=== PATIENT | male | born 1945 | race Caucasian/White ===

== ENCOUNTER → 2016-09-01 | Outpatient (CLI) | payer OTHER, MEDICAID ==
[2016-05-24 14:13] VITALS: BP 148/72
[2016-09-01 11:36] LABS: EOSINOPHILS # (AUTO) 0.1 x10^3/uL (0.0-0.2); EOSINOPHILS % (AUTO) 1.4 % (0.9-2.9); HEMATOCRIT 39.9 % (42.0-54.0); HEMOGLOBIN 13.4 g/dL (13.5-18.0); LYMPHOCYTES # (AUTO) 1.4 X10^3/uL (1.3-2.9); LYMPHOCYTES % (AUTO) 29.7 % (21.0-51.0); MEAN CORPUSCULAR HEMOGLOBIN 28.2 pg (27.0-34.0); MEAN CORPUSCULAR HGB CONC 33.5 g/dL (33.0-35.0); MEAN CORPUSCULAR VOLUME 84.2 fL (80.0-100.0); MEAN PLATELET VOLUME 7.2 fL (7.4-11.0); MONOCYTES # (AUTO) 0.4 x10^3/uL (0.3-0.8); MONOCYTES % (AUTO) 9.3 % (0.0-13.0); NEUTROPHILS # (AUTO) 2.8 x10^3/uL (2.2-4.8); NEUTROPHILS % (AUTO) 58.6 % (42.0-75.0); PLATELET COUNT 187 X10^3/uL (150.0-450.0); RED BLOOD COUNT 4.74 X10^6/uL (4.7-6.0); RED CELL DISTRIBUTION WIDTH 14.8 % (11.6-16.5); WHITE BLOOD COUNT 4.7 X10^3/uL (3.6-10.0)
[2016-09-01 13:39] LABS: TOTAL PSA 0.37 ng/mL (0.13-4.0)
[2016-09-02 11:00] LABS: ALANINE AMINOTRANSFERASE 24 Units/L (12-78); ALBUMIN 4.3 g/dL (3.4-5.0); ALKALINE PHOSPHATASE 31 Units/L (46-116); ASPARTATE AMINO TRANSFERASE 19 Units/L (15-37); BLOOD UREA NITROGEN 20 mg/dL (7-18); CALCIUM 9.6 mg/dL (8.5-10.1); CARBON DIOXIDE 23.4 mmol/L (21-32); CHLORIDE 105 mmol/L (98-107); CHOL/HDL RATIO 3.3 (0.0-5.0); CHOLESTEROL 119 mg/dL (0-200); COR NA(FOR HYPERGLY) 143 mmol/L (136-145); CREATININE 1.03 mg/dL (0.70-1.30); FREE T4 (FREE THYROXINE) 0.98 ng/dL (0.76-1.46); GLUCOSE 142 mg/dL (65-99); HDL CHOLESTEROL 36 mg/dL (40-60); SODIUM 142 mmol/L (136-145); TOTAL PROTEIN 7.6 g/dL (6.4-8.2); TRIGLYCERIDES 69 mg/dL (0-150); TSH (3RD GENERATION) 2.015 uIU/mL (0.358-3.74); eGFR BLACK RACES > 60 (>60); eGFR NON BLACK RACES > 60 (>60)
== END ==
LOC: LAB 10:49
PROVIDERS: ATTEND Internal Medicine
DX: N40.0 Benign prostatic hyperplasia without lower urinary tract symptoms (principal); E11.9 Type 2 diabetes mellitus without complications; I10 Essential (primary) hypertension; E78.4 Other hyperlipidemia
CPT/HCPCS: 36415; 80053; 80061; 84153; 84439; 84443; 85025

== ENCOUNTER 2016-12-24 10:55 | Inpatient (IN) | payer OTHER, MEDICAID ==
[2016-12-24] MEDS: NS 1/2 1000 ML IV 1,000 ML IV SCH ×2 (11:00→20:51)
[2016-12-24] MEDS ORDERED: TUSSIONEX PENNKINETIC SUSP PO PRN (11:02)
[2016-12-24] MEDS ORDERED: TYLENOL 500 MG TAB EXTRA STRENGTH PO STA (11:05)
[2016-12-24] MEDS ORDERED: NS 1000 ML 1,000 ML ONE (11:09)
[2016-12-24] MEDS ORDERED: SALINE 3% 15 ML NEB TX ONE (11:31)
[2016-12-24] MEDS ORDERED: NS 1/2 1000 ML IV 1,000 ML IV ONE ×2 (11:42→20:50)
--- NOTE | 2016-12-24 11:42 | RAD ---
AP Chest Indication: Cough with shortness of breath Comparison: 12/12/2015 Findings: The trachea is midline. The cardiac silhouette is unremarkable. The previous CABG changes and left chest wall pacemaker are stable. Ther are increasing interstitial opacities within the left lung s uspicious for developing atypical pneumonia/bronchitis. No pleural effusion or pneumothorax.. The b justine thorax is unremarkable. IMPRESSION: 1. Increased interstitial opacities within the left lung suspicious for developing atypical pneumon ia and or bronchitis. Reported By:
[2016-12-24] MEDS: LEVAQUIN PREMIX IV 750 MG 750 MG/150 ML BAG IV SCH (11:45)
[2016-12-24] MEDS ORDERED: SALINE 3% 15 ML NEB TX NEB ONE (11:50)
[2016-12-24 11:54] LABS: BASOPHILS % (AUTO) 0.5 % (0.2-1.0); HEMATOCRIT 37.4 % (42.0-54.0); HEMOGLOBIN 12.8 g/dL (13.5-18.0); LYMPHOCYTES # (AUTO) 0.4 X10^3/uL (1.3-2.9); LYMPHOCYTES % (AUTO) 10.7 % (21.0-51.0); MEAN CORPUSCULAR HEMOGLOBIN 28.8 pg (27.0-34.0); MEAN CORPUSCULAR HGB CONC 34.2 g/dL (33.0-35.0); MEAN CORPUSCULAR VOLUME 84.2 fL (80.0-100.0); MEAN PLATELET VOLUME 7.6 fL (7.4-11.0); MONOCYTES # (AUTO) 0.3 x10^3/uL (0.3-0.8); MONOCYTES % (AUTO) 6.7 % (0.0-13.0); NEUTROPHILS # (AUTO) 3.2 x10^3/uL (2.2-4.8); NEUTROPHILS % (AUTO) 81.1 % (42.0-75.0); PLATELET COUNT 171 X10^3/uL (150.0-450.0); RED BLOOD COUNT 4.44 X10^6/uL (4.7-6.0)
[2016-12-24 12:05] LABS: BLOOD UREA NITROGEN 18 mg/dL (7-18); CALCIUM 8.7 mg/dL (8.5-10.1); CARBON DIOXIDE 18.8 mmol/L (21-32); CHLORIDE 104 mmol/L (98-107); COR NA(FOR HYPERGLY) 140 mmol/L (136-145); CREATININE 1.26 mg/dL (0.70-1.30); GLUCOSE 170 mg/dL (65-99); SODIUM 138 mmol/L (136-145); TROPONIN I < 0.02 ng/mL (0-1.5); eGFR BLACK RACES > 60 (>60); eGFR NON BLACK RACES 60 (>60)
[2016-12-24 12:07] LABS: B-TYPE NATRIURETIC PEPTIDE 205 pg/mL (0-79)
[2016-12-24 12:10] LABS: ALANINE AMINOTRANSFERASE 8 Units/L (12-78); ALBUMIN 3.3 g/dL (3.4-5.0); ALKALINE PHOSPHATASE 36 Units/L (46-116); ASPARTATE AMINO TRANSFERASE 17 Units/L (15-37); CKMB % 1.3 % (<4); COR CA(FOR HYPOALB) 9.3 mg/dL (8.5-10.1); CREATINE KINASE 80 Units/L (39-308); TOTAL PROTEIN 6.4 g/dL (6.4-8.2)
[2016-12-24] MEDS: ROBITUSSIN DM PO SCH ×3 (12:12→20:43)
[2016-12-24 12:26] VITALS: BMI 30.4
[2016-12-24] MEDS ORDERED: PROVENTIL NEB TX 0.083% 2.5MG/ 3ML NEB PRN (12:27)
--- NOTE | 2016-12-24 12:55 | DR.H&P ---
H&P - History & Physical for Day of: H&P Date: 12/24/16 - Chief Complaint Chief Complaint: fever, cough, syncope - Allergies Allergies/Adverse Reactions: Allergies Allergy/AdvReac Type Severity Reaction Status Date / Time No Known Drug Allergies Allergy Verified 12/24/16 12:11 - History of Present Illness History of Present Illness: 71 WM DIRECT ADMIT FROM DR GAMBOA OFFICE AFTER PRESENTING WITH CO FEVER, WEAKNESS AND COUGH FOR LAST SEVERAL DAYS. PT WAS TREATED IN OCTOBER FOR BRONCHITIS AND COMPLETED OUTPT INJECTIONS OF ROCEPHIN AND PO ANITBIOTICS. PT HAD SYNCOPAL EPISODE IN PARKING LOT AT OFFICE THIS AM PRIOR TO ADMISSION. PT WAS NOTED TO BE DIAPHORETIC AND FEVER 102.2. PT HAS PMH OF CHF , COPD, CVA, DM, HTN, CAD, CHF, PT ADMITTED TO ICU FOR FURTHER EVALUATION OF SYNCOPE AND R/O PNEUMONIA. PLAN TO FOLLOW PNEUMONIA PATHWAY AND CARDIAC ENZYMES - Past Medical History Past Medical History: Angina, Arthritis, CHF, Coronary Artery Disease, CVA, Diabetes, Dyslipidemia, GERD, Hypertension, [place] - Past Surgical History Surgical History: Angioplasty/Stents, CABG/Valve Surgery, Cholecystectomy Additional Surgical History: Patient has pacemaker. - Family History Family Medical History: Diabetes Mellitus, Cancer, Hypertension - Social History Does patient currently use any type of tobacco product: No Have you used tobacco products in the last 12 months: No Type of Tobacco Use: None Alcohol Use: None Drug Use: None - Review of Systems Constitutional: Fever, Chills, Sweats, Weakness Eyes: No Symptoms Reported ENT: No Symptoms Reported Respiratory: Cough, Shortness of Breath, SOB with Excertion, Wheezing Cardiovascular: Edema, Light Headedness Gastrointestinal: No Symptoms Reported Genitourinary: No Symptoms Reported Musculoskeletal: No Symptoms Reported Skin: Other (DIAPHORESIS) Neurological: Weakness - Physical Exam Vital Signs: Temperature 100.5 F Pulse Rate [Apical] 92 Pulse Rate 91 Respiratory Rate 27 Blood Pressure [Left Arm] 87/51 Blood Pressure [Right Arm] 148/72 Blood Pressure 148/72 O2 Sat by Pulse Oximetry 95 Oriented: Normal Eyes: Normal Ear: Normal Nose: Normal Throat: Dry Respiratory: Rhonchi Throughout, RLL Diminished, LLL Diminished Cardiovascular: Tachycardia : Dysuria Auscultation: Bowel Sounds: Normal Palpation: Normal Tenderness: Normal Skin: Diaphoresis Musculoskeletal: Back:Thoracic, Back:Lumbar, Motor Deficit (RUE TREMOR) Psychiatric: Anxiety Affect: Anxious Speech Pattern: Appropriate - Assessment/Plan (1) Syncope Qualifiers: Syncope type: S Encounter type: E Status: Acute Plan: ADMIT ICU, CARDIAC MONITORING, CARDIAC ENZYMES. CXR ON ADMISSION, EKG ON ADMISSION, PNEUMONIA PATHWAY. O2, BLOOD AND SPUTUM CULTURES, IV LEVAQUIN AND ZOSYN. BLOOD SUGAR CONTROL, BLOOD PRESSURE CONTROL (2) Fever Qualifiers: Fever type: F Encounter type: E Status: Acute (3) Pneumonia Qualifiers: Pneumonia type: P Aspiration pneumonia type: A Laterality: L Lung location: L Status: Acute (4) Diabetes type 2, uncontrolled Qualifiers: Diabetes mellitus complication status: D Diabetes mellitus complication detail: D Diabetic retinopathy severity: D Proliferative retinopathy type: P Diabetes mellitus macular edema: D Diabetes mellitus care home insulin use : D Laterality: L Chronic kidney disease stage: C Status: Chronic (5) Hypertension Qualifiers: Hypertension type: essential hypertension Qualified Code(s): I10 - Essential (primary) hypertension Status: Chronic
[2016-12-24] MEDS: ZOSYN VIAL 4.5 GM 4.5 GM in NS 100 ML IV + SPIKE MINIBAG* 100 ML IV SCH ×2 (14:21→21:00)
[2016-12-24] MEDS: DUONEB 0.5 MG/3 MG NEB SCH (17:17)
[2016-12-24] MEDS ORDERED: HYDROCODONE PO PRN (18:04)
[2016-12-24] MEDS ORDERED: IBUPROFEN PO PRN (18:04)
[2016-12-24 19:39] LABS: BILIRUBIN,URINE NEGATIVE (NEGATIVE); BLOOD/HEMOGLOBIN,URINE NEGATIVE (NEGATIVE); GLUCOSE, URINE 2+ (NEGATIVE); KETONES,URINE NEGATIVE (NEGATIVE); LEUKOCYTE ESTERASE ,URINE NEGATIVE (NEGATIVE); NITRITES,URINE NEGATIVE (NEGATIVE); PROTEIN,URINE NEGATIVE (NEGATIVE); UROBILINOGEN,URINE NORMAL (NORMAL)
[2016-12-24 19:46] LABS: APPEARANCE,URINE HAZY (CLEAR); BACTERIA,URINE TRACE /HPF (NEGATIVE); COLOR,URINE YELLOW (YELLOW); RBC,URINE 0-2 /HPF (NEGATIVE); SQUAMOUS EPITHELIAL CELL,UR NEGATIVE /HPF (NEGATIVE)
[2016-12-24] MEDS: ISOSORBIDE DINITRATE PO SCH (20:40)
[2016-12-24] MEDS: RANEXA PO SCH (20:41)
[2016-12-24] MEDS: COREG TAB 3.125 MG PO SCH (20:42)
[2016-12-24] MEDS: LIPITOR TAB 40 MG PO SCH (20:42)
[2016-12-24] MEDS: TRICOR TAB 160 MG PO SCH (20:42)
[2016-12-24] MEDS: SNACK - Diabetic Appropriate PO SCH (20:51)
[2016-12-24] MEDS: NEURONTIN CAP 100 MG PO SCH (21:00)
[2016-12-24] MEDS ORDERED: PATIENT'S HOME MEDICATION (Fenofibrate [Fenofibrate 160 Mg] 160 MG) PO SCH (21:00)
[2016-12-25] MEDS: DUONEB 0.5 MG/3 MG NEB SCH ×5 (00:11→23:54)
[2016-12-25] MEDS: NS 1/2 1000 ML IV 1,000 ML IV SCH ×2 (04:02→16:46)
[2016-12-25] MEDS: ZOSYN VIAL 4.5 GM 4.5 GM in NS 100 ML IV + SPIKE MINIBAG* 100 ML IV SCH ×3 (05:39→20:59)
[2016-12-25] MEDS: NEURONTIN CAP 100 MG PO SCH ×3 (05:39→20:59)
[2016-12-25 05:47] LABS: BASOPHILS % (AUTO) 0.3 % (0.2-1.0); EOSINOPHILS # (AUTO) 0.1 x10^3/uL (0.0-0.2); EOSINOPHILS % (AUTO) 0.5 % (0.9-2.9); HEMATOCRIT 35.1 % (42.0-54.0); HEMOGLOBIN 12.1 g/dL (13.5-18.0); LYMPHOCYTES # (AUTO) 1.3 X10^3/uL (1.3-2.9); LYMPHOCYTES % (AUTO) 13.6 % (21.0-51.0); MEAN CORPUSCULAR HEMOGLOBIN 28.6 pg (27.0-34.0); MEAN CORPUSCULAR HGB CONC 34.4 g/dL (33.0-35.0); MEAN CORPUSCULAR VOLUME 83.2 fL (80.0-100.0); MEAN PLATELET VOLUME 7.5 fL (7.4-11.0); MONOCYTES # (AUTO) 0.9 x10^3/uL (0.3-0.8); MONOCYTES % (AUTO) 9.1 % (0.0-13.0); NEUTROPHILS # (AUTO) 7.6 x10^3/uL (2.2-4.8); NEUTROPHILS % (AUTO) 76.5 % (42.0-75.0); PLATELET COUNT 159 X10^3/uL (150.0-450.0); RED BLOOD COUNT 4.22 X10^6/uL (4.7-6.0); RED CELL DISTRIBUTION WIDTH 15.1 % (11.6-16.5); WHITE BLOOD COUNT 9.9 X10^3/uL (3.6-10.0)
[2016-12-25 05:54] LABS: ALANINE AMINOTRANSFERASE 18 Units/L (12-78); ALKALINE PHOSPHATASE 20 Units/L (46-116); ASPARTATE AMINO TRANSFERASE 19 Units/L (15-37); BLOOD UREA NITROGEN 13 mg/dL (7-18); CALCIUM 8.4 mg/dL (8.5-10.1); CARBON DIOXIDE 24.6 mmol/L (21-32); CHLORIDE 107 mmol/L (98-107); COR CA(FOR HYPOALB) 9.2 mg/dL (8.5-10.1); COR NA(FOR HYPERGLY) 142 mmol/L (136-145); CREATININE 1.06 mg/dL (0.70-1.30); GLUCOSE 130 mg/dL (65-99); SODIUM 141 mmol/L (136-145); TOTAL PROTEIN 6.5 g/dL (6.4-8.2); eGFR BLACK RACES > 60 (>60); eGFR NON BLACK RACES > 60 (>60)
[2016-12-25] MEDS: MICRO K EXTEN CAP 10 MEQ PO SCH (08:10)
[2016-12-25] MEDS: ZETIA TAB 10 MG PO SCH (08:10)
[2016-12-25] MEDS: COREG TAB 3.125 MG PO SCH ×2 (08:10→20:36)
[2016-12-25] MEDS: LASIX PO SCH (08:10)
[2016-12-25] MEDS: ISOSORBIDE DINITRATE PO SCH ×2 (08:10→20:37)
[2016-12-25] MEDS: ASPIRIN EC 81 MG PO SCH (08:10)
[2016-12-25] MEDS: CELEXA PO SCH (08:10)
[2016-12-25] MEDS: PriLOSEC PO SCH (08:10)
[2016-12-25] MEDS: LEVAQUIN PREMIX IV 750 MG 750 MG/150 ML BAG IV SCH (08:11)
[2016-12-25] MEDS: PLAVIX PO SCH (08:11)
[2016-12-25] MEDS: ROBITUSSIN DM PO SCH ×4 (08:11→20:39)
[2016-12-25] MEDS: RANEXA PO SCH ×2 (08:12→20:36)
[2016-12-25] MEDS ORDERED: OMEPRAZOLE 20 MG PO SCH (09:00)
[2016-12-25] MEDS ORDERED: PATIENT'S HOME MEDICATION (Potassium Chloride [K-Tab Er] 10 MEQ) PO SCH (09:00)
[2016-12-25] MEDS: HumuLIN R SUBCUT PRN ×2 (10:58→16:51)
--- NOTE | 2016-12-25 12:56 | PCM.PROG ---
Progress Note - Progress Note for Day of Date: 12/25/16 - Subjective Subjective: 71 wm admitted one day ago with pneumonia. pt states he has continues with cough, "feels bad" not able to produce sputum culture. continue iv abtx, pulmonary toileting, repeat am labs and cxr. - Past Medical Family Social History Past Med/Fam/Surg Hx: No changes since H&P Allergies: Allergies No Known Drug Allergies Allergy (Verified 12/24/16 12:11) - Review of Systems ROS: No change since H&P - Vital Signs and I&O's Vital Signs: Temperature 98.4 F Pulse Rate [Apical] 63 Pulse Rate 70 Respiratory Rate 14 Blood Pressure [Left Arm] 102/46 Blood Pressure [Right Arm] 148/72 Blood Pressure 148/72 O2 Sat by Pulse Oximetry 96 Intake and Output: Intake & Output 12/23/16 12/24/16 12/25/16 12/26/16 11:59 11:59 11:59 11:59 Intake Total 3400 Output Total 2450 Balance 950 - Physical Exam Oriented: Normal Eyes: Normal Ear: Normal Nose: Normal Throat: Dry Respiratory: Diminished, Rhonchi Cardiovascular: Tachycardia : Dysuria Auscultation: Bowel Sounds: Normal Tenderness: Normal Skin: Diaphoresis Musculoskeletal: Back:Thoracic, Back:Lumbar, Motor Deficit (RUE TREMOR) Psychiatric: Anxiety Affect: Anxious Speech Pattern: Clear, Appropriate - Laboratory and Diagnostics Result Diagrams: 12/25/16 05:27 12/25/16 05:27 Labs: Laboratory WBC 9.9 X10^3/uL (3.6-10.0) 12/25/16 05:27 RBC 4.22 X10^6/uL (4.7-6.0) L 12/25/16 05:27 Hgb 12.1 g/dL (13.5-18.0) L 12/25/16 05:27 Hct 35.1 % (42.0-54.0) L 12/25/16 05:27 MCV 83.2 fL (80.0-100.0) 12/25/16 05:27 MCH 28.6 pg (27.0-34.0) 12/25/16 05:27 MCHC 34.4 g/dL (33.0-35.0) 12/25/16 05:27 RDW 15.1 % (11.6-16.5) 12/25/16 05:27 Plt Count 159 X10^3/uL (150.0-450.0) 12/25/16 05:27 MPV 7.5 fL (7.4-11.0) 12/25/16 05:27 Neut % 76.5 % (42.0-75.0) H 12/25/16 05:27 Lymph % 13.6 % (21.0-51.0) L 12/25/16 05:27 Nelson % 9.1 % (0.0-13.0) 12/25/16 05:27 Eos % 0.5 % (0.9-2.9) L 12/25/16 05:27 Baso % 0.3 % (0.2-1.0) 12/25/16 05:27 Neut # 7.6 x10^3/uL (2.2-4.8) H 12/25/16 05:27 Lymph # 1.3 X10^3/uL (1.3-2.9) 12/25/16 05:27 Nelson # 0.9 x10^3/uL (0.3-0.8) H 12/25/16 05:27 Eos # 0.1 x10^3/uL (0.0-0.2) 12/25/16 05:27 Baso # 0.0 X10^3/uL (0.0-0.1) 12/25/16 05:27 Absolute Nucleated RBC 0.0 /100WBC 12/25/16 05:27 Sodium 141 mmol/L (136-145) 12/25/16 05:27 Corrected Sodium 142 mmol/L (136-145) 12/25/16 05:27 Potassium 3.9 mmol/L (3.5-5.1) 12/25/16 05:27 Chloride 107 mmol/L (98-107) 12/25/16 05:27 Carbon Dioxide 24.6 mmol/L (21-32) 12/25/16 05:27 BUN 13 mg/dL (7-18) 12/25/16 05:27 Creatinine 1.06 mg/dL (0.70-1.30) 12/25/16 05:27 Est GFR (MDRD) Af Amer > 60 (>60) 12/25/16 05:27 Est GFR (MDRD) Non-Af > 60 (>60) 12/25/16 05:27 Glucose 130 mg/dL (65-99) H 12/25/16 05:27 Calcium 8.4 mg/dL (8.5-10.1) L 12/25/16 05:27 Corrected Calcium 9.2 mg/dL (8.5-10.1) 12/25/16 05:27 Total Bilirubin 1.30 mg/dL (0.2-1.0) H 12/25/16 05:27 AST 19 Units/L (15-37) 12/25/16 05:27 ALT 18 Units/L (12-78) 12/25/16 05:27 Alkaline Phosphatase 20 Units/L (46-116) L 12/25/16 05:27 Creatine Kinase 80 Units/L (39-308) 12/24/16 11:21 CK-MB (CK-2) 1.0 ng/mL (0-4.0) 12/24/16 11:21 CK/CKMB % Calc 1.3 % (<4) 12/24/16 11:21 Troponin I < 0.02 ng/mL (0-1.5) 12/24/16 11:21 B-Natriuretic Peptide 205 pg/mL (0-79) H 12/24/16 11:21 Total Protein 6.5 g/dL (6.4-8.2) 12/25/16 05:27 Albumin 3.0 g/dL (3.4-5.0) L 12/25/16 05:27 Globulin 3.5 g/dL (2.5-4.5) 12/25/16 05:27 Albumin/Globulin Ratio 0.9 Ratio (1.1-2.1) L 12/25/16 05:27 Specimen Type Clean catch urine 12/24/16 19:16 Urine Color Yellow (YELLOW) 12/24/16 19:16 Urine Appearance Hazy (CLEAR) 12/24/16 19:16 Urine pH 5.0 (5.0 - 8.0) 12/24/16 19:16 Ur Specific [place] 1.010 (1.000-1.030) 12/24/16 19:16 Urine Protein Negative (NEGATIVE) 12/24/16 19:16 Urine Glucose (UA) 2+ (NEGATIVE) 12/24/16 19:16 Urine Ketones Negative (NEGATIVE) 12/24/16 19:16 Urine Occult Blood Negative (NEGATIVE) 12/24/16 19:16 Urine Nitrite Negative (NEGATIVE) 12/24/16 19:16 Urine Bilirubin Negative (NEGATIVE) 12/24/16 19:16 Urine Urobilinogen Normal (NORMAL) 12/24/16 19:16 Ur Leukocyte Esterase Negative (NEGATIVE) 12/24/16 19:16 Urine RBC 0-2 /HPF (NEGATIVE) 12/24/16 19:16 Urine WBC 0-2 /HPF (NEGATIVE) 12/24/16 19:16 Ur Squamous Epith Cells Negative /HPF (NEGATIVE) 12/24/16 19:16 Urine Bacteria Trace /HPF (NEGATIVE) 12/24/16 19:16 Ur Culture Indicated? No/not indicated 12/24/16 19:16 - Plan (1) Pneumonia Status: Acute Qualifiers: Pneumonia type: P Aspiration pneumonia type: A Laterality: L Lung location: L Plan: CONTINUE IV ATBX, RESP THERAPY, JET NEBS, SUPPLEMENTAL O2. BLOOD SUGAR CONTROL, BLOOD PRESSURE CONTROL (2) Fever Status: Acute Qualifiers: Fever type: F Encounter type: E (3) Diabetes type 2, uncontrolled Status: Chronic Qualifiers: Diabetes mellitus complication status: D Diabetes mellitus complication detail: D Diabetic retinopathy severity: D Proliferative retinopathy type: P Diabetes mellitus macular edema: D Diabetes mellitus terminologist insulin use : D Laterality: L Chronic kidney disease stage: C (4) Hypertension Status: Chronic Qualifiers: Hypertension type: essential hypertension Qualified Code(s): I10 - Essential (primary) hypertension
[2016-12-25] MEDS ORDERED: NS 1/2 1000 ML IV 1,000 ML IV ONE (16:44)
[2016-12-25] MEDS: LIPITOR TAB 40 MG PO SCH (20:36)
[2016-12-25] MEDS: SNACK - Diabetic Appropriate PO SCH (20:38)
[2016-12-25] MEDS: TRICOR TAB 160 MG PO SCH (20:38)
[2016-12-25] MEDS ORDERED: ARICEPT TAB 10 MG PO SCH (21:00)
[2016-12-26] MEDS ORDERED: NS 1/2 1000 ML IV 1,000 ML IV ONE ×2 (05:32→21:31)
[2016-12-26] MEDS: DUONEB 0.5 MG/3 MG NEB SCH ×4 (05:32→23:10)
[2016-12-26] MEDS: ZOSYN VIAL 4.5 GM 4.5 GM in NS 100 ML IV + SPIKE MINIBAG* 100 ML IV SCH ×3 (05:38→21:38)
[2016-12-26] MEDS: NS 1/2 1000 ML IV 1,000 ML IV SCH ×3 (05:38→22:36)
[2016-12-26] MEDS: NEURONTIN CAP 100 MG PO SCH ×3 (05:39→21:40)
[2016-12-26 06:12] LABS: BASOPHILS % (AUTO) 0.6 % (0.2-1.0); EOSINOPHILS # (AUTO) 0.2 x10^3/uL (0.0-0.2); EOSINOPHILS % (AUTO) 2.3 % (0.9-2.9); HEMATOCRIT 32.6 % (42.0-54.0); HEMOGLOBIN 11.2 g/dL (13.5-18.0); LYMPHOCYTES # (AUTO) 1.2 X10^3/uL (1.3-2.9); LYMPHOCYTES % (AUTO) 15.5 % (21.0-51.0); MEAN CORPUSCULAR HEMOGLOBIN 28.6 pg (27.0-34.0); MEAN CORPUSCULAR HGB CONC 34.5 g/dL (33.0-35.0); MEAN CORPUSCULAR VOLUME 82.9 fL (80.0-100.0); MEAN PLATELET VOLUME 7.5 fL (7.4-11.0); MONOCYTES # (AUTO) 0.6 x10^3/uL (0.3-0.8); MONOCYTES % (AUTO) 8.6 % (0.0-13.0); NEUTROPHILS # (AUTO) 5.5 x10^3/uL (2.2-4.8); PLATELET COUNT 158 X10^3/uL (150.0-450.0); RED BLOOD COUNT 3.93 X10^6/uL (4.7-6.0); RED CELL DISTRIBUTION WIDTH 14.3 % (11.6-16.5); WHITE BLOOD COUNT 7.5 X10^3/uL (3.6-10.0)
[2016-12-26 06:24] LABS: ALANINE AMINOTRANSFERASE 16 Units/L (12-78); ALBUMIN 2.7 g/dL (3.4-5.0); ALKALINE PHOSPHATASE 22 Units/L (46-116); ASPARTATE AMINO TRANSFERASE 14 Units/L (15-37); BLOOD UREA NITROGEN 12 mg/dL (7-18); CALCIUM 8.7 mg/dL (8.5-10.1); CARBON DIOXIDE 24.3 mmol/L (21-32); CHLORIDE 107 mmol/L (98-107); COR CA(FOR HYPOALB) 9.7 mg/dL (8.5-10.1); COR NA(FOR HYPERGLY) 142 mmol/L (136-145); CREATININE 1.04 mg/dL (0.70-1.30); GLUCOSE 160 mg/dL (65-99); SODIUM 141 mmol/L (136-145); TOTAL PROTEIN 6.6 g/dL (6.4-8.2); eGFR BLACK RACES > 60 (>60); eGFR NON BLACK RACES > 60 (>60)
--- NOTE | 2016-12-26 07:08 | RAD ---
HISTORY: 71-year-old male with shortness of breath. Study: Frontal view of the chest. Comparison: Chest radiograph December 24, 2016 Findings: Surgical and support devices are stable. The trachea is midline. The cardiac silhouette is stable. Worsening airspace opacities in the left lung base without pneumothorax or large effusion. Soft tissues and osseous structures are stable. IMPRESSION: 1. Worsening airspace opacities left lung base concerning for pneumonia, correlate clinically. Reported By:
[2016-12-26] MEDS: LEVAQUIN PREMIX IV 750 MG 750 MG/150 ML BAG IV SCH ×2 (08:27→09:09)
[2016-12-26] MEDS: ISOSORBIDE DINITRATE PO SCH ×3 (08:27→21:39)
[2016-12-26] MEDS: ROBITUSSIN DM PO SCH ×5 (08:27→21:41)
[2016-12-26] MEDS: RANEXA PO SCH ×3 (08:28→21:41)
[2016-12-26] MEDS: LASIX PO SCH ×2 (08:28→09:09)
[2016-12-26] MEDS: COREG TAB 3.125 MG PO SCH ×3 (08:28→21:40)
[2016-12-26] MEDS: ZETIA TAB 10 MG PO SCH ×2 (08:28→09:10)
[2016-12-26] MEDS: ASPIRIN EC 81 MG PO SCH ×2 (08:28→09:08)
[2016-12-26] MEDS: PriLOSEC PO SCH ×2 (08:29→09:10)
[2016-12-26] MEDS: CELEXA PO SCH ×2 (08:29→09:08)
[2016-12-26] MEDS: PLAVIX PO SCH ×2 (08:29→09:10)
[2016-12-26] MEDS: MICRO K EXTEN CAP 10 MEQ PO SCH ×2 (08:30→09:09)
[2016-12-26] MEDS ORDERED: HYDROCODONE PO PRN (08:54)
[2016-12-26] MEDS ORDERED: IBUPROFEN PO PRN (08:54)
[2016-12-26] MEDS ORDERED: PROVENTIL NEB TX 0.083% 2.5MG/ 3ML NEB PRN (08:54)
[2016-12-26] MEDS ORDERED: TUSSIONEX PENNKINETIC SUSP PO PRN (08:54)
[2016-12-26] MEDS ORDERED: FOLIC ACID TAB 1 MG PO SCH (09:00)
[2016-12-26] MEDS ORDERED: VITAMIN B-12 PO SCH (09:00)
[2016-12-26] MEDS ORDERED: CYANOCOBALAMIN PO SCH (09:00)
[2016-12-26] MEDS ORDERED: NORCO 7.5/325 MG TAB PO PRN (09:01)
[2016-12-26] MEDS: FOLIC ACID TAB 1 MG PO SCH (09:08)
[2016-12-26] MEDS: VITAMIN B-12 PO SCH (09:10)
[2016-12-26] MEDS: HumuLIN R SUBCUT PRN (11:29)
[2016-12-26] MEDS ORDERED: SNACK - Diabetic Appropriate PO SCH ×2 (20:00)
[2016-12-26] MEDS ORDERED: LIPITOR TAB 40 MG PO SCH (21:00)
[2016-12-26] MEDS ORDERED: TRICOR TAB 160 MG PO SCH (21:00)
[2016-12-26] MEDS ORDERED: ARICEPT TAB 10 MG PO SCH (21:00)
[2016-12-27] MEDS: DUONEB 0.5 MG/3 MG NEB SCH (05:10)
[2016-12-27 05:24] LABS: BASOPHILS % (AUTO) 0.5 % (0.2-1.0); EOSINOPHILS # (AUTO) 0.2 x10^3/uL (0.0-0.2); EOSINOPHILS % (AUTO) 3.3 % (0.9-2.9); HEMATOCRIT 32.9 % (42.0-54.0); HEMOGLOBIN 11.5 g/dL (13.5-18.0); LYMPHOCYTES # (AUTO) 1.2 X10^3/uL (1.3-2.9); LYMPHOCYTES % (AUTO) 18.4 % (21.0-51.0); MEAN CORPUSCULAR HEMOGLOBIN 28.9 pg (27.0-34.0); MEAN CORPUSCULAR HGB CONC 34.9 g/dL (33.0-35.0); MEAN CORPUSCULAR VOLUME 82.8 fL (80.0-100.0); MEAN PLATELET VOLUME 7.3 fL (7.4-11.0); MONOCYTES # (AUTO) 0.5 x10^3/uL (0.3-0.8); MONOCYTES % (AUTO) 8.2 % (0.0-13.0); NEUTROPHILS # (AUTO) 4.4 x10^3/uL (2.2-4.8); NEUTROPHILS % (AUTO) 69.6 % (42.0-75.0); PLATELET COUNT 184 X10^3/uL (150.0-450.0); RED BLOOD COUNT 3.97 X10^6/uL (4.7-6.0); RED CELL DISTRIBUTION WIDTH 14.8 % (11.6-16.5); WHITE BLOOD COUNT 6.4 X10^3/uL (3.6-10.0)
[2016-12-27 05:34] LABS: ALANINE AMINOTRANSFERASE 16 Units/L (12-78); ALBUMIN 2.7 g/dL (3.4-5.0); ALKALINE PHOSPHATASE 22 Units/L (46-116); ASPARTATE AMINO TRANSFERASE 13 Units/L (15-37); BLOOD UREA NITROGEN 12 mg/dL (7-18); CALCIUM 8.9 mg/dL (8.5-10.1); CARBON DIOXIDE 25.5 mmol/L (21-32); CHLORIDE 107 mmol/L (98-107); COR CA(FOR HYPOALB) 9.9 mg/dL (8.5-10.1); COR NA(FOR HYPERGLY) 142 mmol/L (136-145); CREATININE 1.02 mg/dL (0.70-1.30); GLUCOSE 179 mg/dL (65-99); SODIUM 140 mmol/L (136-145); TOTAL PROTEIN 6.5 g/dL (6.4-8.2); eGFR BLACK RACES > 60 (>60); eGFR NON BLACK RACES > 60 (>60)
[2016-12-27] MEDS: ZOSYN VIAL 4.5 GM 4.5 GM in NS 100 ML IV + SPIKE MINIBAG* 100 ML IV SCH (06:15)
[2016-12-27] MEDS: NEURONTIN CAP 100 MG PO SCH (06:15)
[2016-12-27] MEDS: HumuLIN R SUBCUT PRN (06:19)
--- NOTE | 2016-12-27 06:56 | RAD ---
HISTORY: cough and pneumonia Study: Portable chest Comparison: 12/26/2016 Findings: The heart is normal. The pulmonary vessels are less prominent centrally . There is hazy left basilar opacity which is decreased. No large effusion is seen . There is a left pacemaker in place which is unchanged . There postop changes are seen in the mediastinum and sternum which are unchanged. IMPRESSION: Resolving pulmonary edema. Slowly resolving left basilar infiltrate. Reported By:
[2016-12-27] MEDS: LEVAQUIN PREMIX IV 750 MG 750 MG/150 ML BAG IV SCH (08:32)
[2016-12-27] MEDS: RANEXA PO SCH (08:32)
[2016-12-27] MEDS: VITAMIN B-12 PO SCH (08:33)
[2016-12-27] MEDS: MICRO K EXTEN CAP 10 MEQ PO SCH (08:33)
[2016-12-27] MEDS: ASPIRIN EC 81 MG PO SCH (08:33)
[2016-12-27] MEDS: LASIX PO SCH (08:33)
[2016-12-27] MEDS: ZETIA TAB 10 MG PO SCH (08:34)
[2016-12-27] MEDS: FOLIC ACID TAB 1 MG PO SCH (08:34)
[2016-12-27] MEDS: COREG TAB 3.125 MG PO SCH (08:34)
[2016-12-27] MEDS: PLAVIX PO SCH (08:34)
[2016-12-27] MEDS: CELEXA PO SCH (08:35)
[2016-12-27] MEDS: ISOSORBIDE DINITRATE PO SCH (08:35)
[2016-12-27] MEDS: ROBITUSSIN DM PO SCH (08:35)
[2016-12-27] MEDS: PriLOSEC PO SCH (08:35)
[2016-12-27] MEDS ORDERED: NS 1/2 1000 ML IV 0 ML IV ONE (09:02)
[2016-12-27 09:07] VITALS: BP 131/63
[2016-12-27] MEDS: NS 1/2 1000 ML IV 1,000 ML IV SCH (09:18)
== END 2016-12-27 11:10 | disposition home or self-care (01) | DRG 195 ==
LOC: UNDOADMIN 10:55 → ICU 10:55
PROVIDERS: ADMIT Internal Medicine; ATTEND Internal Medicine
DX: J18.8 Other pneumonia, unspecified organism (principal); R55 Syncope and collapse; R50.9 Fever, unspecified; J44.9 Chronic obstructive pulmonary disease, unspecified; E11.65 Type 2 diabetes mellitus with hyperglycemia; I10 Essential (primary) hypertension; I25.10 Atherosclerotic heart disease of native coronary artery without angina pectoris; M13.89 Other specified arthritis, multiple sites; E78.2 Mixed hyperlipidemia; K21.9 Gastro-esophageal reflux disease without esophagitis; R06.02 Shortness of breath
CPT/HCPCS: 36415; 71010; 80053; 81001; 82550; 82553; 83880; 84484; 85025; 87040; 93005; 93010; 94640; A4222; J1815; J1956; J2543; J7620

== ENCOUNTER → 2017-06-29 | Outpatient (CLI) | payer MEDICAID, OTHER ==
[2017-06-29 09:52] LABS: BASOPHILS % (AUTO) 0.5 % (0.2-1.0); EOSINOPHILS # (AUTO) 0.1 x10^3/uL (0.0-0.2); EOSINOPHILS % (AUTO) 1.4 % (0.9-2.9); HEMATOCRIT 41.7 % (42.0-54.0); HEMOGLOBIN 14.2 g/dL (13.5-18.0); LYMPHOCYTES # (AUTO) 0.8 X10^3/uL (1.3-2.9); LYMPHOCYTES % (AUTO) 12.6 % (21.0-51.0); MEAN CORPUSCULAR HEMOGLOBIN 29.1 pg (27.0-34.0); MEAN CORPUSCULAR HGB CONC 34.1 g/dL (33.0-35.0); MEAN CORPUSCULAR VOLUME 85.2 fL (80.0-100.0); MEAN PLATELET VOLUME 8.2 fL (7.4-11.0); MONOCYTES # (AUTO) 0.7 x10^3/uL (0.3-0.8); MONOCYTES % (AUTO) 10.6 % (0.0-13.0); NEUTROPHILS # (AUTO) 4.8 x10^3/uL (2.2-4.8); NEUTROPHILS % (AUTO) 74.9 % (42.0-75.0); PLATELET COUNT 167 X10^3/uL (150.0-450.0); RED BLOOD COUNT 4.89 X10^6/uL (4.7-6.0); RED CELL DISTRIBUTION WIDTH 14.5 % (11.6-16.5); WHITE BLOOD COUNT 6.4 X10^3/uL (3.6-10.0)
[2017-06-29 09:55] LABS: ALANINE AMINOTRANSFERASE 445 Units/L (12-78); ALBUMIN 3.5 g/dL (3.4-5.0); ALKALINE PHOSPHATASE 181 Units/L (46-116); ASPARTATE AMINO TRANSFERASE 509 Units/L (15-37); BLOOD UREA NITROGEN 14 mg/dL (7-18); CALCIUM 10.1 mg/dL (8.5-10.1); CARBON DIOXIDE 23.7 mmol/L (21-32); CHLORIDE 99 mmol/L (98-107); CHOLESTEROL 282 mg/dL (0-200); COR NA(FOR HYPERGLY) 135 mmol/L (136-145); CREATININE 0.89 mg/dL (0.70-1.30); HDL CHOLESTEROL 6 mg/dL (40-60); SODIUM 133 mmol/L (136-145); TOTAL PROTEIN 7.8 g/dL (6.4-8.2); TRIGLYCERIDES 324 mg/dL (0-150); eGFR BLACK RACES > 60 (>60); eGFR NON BLACK RACES > 60 (>60)
[2017-06-29 09:59] LABS: CREATININE,URINE 98.14 mg/dL (40-278); MICROALBUMIN,URINE 11.3 mg/L
[2017-06-29 10:01] LABS: HEMOGLOBIN A1C 8.1 %
[2017-06-29 10:26] LABS: TOTAL PSA 0.33 ng/mL (0.13-4.0)
[2017-07-02 00:37] LABS: HEPATITIS A ANTIBODY IGM Negative (Negative)
[2017-07-02 07:17] LABS: HEPATITIS B CORE IGM Positive (Negative); HEPATITIS B SURFACE ANTIGEN Negative (Negative)
[2017-07-05 07:02] LABS: METHYLMALONIC ACID <0.10 umol/L (0.00-0.40)
== END ==
LOC: LAB 09:19
PROVIDERS: ATTEND Nurse Practitioner Family
DX: I10 Essential (primary) hypertension (principal); E78.4 Other hyperlipidemia; E11.9 Type 2 diabetes mellitus without complications; E56.8 Deficiency of other vitamins; R35.8 Other polyuria; R17 Unspecified jaundice
CPT/HCPCS: 36415; 80053; 80061; 80074; 82043; 82607; 82746; 83036; 83918; 84153; 85025

== ENCOUNTER → 2017-06-30 | Outpatient (CLI) | payer OTHER ==
--- NOTE | 2017-06-30 12:10 | US ---
HISTORY: Jaundice. Study: Right upper quadrant abdominal ultrasound Comparison: None. Technique: Multiple james scale and color flow Doppler images of the right upper quadrant were obtaine d. Findings: The liver is enlarged to 18.0 cm and demonstrates increased echogenicity consistent with diffuse fatt y infiltration. No focal intraparenchymal mass or intrahepatic biliary ductal dilatation can be obse rved. The gallbladder is surgically absent. The common bile duct is unremarkable measuring 5 mm. The right kidney appears normal in size without focal parenchymal mass or nephrolithiasis. The right kidney measurers 11.6 cm. No hydronephrosis or perirenal fluid can be observed. The pancreas is la rgely obscured by overlying bowel gas. IMPRESSION: 1. Hepatomegaly and hepatic steatosis. 2. The gallbladder is surgically absent. Reported By:
== END | disposition home or self-care (01) | DRG 443 ==
LOC: RAD 08:31
PROVIDERS: ATTEND Nurse Practitioner Family
DX: R17 Unspecified jaundice (principal); R16.0 Hepatomegaly, not elsewhere classified
CPT/HCPCS: 76705

== ENCOUNTER 2017-07-01 10:34 | Emergency (ER) | payer OTHER ==
[2017-07-01 10:40] VITALS: BP 184/81; BMI 35.5
--- NOTE | 2017-07-01 11:50 | DR.GENAD ---
HPI - PCP Primary Care Physician: terese beckett - Complaint/Symptoms Chief Complaint Doctors Comments: Patient presents to the ED secondary to being evaluated by his primary care physician. He has an appointment with Dr Lagos at 1400 today. Patient is in no pain and vital signs are stable. He is jaundiced with complete outpatient work up. Chief Complaint:: yellowing of skin, schlera of eyes, and chest wall. no current history of liver disease. abd pain since wednesday - Source History Provided: Patient - Mode of Arrival Mode of Arrival: Ambulatory - Timing Onset of Chief Complaint: 06/27/17 PMH - PMH Past Medical History: Yes Past Medical History: Angina, Arthritis, CHF, Coronary Artery Disease, CVA, Diabetes, Dyslipidemia, GERD, Hypertension, [place] Past Surgical History: No Surgical History: Angioplasty/Stents, CABG/Valve Surgery, Cholecystectomy - Family History History of Family Medical Conditions: Yes Family Medical History: Diabetes Mellitus, Cancer, Hypertension - Social History Does patient currently use any type of tobacco product: No Have you used tobacco products in the last 12 months: No Type of Tobacco Use: None Does any household member use tobacco: No Alcohol Use: None Do you use any recreational Drugs:: No Lives With: Family Lives Where: Home - infectious screening In the last 2 months have you had wt loss of >10#?: NO Have you had fever, night sweats or hemotysis?: No Have you traveled outside the country in the last 6 months?: No Isolation: Standard ROS - Review of Systems Constitutional: No Symptoms Reported Eyes: No Symptoms Reported ENTM: No Symptoms Reported Respiratoy: No Symptoms Reported Cardiovascular: No Symptoms Reported Gastrointestinal/Abdominal: No Symptoms Reported Genitourinary: No Symptoms Reported Neurological: No Symptoms Reported Musculoskeletal: No Symptoms Reported Integumentary: No Symptoms Reported Hematologic/Lymphatic: No Symptoms Reported Psychiatric: No Symptoms Reported PE - Vital Signs Vitals: Temperature 97.9 F Pulse Rate 81 Respiratory Rate 20 Blood Pressure [Left Arm] 131/63 Blood Pressure [Right Arm] 148/72 Blood Pressure 184/81 O2 Sat by Pulse Oximetry 100 - General Limitations: No Limitations General Appearance: Alert, In No Apparent Distress - Head Head Exam: Normal Inspection, Atraumatic - Eyes Eye exam: Scleral Icterus - ENT ENT Exam: Normal Exam External Ear Exam: Normal External Inspection TM/Canal Exam: Bilateral Normal Nose Exam: Normal Nose Exam Mouth Exam: Normal Inspection Throat Exam: Normal Inspection - Neck Neck Exam: Normal Inspection - Chest Chest Inspection: Normal Inspection - Respiratory Respiratory Exam: Normal Lung Sounds Bilat Respiratory Exam: Bilateral Clear to Auscultation - Cardiovascular Cardiovascular Exam: Regular Rate, Normal Rhythm - Abdominal Exam Abdominal Exam: Normal Inspection Abdominal Tenderness: negative: RUQ, RLQ, LUQ, LLQ, Epigastrium, Suprapubic, Diffuse, Mild, Moderate, Severe, Other - Extremities Extremities Exam: Normal Inspection, Full ROM - Back Back Exam: Normal Inspection, Full ROM - Neurologic Neurological Exam: Alert, Oriented X3, CN II-XII Intact - Psychiatric Psychiatric Exam: Normal Affect, Normal Mood - Skin Skin Exam: Warm, Dry, Intact, Other (jaundiced) ROR - XRAY XRAY Interpreted by: Radiologist (CT abd/pel: Mildly enlarged liver and spleen without focal mass. Prominent portal vein diameter suggestedd ty possibility of portal hypertension. The liever measures over 19 cm sagittal length without focal mass. There is normal attenuation of the liver. The portal vein is distended. The spleen is prominent. No definite portal venous collaterals are demonstrated. The pancreas kidneys and adrenal glands are unremarkable. The gallbladder surgicall surgically absent. No biliary dilatation is suggested. There is no ascites or adenopathy or bowel distention. The appendix is normal. The prostate is normal. The urinary bladder is unremarkable. There is no aneursysm or adenopathy. There is no significant bony abnormality.) - Diagnosis Discharge Problem: Portal hypertension - Discharge Plan Condition: Stable - Follow ups/Referrals Follow ups/Referrals: TERESE BECKETT [Primary Care Provider] - 3 days - Instructions
[2017-07-01] MEDS ORDERED: NS 100 ML IV 100 ML IV ONE (12:30)
--- NOTE | 2017-07-01 13:26 | CT ---
History: Jaundice Study: CT abdomen and pelvis with IV contrast. Sagittal and coronal reformations were provided. Comparison: None Findings: The liver measures over 19 cm sagittal length without focal mass. There is normal attenuati on of the liver. The portal vein is distended. The spleen is prominent. No definite portal venous col laterals are demonstrated. The pancreas kidneys and adrenal glands are unremarkable. The gallbladder surgically absent. No biliary dilatation is suggested. There is no ascites or adenopathy or bowel dis tention. The appendix is normal. The prostate is normal. The urinary bladder is unremarkable. There i s no aneurysm or adenopathy. There is no significant bony abnormality. Impression: 1. Mildly enlarged liver and spleen without focal mass. Prominent portal vein diameter suggested the possibility of portal hypertension Reported By:
== END 2017-07-01 15:02 | disposition home or self-care (01) ==
LOC: ER 10:43
DX: K76.6 Portal hypertension (principal); R16.0 Hepatomegaly, not elsewhere classified
CPT/HCPCS: 74177; 96365; 99282; 99283; A4222

== ENCOUNTER → 2017-07-01 | Outpatient (CLI) | payer OTHER ==
[2017-07-01 10:40] LABS: CREATININE,URINE 92.27 mg/dL (40-278); MICROALBUMIN,URINE 12.7 mg/L
[2017-07-01 10:43] LABS: ALANINE AMINOTRANSFERASE 554 Units/L (12-78); ALBUMIN 3.1 g/dL (3.4-5.0); ALKALINE PHOSPHATASE 266 Units/L (46-116); ASPARTATE AMINO TRANSFERASE 535 Units/L (15-37); BLOOD UREA NITROGEN 13 mg/dL (7-18); CALCIUM 9.8 mg/dL (8.5-10.1); CARBON DIOXIDE 26.2 mmol/L (21-32); CHLORIDE 98 mmol/L (98-107); CHOLESTEROL 372 mg/dL (0-200); COR NA(FOR HYPERGLY) 136 mmol/L (136-145); CREATININE 0.87 mg/dL (0.70-1.30); HDL CHOLESTEROL 4 mg/dL (40-60); SODIUM 133 mmol/L (136-145); TOTAL PROTEIN 7.4 g/dL (6.4-8.2); TRIGLYCERIDES 424 mg/dL (0-150); eGFR BLACK RACES > 60 (>60); eGFR NON BLACK RACES > 60 (>60)
[2017-07-01 10:51] LABS: BASOPHILS # (AUTO) 0.1 X10^3/uL (0.0-0.1); BASOPHILS % (AUTO) 1.4 % (0.2-1.0); EOSINOPHILS # (AUTO) 0.1 x10^3/uL (0.0-0.2); EOSINOPHILS % (AUTO) 1.1 % (0.9-2.9); HEMATOCRIT 39.9 % (42.0-54.0); HEMOGLOBIN 13.6 g/dL (13.5-18.0); LYMPHOCYTES # (AUTO) 0.7 X10^3/uL (1.3-2.9); LYMPHOCYTES % (AUTO) 10.1 % (21.0-51.0); MEAN CORPUSCULAR HEMOGLOBIN 29.5 pg (27.0-34.0); MEAN CORPUSCULAR HGB CONC 34.2 g/dL (33.0-35.0); MEAN CORPUSCULAR VOLUME 86.2 fL (80.0-100.0); MEAN PLATELET VOLUME 8.6 fL (7.4-11.0); MONOCYTES # (AUTO) 0.4 x10^3/uL (0.3-0.8); MONOCYTES % (AUTO) 6.7 % (0.0-13.0); NEUTROPHILS # (AUTO) 5.2 x10^3/uL (2.2-4.8); NEUTROPHILS % (AUTO) 80.7 % (42.0-75.0); PLATELET COUNT 179 X10^3/uL (150.0-450.0); RED BLOOD COUNT 4.63 X10^6/uL (4.7-6.0); RED CELL DISTRIBUTION WIDTH 14.3 % (11.6-16.5); WHITE BLOOD COUNT 6.5 X10^3/uL (3.6-10.0)
[2017-07-01 11:37] LABS: IRON 75 ug/dL (50-175); TOTAL IRON BINDING CAPACITY 390 ug/dL (250-450); TRANSFERRIN 304 mg/dL (202-364)
[2017-07-04 00:54] LABS: HEPATITIS A ANTIBODY IGM Negative (Negative)
[2017-07-04 08:29] LABS: ANTI-NUCLEAR ANTIBODY TEST None Detected (None Detected)
[2017-07-04 08:33] LABS: HEPATITIS B CORE IGM Positive (Negative); HEPATITIS B SURFACE ANTIGEN Negative (Negative)
[2017-07-06 06:53] LABS: COPPER LEVEL 120 ug/dL (70-140)
[2017-07-07 06:48] LABS: METHYLMALONIC ACID 0.11 umol/L (0.00-0.40)
== END ==
LOC: LAB 09:29
PROVIDERS: ATTEND Nurse Practitioner Family
DX: I10 Essential (primary) hypertension (principal); E78.4 Other hyperlipidemia; E11.9 Type 2 diabetes mellitus without complications; E56.8 Deficiency of other vitamins; R35.8 Other polyuria; R17 Unspecified jaundice; R94.5 Abnormal results of liver function studies
CPT/HCPCS: 36415; 80048; 80061; 80074; 80076; 82043; 82103; 82390; 82525; 82607; 82728; 82746; 83036; 83540; 83550; 83918; 84153; 84466; 85025; 85610; 86256; 86308

== ENCOUNTER → 2017-07-02 | Outpatient (CLI) | payer OTHER ==
[2017-07-01 10:40] VITALS: BP 184/81
[2017-07-05 06:06] LABS: HBV DNA VIRAL LOG <1.3 log IU
== END ==
LOC: LAB 10:14
PROVIDERS: ATTEND Internal Medicine Gastroenterology
DX: R94.5 Abnormal results of liver function studies (principal)
CPT/HCPCS: 36415; 87517

== ENCOUNTER → 2017-07-08 | Outpatient (CLI) | payer OTHER ==
[2017-07-01 10:40] VITALS: BP 184/81
[2017-07-08 10:25] LABS: BASOPHILS % (AUTO) 0 % (0.2-1.0); EOSINOPHILS % (AUTO) 0.7 % (0.9-2.9); HEMATOCRIT 34.2 % (42.0-54.0); HEMOGLOBIN 11.9 g/dL (13.5-18.0); LYMPHOCYTES # (AUTO) 3.1 X10^3/uL (1.3-2.9); LYMPHOCYTES % (AUTO) 57.4 % (21.0-51.0); MEAN CORPUSCULAR HEMOGLOBIN 29.8 pg (27.0-34.0); MEAN CORPUSCULAR HGB CONC 34.7 g/dL (33.0-35.0); MEAN PLATELET VOLUME 8.3 fL (7.4-11.0); MONOCYTES # (AUTO) 1.1 x10^3/uL (0.3-0.8); MONOCYTES % (AUTO) 21.6 % (0.0-13.0); NEUTROPHILS # (AUTO) 1.1 x10^3/uL (2.2-4.8); NEUTROPHILS % (AUTO) 20.3 % (42.0-75.0); PLATELET COUNT 286 X10^3/uL (150.0-450.0); RED BLOOD COUNT 3.98 X10^6/uL (4.7-6.0); RED CELL DISTRIBUTION WIDTH 14.2 % (11.6-16.5); WHITE BLOOD COUNT 5.3 X10^3/uL (3.6-10.0)
[2017-07-08 10:34] LABS: ALBUMIN 2.4 g/dL (3.4-5.0); TOTAL PROTEIN 6.8 g/dL (6.4-8.2)
[2017-07-08 10:38] LABS: BILIRUBIN,DIRECT 14.26 mg/dL (0-0.2)
[2017-07-08 11:55] LABS: PLATELET MORPHOLOGY COMMENT NORMAL (NORMAL)
== END ==
LOC: LAB 09:48
PROVIDERS: ATTEND Internal Medicine Gastroenterology
DX: R94.5 Abnormal results of liver function studies (principal)
CPT/HCPCS: 36415; 80076; 85025

== ENCOUNTER → 2017-07-13 | Outpatient (CLI) | payer OTHER ==
[2017-07-01 10:40] VITALS: BP 184/81
[2017-07-13 10:16] LABS: HEMATOCRIT 34.7 % (42.0-54.0); HEMOGLOBIN 12.3 g/dL (13.5-18.0); MEAN CORPUSCULAR HEMOGLOBIN 30.5 pg (27.0-34.0); MEAN CORPUSCULAR HGB CONC 35.5 g/dL (33.0-35.0); MEAN CORPUSCULAR VOLUME 86.1 fL (80.0-100.0); MEAN PLATELET VOLUME 8.3 fL (7.4-11.0); PLATELET COUNT 285 X10^3/uL (150.0-450.0); RED BLOOD COUNT 4.03 X10^6/uL (4.7-6.0); RED CELL DISTRIBUTION WIDTH 14.9 % (11.6-16.5); WHITE BLOOD COUNT 5.5 X10^3/uL (3.6-10.0)
[2017-07-13 10:18] LABS: ALBUMIN 2.2 g/dL (3.4-5.0); TOTAL PROTEIN 6.7 g/dL (6.4-8.2)
[2017-07-13 10:45] LABS: PLATELET MORPHOLOGY COMMENT NORMAL (NORMAL)
[2017-07-13 11:57] LABS: BILIRUBIN,DIRECT 15.63 mg/dL (0-0.2)
== END ==
LOC: LAB 09:24
PROVIDERS: ATTEND Internal Medicine Gastroenterology
DX: R94.5 Abnormal results of liver function studies (principal)
CPT/HCPCS: 36415; 80076; 82140; 85025; 85610

== ENCOUNTER → 2017-07-20 | Outpatient (CLI) | payer OTHER ==
[2017-07-01 10:40] VITALS: BP 184/81
[2017-07-20 10:45] LABS: HEMATOCRIT 36.8 % (42.0-54.0); HEMOGLOBIN 12.8 g/dL (13.5-18.0); MEAN CORPUSCULAR HEMOGLOBIN 29.6 pg (27.0-34.0); MEAN CORPUSCULAR HGB CONC 34.8 g/dL (33.0-35.0); MEAN PLATELET VOLUME 8.2 fL (7.4-11.0); PLATELET COUNT 249 X10^3/uL (150.0-450.0); RED BLOOD COUNT 4.32 X10^6/uL (4.7-6.0); RED CELL DISTRIBUTION WIDTH 16.9 % (11.6-16.5); WHITE BLOOD COUNT 6.2 X10^3/uL (3.6-10.0)
[2017-07-20 10:57] LABS: ALBUMIN 2.2 g/dL (3.4-5.0); TOTAL PROTEIN 6.6 g/dL (6.4-8.2)
[2017-07-20 11:10] LABS: BILIRUBIN,DIRECT 15.94 mg/dL (0-0.2)
[2017-07-20 11:12] LABS: PLATELET MORPHOLOGY COMMENT NORMAL (NORMAL)
== END ==
LOC: LAB 10:09
PROVIDERS: ATTEND Internal Medicine Gastroenterology
DX: R17 Unspecified jaundice (principal); K71.0 Toxic liver disease with cholestasis
CPT/HCPCS: 36415; 80076; 85025; 85610

== ENCOUNTER 2017-07-22 12:26 | Inpatient (IN) | payer OTHER ==
[2017-07-22 13:29] LABS: HEMATOCRIT 35.9 % (42.0-54.0); HEMOGLOBIN 12.4 g/dL (13.5-18.0); MEAN CORPUSCULAR HEMOGLOBIN 29.4 pg (27.0-34.0); MEAN CORPUSCULAR HGB CONC 34.4 g/dL (33.0-35.0); MEAN CORPUSCULAR VOLUME 85.5 fL (80.0-100.0); MEAN PLATELET VOLUME 8.9 fL (7.4-11.0); PLATELET COUNT 224 X10^3/uL (150.0-450.0); RED CELL DISTRIBUTION WIDTH 17.7 % (11.6-16.5)
[2017-07-22 13:32] LABS: BLOOD UREA NITROGEN 13 mg/dL (7-18); CALCIUM 9.4 mg/dL (8.5-10.1); CARBON DIOXIDE 26.8 mmol/L (21-32); CHLORIDE 92 mmol/L (98-107); COR NA(FOR HYPERGLY) 136 mmol/L (136-145); CREATININE 0.94 mg/dL (0.70-1.30); SODIUM 130 mmol/L (136-145); eGFR BLACK RACES > 60 (>60); eGFR NON BLACK RACES > 60 (>60)
[2017-07-22 13:36] LABS: ALANINE AMINOTRANSFERASE 257 Units/L (12-78); ALBUMIN 2.1 g/dL (3.4-5.0); ALKALINE PHOSPHATASE 318 Units/L (46-116); AMYLASE 58 Units/L (25-115); COR CA(FOR HYPOALB) 10.9 mg/dL (8.5-10.1); LIPASE 1018 Units/L (73-393); TOTAL PROTEIN 6.3 g/dL (6.4-8.2)
--- NOTE | 2017-07-22 13:43 | DR.H&P ---
H&P - History & Physical for Day of: H&P Date: 07/22/17 - Chief Complaint Chief Complaint: SEVERE JAUNDICE, NAUSEA AND WEAKNESS - Allergies Allergies/Adverse Reactions: Allergies Allergy/AdvReac Type Severity Reaction Status Date / Time No Known Drug Allergies Allergy Verified 12/24/16 12:11 - History of Present Illness History of Present Illness: PT IS 72 WM DIRECT ADMIT FROM DR GAMBOA OFFICE AFTER PRESENTING WITH CO WEAKNESS, NAUSEA, SEVERE JAUNDICE. PT HAS BEEN UNDER THE CARE OF DR GUERRERO, PT LAST TOTAL BILI 20.20, PT STATES HE WAS TOLD "NEEDED A LIVER TRANSPLANT" PT STATES JAUNDICE WAS SUDDEN ONSET. PT'S SPOUSE STATES HE HAD LABS ONE DAY AGO AND CT ABD/PELVIS ON 07/01. PT ADMITTED TO ICU, CARIDAC MONITORING, ADMISSION LABS. MRCP, REPEAT CT ABD/PELVIS. BP AND BLOOD SUGAR MONITORING, NPO - Past Medical History Past Medical History: Angina, Arthritis, CHF, Coronary Artery Disease, CVA, Diabetes, Dyslipidemia, GERD, Hypertension, [place] - Past Surgical History Surgical History: Angioplasty/Stents, CABG/Valve Surgery, Cholecystectomy Additional Surgical History: Patient has pacemaker. - Family History Family Medical History: Diabetes Mellitus, Cancer, Hypertension - Social History Does patient currently use any type of tobacco product: No Have you used tobacco products in the last 12 months: No Type of Tobacco Use: None Does any household member use tobacco: No Alcohol Use: None Drug Use: None - Review of Systems Constitutional: Weakness Eyes: No Symptoms Reported ENT: No Symptoms Reported Respiratory: Shortness of Breath Cardiovascular: No Symptoms Reported Gastrointestinal: Nausea Genitourinary: No Symptoms Reported Musculoskeletal: No Symptoms Reported Skin: Jaundice Neurological: Weakness - Physical Exam Vital Signs: Blood Pressure [Left Arm] 131/63 Blood Pressure [Right Arm] 148/72 Blood Pressure 184/81 Oriented: Normal Eyes: Other (YELLOW SCLERA) Ear: Normal Nose: Normal Throat: Normal Respiratory: RLL Diminished, LLL Diminished Cardiovascular: Normal : Normal Auscultation: Bowel Sounds: Normal Palpation: Liver Enlarged Tenderness: RUQ, Epigastric Skin: Normal Musculoskeletal: Back:Lumbar Psychiatric: Anxiety Speech Pattern: Clear, Appropriate - Assessment/Plan (1) Liver failure, acute Status: Acute Plan: ADMIT, ADMISSION LABS CBC CMP UA AMYLASE LIPASE. MRCP, CXR ON ADMISSION. EKG, CARDIAC MONITORING. BP MONITORING. CT ABD PELVIS WITH CONTRAST (2) Jaundice of recent onset Status: Acute (3) Diabetes mellitus Status: Chronic (4) GERD (gastroesophageal reflux disease) Status: Chronic (5) Hypertension Qualifiers: Hypertension type: essential hypertension Qualified Code(s): I10 - Essential (primary) hypertension Status: Chronic
[2017-07-22 13:53] LABS: WHITE BLOOD COUNT 6.3 X10^3/uL (3.6-10.0)
[2017-07-22 13:55] VITALS: BMI 28.7
[2017-07-22 13:56] LABS: ASPARTATE AMINO TRANSFERASE 197 Units/L (15-37)
[2017-07-22] MEDS ORDERED: K-LYTE EFFERVESCENT PO NR (14:00)
--- NOTE | 2017-07-22 14:12 | RAD ---
HISTORY: CHF, COPD Study: Single-view of the chest Comparison: December 27, 2016 Findings: The trachea is midline. The cardiac silhouette is at the upper limits of normal. The lungs are ana luisa r without focal infiltrate or effusion. A left-sided cardiac pacemaker is demonstrated. Postoperat zunilda changes of midline sternotomy is noted. IMPRESSION: 1. No acute cardiopulmonary disease. Reported By:
[2017-07-22 14:17] LABS: PLATELET MORPHOLOGY COMMENT NORMAL (NORMAL)
[2017-07-22 14:18] LABS: ANISOCYTOSIS SLIGHT; HYPOCHROMASIA SLIGHT; MAGNESIUM 1.8 mg/dL (1.7-2.9)
[2017-07-22] MEDS ORDERED: NS 100 ML IV + SPIKE MINIBAG* 100 ML IV ONE ×2 (14:42→21:14)
[2017-07-22] MEDS: ZOSYN VIAL 4.5 GM IV SCH ×2 (15:04→21:54)
[2017-07-22] MEDS: NS + KCL 40 MEQ/L 1,000 ML IV SCH (15:04)
[2017-07-22] MEDS ORDERED: HumuLIN R SUBCUT PRN (17:36)
--- NOTE | 2017-07-22 18:01 | CT ---
HISTORY: Hepatomegaly, elevated LFTs, jaundice Study: CT abdomen and pelvis with contrast Comparison: July 01, 1999 Technique: Multiple axial images of the abdomen and pelvis were obtained from the lung bases to the pubic symphy sis after/ without/ both prior to and after the administration of IV contrast. Findings: Atelectasis is seen within the visualized lungs. Images again demonstrate intra and extra hepatic jorden junaid dilatation which is more prominent than on previous exam. Surgical clips are noted within the gal lbladder fossa. The region of the pancreatic head is somewhat heterogeneous in appearance with adjace nt mesenteric fat stranding. These findings may relate to pancreatitis or duodenitis however they les ion within the pancreas cannot entirely be excluded. Recommend clinical correlation and continued fol low-up is indicated for further evaluation. Follow-up MRI of the abdomen/MRCP may be helpful in furth er characterizing these findings The spleen, adrenals, kidneys are unremarkable in appearance. No CT evidence of hydronephrosis is identified. Stool and gas are seen throughout the colon to the level of the rectum. The urinary bladder is somewhat distended. Degenerative changes of the spine are noted. IMPRESSION: Edematous appearance of the pancreatic head with associated peripancreatic inflammatory stranding and associated intra and extra hepatic ductal dilatation as discussed above. Recommend clinical correlat ion and continued follow-up is indicated for further evaluation. Cholecystectomy. Other findings as noted above. Reported By:
[2017-07-22 18:45] LABS: BILIRUBIN,URINE 3+ (NEGATIVE); BLOOD/HEMOGLOBIN,URINE NEGATIVE (NEGATIVE); GLUCOSE, URINE 4+ (NEGATIVE); KETONES,URINE NEGATIVE (NEGATIVE); LEUKOCYTE ESTERASE ,URINE 1+ (NEGATIVE); NITRITES,URINE NEGATIVE (NEGATIVE); PH,URINE 6.5 (5.0 - 8.0); PROTEIN,URINE 2+ (NEGATIVE); UROBILINOGEN,URINE 2+ (NORMAL)
[2017-07-22 18:49] LABS: APPEARANCE,URINE HAZY (CLEAR); BACTERIA,URINE TRACE /HPF (NEGATIVE); COLOR,URINE YELLOW (YELLOW); RBC,URINE 0-2 /HPF (NONE SEEN); SQUAMOUS EPITHELIAL CELL,UR RARE /HPF (NEGATIVE)
[2017-07-22] MEDS ORDERED: ZOFRAN INJ 4 MG VIAL IVP PRN (19:46)
[2017-07-22] MEDS ORDERED: SNACK - Diabetic Appropriate PO SCH (20:00)
[2017-07-23] MEDS ORDERED: NS 100 ML IV + SPIKE MINIBAG* 100 ML IV ONE ×2 (05:11→14:19)
[2017-07-23] MEDS: NS + KCL 40 MEQ/L 1,000 ML IV SCH (05:50)
[2017-07-23] MEDS: ZOSYN VIAL 4.5 GM IV SCH ×2 (05:50→14:30)
[2017-07-23 06:53] LABS: HEMATOCRIT 33.4 % (42.0-54.0); HEMOGLOBIN 11.6 g/dL (13.5-18.0); MEAN CORPUSCULAR HEMOGLOBIN 29.7 pg (27.0-34.0); MEAN CORPUSCULAR HGB CONC 34.7 g/dL (33.0-35.0); MEAN CORPUSCULAR VOLUME 85.7 fL (80.0-100.0); MEAN PLATELET VOLUME 8.5 fL (7.4-11.0); PLATELET COUNT 191 X10^3/uL (150.0-450.0); RED CELL DISTRIBUTION WIDTH 17.9 % (11.6-16.5); WHITE BLOOD COUNT 5.6 X10^3/uL (3.6-10.0)
[2017-07-23 07:19] LABS: PLATELET MORPHOLOGY COMMENT NORMAL (NORMAL)
[2017-07-23 07:39] LABS: ALANINE AMINOTRANSFERASE 218 Units/L (12-78); ALBUMIN 1.8 g/dL (3.4-5.0); ALKALINE PHOSPHATASE 264 Units/L (46-116); BLOOD UREA NITROGEN 9 mg/dL (7-18); CARBON DIOXIDE 22.4 mmol/L (21-32); CHLORIDE 99 mmol/L (98-107); COR CA(FOR HYPOALB) 10.8 mg/dL (8.5-10.1); COR NA(FOR HYPERGLY) 135 mmol/L (136-145); CREATININE 0.54 mg/dL (0.70-1.30); SODIUM 134 mmol/L (136-145); TOTAL PROTEIN 5.5 g/dL (6.4-8.2); eGFR BLACK RACES > 60 (>60); eGFR NON BLACK RACES > 60 (>60)
[2017-07-23 07:53] LABS: ASPARTATE AMINO TRANSFERASE 181 Units/L (15-37)
[2017-07-23] MEDS ORDERED: K-RIDER 10 MEQ/NS 100 ML 10 MEQ/100 ML BAG IV PRN (08:17)
[2017-07-23] MEDS ORDERED: POTASSIUM CHL 60 MEQ/NS 0.45% 500 ML IV PRN (08:17)
[2017-07-23] MEDS ORDERED: K-LYTE EFFERVESCENT PO PRN (08:17)
[2017-07-23] MEDS ORDERED: MAG-OX TAB PO PRN (08:17)
[2017-07-23] MEDS ORDERED: POTASSIUM CHLORIDE LIQ 20 MEQ UDC PO PRN (08:17)
[2017-07-23] MEDS ORDERED: MAGNESIUM SULFATE 1 GM/100 mL PREMIX 1 GM/100 ML BAG IV PRN (08:17)
[2017-07-23] MEDS ORDERED: POTASSIUM CHL 40 MEQ/NS 0.45% 500 ML IV PRN (08:17)
[2017-07-23 09:45] LABS: AMYLASE 58 Units/L (25-115); LIPASE 776 Units/L (73-393)
[2017-07-23 18:16] VITALS: BP 170/75
--- NOTE | 2017-07-31 15:46 | PCM.DCPLAN ---
Discharge Summary - Admission Date Date of Admission: 07/22/17 - Discharge Date Discharge Date: 07/23/17 - Admission Diagnoses (1) Jaundice of recent onset Status: Acute (2) Liver failure, acute Status: Acute (3) Diabetes mellitus Status: Chronic (4) Hypertension Status: Chronic - Discharge Diagnoses Discharge Diagnosis: SAME ADMISSION DIAGNOSIS - Discharge Medications Discharge Medications: Insulin Lispro (Humalog) [HumaLOG INSULIN 10 ML VIAL *] 07/22/17 [History] - Hospital Course Vital Signs: Temperature 98.1 F Pulse Rate [Left Brachial] 60 Respiratory Rate 14 Blood Pressure [Left Arm] 170/75 Blood Pressure [Right Arm] 148/72 Blood Pressure 184/81 O2 Sat by Pulse Oximetry 99 Latest Lab Results: Laboratory Last Values WBC 5.6 X10^3/uL (3.6-10.0) 07/23/17 06:08 RBC 3.90 X10^6/uL (4.7-6.0) L 07/23/17 06:08 Hgb 11.6 g/dL (13.5-18.0) L 07/23/17 06:08 Hct 33.4 % (42.0-54.0) L 07/23/17 06:08 MCV 85.7 fL (80.0-100.0) 07/23/17 06:08 MCH 29.7 pg (27.0-34.0) 07/23/17 06:08 MCHC 34.7 g/dL (33.0-35.0) 07/23/17 06:08 RDW 17.9 % (11.6-16.5) H 07/23/17 06:08 Plt Count 191 X10^3/uL (150.0-450.0) 07/23/17 06:08 Plt Count Comment Adequate (ADEQUATE) 07/23/17 06:08 MPV 8.5 fL (7.4-11.0) 07/23/17 06:08 Absolute Nucleated RBC 0.0 /100WBC 07/23/17 06:08 Total Counted 100 07/23/17 06:08 Neutrophils % (Manual) 76 % (39-76) 07/23/17 06:08 Lymphocytes % (Manual) 12 % (13-43) L 07/23/17 06:08 Monocytes % (Manual) 10 % (4-9) H 07/23/17 06:08 Eosinophils % (Manual) 2 % (0-6) 07/23/17 06:08 Plt Morphology Comment Normal (NORMAL) 07/23/17 06:08 RBC Morphology Normal (NORMAL) 07/23/17 06:08 Hypochromasia Slight A 07/22/17 13:11 Anisocytosis Slight A 07/22/17 13:11 Macrocytosis Slight A 07/22/17 13:11 Sodium 134 mmol/L (136-145) L 07/23/17 06:08 Corrected Sodium 135 mmol/L (136-145) L 07/23/17 06:08 Potassium 3.8 mmol/L (3.5-5.1) 07/23/17 17:06 Chloride 99 mmol/L (98-107) 07/23/17 06:08 Carbon Dioxide 22.4 mmol/L (21-32) 07/23/17 06:08 BUN 9 mg/dL (7-18) 07/23/17 06:08 Creatinine 0.54 mg/dL (0.70-1.30) L 07/23/17 06:08 Est GFR (MDRD) Af Amer > 60 (>60) 07/23/17 06:08 Est GFR (MDRD) Non-Af > 60 (>60) 07/23/17 06:08 Glucose 147 mg/dL (65-99) H 07/23/17 06:08 POC Glucose (mg/dL) 180 mg/dL (65-99) H 07/23/17 16:24 Calcium 9.0 mg/dL (8.5-10.1) 07/23/17 06:08 Corrected Calcium 10.8 mg/dL (8.5-10.1) H 07/23/17 06:08 Magnesium 1.8 mg/dL (1.7-2.9) 07/23/17 06:08 Total Bilirubin 18.60 mg/dL (0.2-1.0) H 07/23/17 06:08 AST 181 Units/L (15-37) H 07/23/17 06:08 ALT 218 Units/L (12-78) H 07/23/17 06:08 Alkaline Phosphatase 264 Units/L (46-116) H 07/23/17 06:08 Total Protein 5.5 g/dL (6.4-8.2) L 07/23/17 06:08 Albumin 1.8 g/dL (3.4-5.0) L 07/23/17 06:08 Globulin 3.7 g/dL (2.5-4.5) 07/23/17 06:08 Albumin/Globulin Ratio 0.5 Ratio (1.1-2.1) L 07/23/17 06:08 Amylase 58 Units/L (25-115) 07/23/17 06:08 Lipase 776 Units/L (73-393) H 07/23/17 06:08 Specimen Type Clean catch urine 07/22/17 18:34 Urine Color Yellow (YELLOW) 07/22/17 18:34 Urine Appearance Hazy (CLEAR) 07/22/17 18:34 Urine pH 6.5 (5.0 - 8.0) 07/22/17 18:34 Ur Specific [place] 1.010 (1.000-1.030) 07/22/17 18:34 Urine Protein 2+ (NEGATIVE) 07/22/17 18:34 Urine Glucose (UA) 4+ (NEGATIVE) 07/22/17 18:34 Urine Ketones Negative (NEGATIVE) 07/22/17 18:34 Urine Occult Blood Negative (NEGATIVE) 07/22/17 18:34 Urine Nitrite Negative (NEGATIVE) 07/22/17 18:34 Urine Bilirubin 3+ (NEGATIVE) 07/22/17 18:34 Urine Urobilinogen 2+ (NORMAL) 07/22/17 18:34 Ur Leukocyte Esterase 1+ (NEGATIVE) 07/22/17 18:34 Urine RBC 0-2 /HPF (NONE SEEN) 07/22/17 18:34 Urine WBC 0-2 /HPF (NONE SEEN) 07/22/17 18:34 Ur Squamous Epith Cells Rare /HPF (NEGATIVE) 07/22/17 18:34 Urine Bacteria Trace /HPF (NEGATIVE) 07/22/17 18:34 Ur Culture Indicated? No/not indicated 07/22/17 18:34 Hospital Course: PT IS 72 WM DIRECT ADMIT FROM DR GAMBOA OFFICE AFTER PRESENTING WITH CO WEAKNESS, NAUSEA, SEVERE JAUNDICE. PT HAS BEEN UNDER THE CARE OF DR GUERRERO, PT LAST TOTAL BILI 20.20, PT STATES HE WAS TOLD "NEEDED A LIVER TRANSPLANT" PT STATES JAUNDICE WAS SUDDEN ONSET. PT'S SPOUSE STATES HE HAD LABS ONE DAY AGO AND CT ABD/PELVIS ON 07/01. PT ADMITTED TO ICU, CARIDAC MONITORING. CT ABD/ PELVIS REVEALED PANCREATITIS WITH INTRA AND EXTRA DUCTAL CHANGES. THE PATIENT WAS TRANSFERRED TO [facility] FOR FURTHER CARE. . - Discharge Plan Disposition: [facility] Condition: Stable - Follow ups/Referrals Follow ups/Referrals: NEIL REGAN [Primary Care Provider] - - Instructions
== END 2017-07-23 17:37 | disposition short-term general hospital (02) | DRG 443 ==
LOC: ICU 12:26 → OBSVTOIN 12:26
PROVIDERS: ADMIT Internal Medicine; ATTEND Internal Medicine
DX: K72.00 Acute and subacute hepatic failure without coma (principal); R11.2 Nausea with vomiting, unspecified; R53.1 Weakness; I25.10 Atherosclerotic heart disease of native coronary artery without angina pectoris; E11.65 Type 2 diabetes mellitus with hyperglycemia; E78.2 Mixed hyperlipidemia; K21.9 Gastro-esophageal reflux disease without esophagitis; I10 Essential (primary) hypertension
CPT/HCPCS: 36415; 71045; 74177; 80053; 81001; 82150; 83690; 83735; 84132; 85025; 93005; 93010; A4222; J1815; J2543

== ENCOUNTER 2017-08-15 11:28 | Inpatient (IN) | payer OTHER ==
[2017-08-15 11:33] VITALS: BMI 29.2
--- NOTE | 2017-08-15 11:42 | DR.URIAD ---
HPI - Time Seen Time seen: 11:40 - PCP Primary Care Physician: NEIL - Complaint Chief Complaint Doctors Comments: Patient presented with spouse with complaint of cough and fever on last night. He admits to mid-sternal chest pain, non radiating. Denies vomiting or diarrhea. Two weeks ago had stent placed for occluted for common bile duct occlustionl. Chief Complaint:: PT FAMILY C/O CCC FOR A FEW DAYS AND THAT THIS AM HE STARTED HAVING , FEVER, CHILLS, AND RATLING". Self Treatment fo Chief Complaint: PTS FAMILY WANT'S TO MAKE SURE IT'S NOT PNUEMONIA. ,, COUGH NOTED AT THIS TIME ,, ,LUNGS CLEAR UPON AUSCULTATION. - Source History Provided: Patient, Family Member - Mode of Arrival Mode of Arrival: Wheelchair - Timing Onset of Chief Complaint: 08/06/17 - Quality Shortness of Breath: none PMH - PMH Past Medical History: Yes Past Medical History: Angina, Arthritis, CHF, Coronary Artery Disease, CVA, Diabetes, Dyslipidemia, GERD, Hypertension, [place] Past Surgical History: Yes Surgical History: Angioplasty/Stents, CABG/Valve Surgery, Cholecystectomy Past Surgical History Comment: BYPASS, PACEMAKER - Family History History of Family Medical Conditions: Yes Family Medical History: Diabetes Mellitus, Cancer, Hypertension - Social History Does patient currently use any type of tobacco product: No Have you used tobacco products in the last 12 months: No Type of Tobacco Use: None Does any household member use tobacco: No Alcohol Use: Rarely Do you use any recreational Drugs:: No Lives With: Family Lives Where: Home - infectious screening In the last 2 months have you had wt loss of >10#?: NO Have you had fever, night sweats or hemotysis?: No Have you traveled outside the country in the last 6 months?: No Isolation: Standard ROS - Review of Systems Eyes: No Symptoms Reported ENTM: No Symptoms Reported Respiratoy: No Symptoms Reported Cardiovascular: No Symptoms Reported Gastrointestinal/Abdominal: No Symptoms Reported Genitourinary: No Symptoms Reported Neurological: No Symptoms Reported Musculoskeletal: No Symptoms Reported Integumentary: No Symptoms Reported Hematologic/Lymphatic: No Symptoms Reported Endocrine: No Symptoms Reported PE - Vital Signs Vitals: Temperature 99.6 F Pulse Rate 101 Respiratory Rate 20 Blood Pressure [Left Arm] 112/59 Blood Pressure [Right Arm] 148/72 Blood Pressure 94/53 O2 Sat by Pulse Oximetry 95 - General Limitations: No Limitations General Appearance: Alert, In No Apparent Distress - Head Head Exam: Normal Inspection, Atraumatic - Eyes Eye exam: Normal Appearance, PERRL, EOMI - ENT ENT Exam: Normal Exam External Ear Exam: Normal External Inspection TM/Canal Exam: Bilateral Normal Nose Exam: Normal Nose Exam Nasal Speculum Exam: Bilateral Normal Throat Exam: Normal Inspection - Neck Neck Exam: Normal Inspection, Full ROM - Chest Chest Inspection: Normal Inspection - Respiratory Respiratory Exam: Normal Lung Sounds Bilat Respiratory Exam: Bilateral Clear to Auscultation - Cardiovascular Cardiovascular Exam: Regular Rate, Normal Rhythm - Abdominal Exam Abdominal Exam: Normal Inspection, Normal Bowel Sounds Abdominal Tenderness: Epigastrium. negative: RUQ, RLQ, LUQ, LLQ, Suprapubic, Diffuse, Mild, Moderate, Severe, Other - Extremeties Extremities Exam: Normal Inspection, Full ROM - Back Back Exam: Normal Inspection, Full ROM - Neurologic Neurological Exam: Alert, Oriented X3, CN II-XII Intact Course - Consultation Called: 14:15 (Dr Nugent agreed to admit for further treatment) - Education/Counseling Educated On: Treatment, Diagnosis, Prognosis, Needs for Follow Up ROR - Labs Reviewed Laboratory Results Reviewed?: Yes (Lactic Acid 4.9) Result Diagrams: 08/15/17 12:00 08/15/17 12:00 Laboratory: WBC 9.4 X10^3/uL (3.6-10.0) 08/15/17 12:00 RBC 4.09 X10^6/uL (4.7-6.0) L 08/15/17 12:00 Hgb 12.6 g/dL (13.5-18.0) L 08/15/17 12:00 Hct 35.7 % (42.0-54.0) L 08/15/17 12:00 MCV 87.2 fL (80.0-100.0) 08/15/17 12:00 MCH 30.8 pg (27.0-34.0) 08/15/17 12:00 MCHC 35.3 g/dL (33.0-35.0) H 08/15/17 12:00 RDW 15.7 % (11.6-16.5) 08/15/17 12:00 Plt Count 240 X10^3/uL (150.0-450.0) 08/15/17 12:00 MPV 8.0 fL (7.4-11.0) 08/15/17 12:00 Neut % (Auto) 71.6 % (42.0-75.0) 08/15/17 12:00 Lymph % (Auto) 19.9 % (21.0-51.0) L 08/15/17 12:00 [place] % (Auto) 7.6 % (0.0-13.0) 08/15/17 12:00 Eos % (Auto) 0.1 % (0.9-2.9) L 08/15/17 12:00 Baso % (Auto) 0.8 % (0.2-1.0) 08/15/17 12:00 Neut # (Auto) 6.7 x10^3/uL (2.2-4.8) H 08/15/17 12:00 Lymph # (Auto) 1.9 X10^3/uL (1.3-2.9) 08/15/17 12:00 [place] # (Auto) 0.7 x10^3/uL (0.3-0.8) 08/15/17 12:00 Eos # (Auto) 0.0 x10^3/uL (0.0-0.2) 08/15/17 12:00 Baso # (Auto) 0.1 X10^3/uL (0.0-0.1) 08/15/17 12:00 Absolute Nucleated RBC 0.0 /100WBC 08/15/17 12:00 INR Target Range - 08/15/17 12:00 INR 1.11 (0.8-1.3) 08/15/17 12:00 APTT 31.7 SECONDS (22.9-36.5) 08/15/17 12:00 PTT Comment - 08/15/17 12:00 Sodium 142 mmol/L (136-145) 08/15/17 12:00 Corrected Sodium TNP 08/15/17 12:00 Potassium 2.4 mmol/L (3.5-5.1) L* 08/15/17 12:00 Chloride 102 mmol/L (98-107) 08/15/17 12:00 Carbon Dioxide 25.7 mmol/L (21-32) 08/15/17 12:00 BUN 9 mg/dL (7-18) 08/15/17 12:00 Creatinine 1.01 mg/dL (0.70-1.30) 08/15/17 12:00 Est GFR (MDRD) Af Amer > 60 (>60) 08/15/17 12:00 Est GFR (MDRD) Non-Af > 60 (>60) 08/15/17 12:00 Glucose 70 mg/dL (65-99) 08/15/17 12:00 Lactic Acid 4.9 mmol/L (0.4-2.0) H 08/15/17 13:20 Calcium 8.4 mg/dL (8.5-10.1) L 08/15/17 12:00 Corrected Calcium 9.8 mg/dL (8.5-10.1) 08/15/17 12:00 Magnesium 1.2 mg/dL (1.7-2.9) L 08/15/17 12:00 Total Bilirubin 3.80 mg/dL (0.2-1.0) H 08/15/17 12:00 AST 43 Units/L (15-37) H 08/15/17 12:00 ALT 62 Units/L (12-78) 08/15/17 12:00 Alkaline Phosphatase 129 Units/L (46-116) H 08/15/17 12:00 Creatine Kinase 27 Units/L (39-308) L 08/15/17 12:00 CK-MB (CK-2) < 1.0 ng/mL (0-4.0) 08/15/17 12:00 CK/CKMB % Calc 3.7 % (<4) 08/15/17 12:00 Troponin I < 0.02 ng/mL (0-1.5) 08/15/17 12:00 Total Protein 6.5 g/dL (6.4-8.2) 08/15/17 12:00 Albumin 2.3 g/dL (3.4-5.0) L 08/15/17 12:00 Globulin 4.2 g/dL (2.5-4.5) 08/15/17 12:00 Albumin/Globulin Ratio 0.5 Ratio (1.1-2.1) L 08/15/17 12:00 H. pylori IgG Antibody Positive (NEGATIVE) A 08/15/17 12:00 - XRAY XRAY Interpreted by: Radiologist (Chest: The cardiac silhouette is unremarkable. Increased perihilar markings and bronchial thickening are noted. Patchy left perihilar and left basilar infiltrate are noted The aortic know is partially calcified. A left sided cardiac pacemaker is demonstrated. Postoperative changes of midline sternotomy are noted. Surgical clips project over the right upper quadrant abdomen. Impression: Bronchitis/viral with superimposed left perihilar and left basilar infiltrate.) - Diagnosis Discharge Problem: Pneumonia left lower lobe, Helicobacter pylori gastritis, Hypokalemia, Hypomagnesemia - Discharge Plan Condition: Stable - Follow ups/Referrals Follow ups/Referrals: NEIL REGAN [Primary Care Provider] - 3 days - Instructions
[2017-08-15] MEDS ORDERED: LR 1000 ML IV 1,000 ML IV ONE ×2 (11:44→11:47)
[2017-08-15 12:14] LABS: BASOPHILS # (AUTO) 0.1 X10^3/uL (0.0-0.1); BASOPHILS % (AUTO) 0.8 % (0.2-1.0); EOSINOPHILS % (AUTO) 0.1 % (0.9-2.9); HEMATOCRIT 35.7 % (42.0-54.0); HEMOGLOBIN 12.6 g/dL (13.5-18.0); LYMPHOCYTES # (AUTO) 1.9 X10^3/uL (1.3-2.9); LYMPHOCYTES % (AUTO) 19.9 % (21.0-51.0); MEAN CORPUSCULAR HEMOGLOBIN 30.8 pg (27.0-34.0); MEAN CORPUSCULAR HGB CONC 35.3 g/dL (33.0-35.0); MEAN CORPUSCULAR VOLUME 87.2 fL (80.0-100.0); MONOCYTES # (AUTO) 0.7 x10^3/uL (0.3-0.8); MONOCYTES % (AUTO) 7.6 % (0.0-13.0); NEUTROPHILS # (AUTO) 6.7 x10^3/uL (2.2-4.8); NEUTROPHILS % (AUTO) 71.6 % (42.0-75.0); PLATELET COUNT 240 X10^3/uL (150.0-450.0); RED BLOOD COUNT 4.09 X10^6/uL (4.7-6.0); RED CELL DISTRIBUTION WIDTH 15.7 % (11.6-16.5); WHITE BLOOD COUNT 9.4 X10^3/uL (3.6-10.0)
[2017-08-15] MEDS ORDERED: K-LYTE EFFERVESCENT PO ONE (12:25)
[2017-08-15 12:27] LABS: ALANINE AMINOTRANSFERASE 62 Units/L (12-78); ALBUMIN 2.3 g/dL (3.4-5.0); ALKALINE PHOSPHATASE 129 Units/L (46-116); ASPARTATE AMINO TRANSFERASE 43 Units/L (15-37); BLOOD UREA NITROGEN 9 mg/dL (7-18); CALCIUM 8.4 mg/dL (8.5-10.1); CARBON DIOXIDE 25.7 mmol/L (21-32); CHLORIDE 102 mmol/L (98-107); CKMB % 3.7 % (<4); COR CA(FOR HYPOALB) 9.8 mg/dL (8.5-10.1); CREATINE KINASE 27 Units/L (39-308); CREATINE KINASE MB < 1.0 ng/mL (0-4.0); CREATININE 1.01 mg/dL (0.70-1.30); MAGNESIUM 1.2 mg/dL (1.7-2.9); SODIUM 142 mmol/L (136-145); TOTAL PROTEIN 6.5 g/dL (6.4-8.2); TROPONIN I < 0.02 ng/mL (0-1.5); eGFR BLACK RACES > 60 (>60); eGFR NON BLACK RACES > 60 (>60)
[2017-08-15] MEDS ORDERED: K-LYTE EFFERVESCENT ONE (12:27)
--- NOTE | 2017-08-15 12:57 | RAD ---
HISTORY: Cough, cold, congestion, fever, chills Study: Two views of the chest Comparison: July 22, 2017 Findings: The trachea is midline. The cardiac silhouette is unremarkable. Increased perihilar markings and br onchial thickening are noted. Patchy left perihilar and left basilar infiltrate are noted. The aor tic knob is partially calcified. A left-sided cardiac pacemaker is demonstrated. Postoperative change s of midline sternotomy are noted. Surgical clips project over the right upper quadrant the abdomen IMPRESSION: 1. Radiographic findings of bronchitis/viral illness with superimposed left perihilar and left basila r infiltrate. Reported By:
[2017-08-15] MEDS ORDERED: DUONEB 0.5 MG/3 MG NEB ONE ×2 (13:23→16:15)
[2017-08-15] MEDS ORDERED: SALINE 3% 15 ML NEB TX ONE (13:36)
[2017-08-15] MEDS ORDERED: SALINE 3% 15 ML NEB TX NEB ONE ×2 (13:40→16:30)
[2017-08-15] MEDS ORDERED: NS 1000 ML 1,000 ML ONE (13:53)
[2017-08-15] MEDS: LEVAQUIN PREMIX IV 750 MG 750 MG/150 ML BAG IV SCH (14:16)
[2017-08-15] MEDS ORDERED: HumaLOG SC PRN ×2 (14:30→16:41)
[2017-08-15] MEDS ORDERED: ANTIVERT TAB 25 MG PO PRN (14:30)
[2017-08-15] MEDS ORDERED: NS 1000 ML 1,000 ML IV SCH (15:00)
[2017-08-15] MEDS ORDERED: NS 1/2 1000 ML IV 1,000 ML IV ONE ×2 (15:37→20:53)
[2017-08-15] MEDS: NS 1/2 1000 ML IV 1,000 ML IV SCH (16:31)
[2017-08-15] MEDS ORDERED: K-RIDER 10 MEQ/NS 100 ML 10 MEQ/100 ML BAG IV PRN (16:32)
[2017-08-15] MEDS ORDERED: POTASSIUM CHL 40 MEQ/NS 0.45% 500 ML IV PRN (16:32)
[2017-08-15] MEDS ORDERED: K-LYTE EFFERVESCENT PO PRN (16:32)
[2017-08-15] MEDS ORDERED: POTASSIUM CHLORIDE LIQ 20 MEQ UDC PO PRN (16:32)
[2017-08-15] MEDS: ROBITUSSIN DM PO SCH ×2 (16:39→21:10)
[2017-08-15] MEDS ORDERED: GLUCOPHAGE ONE (16:46)
[2017-08-15] MEDS: MAGNESIUM SULFATE 1 GM/100 mL PREMIX 1 GM/100 ML BAG IV PRN ×4 (16:53→21:09)
[2017-08-15] MEDS: GLUCOPHAGE PO SCH (16:54)
[2017-08-15] MEDS: POTASSIUM CHL 60 MEQ/NS 0.45% 500 ML IV PRN (18:15)
[2017-08-15] MEDS ORDERED: DUONEB 0.5 MG/3 MG NEB SCH (21:00)
[2017-08-15] MEDS ORDERED: LEVEMIR SC SCH (21:00)
[2017-08-15] MEDS ORDERED: METFORMIN HCL 1000 MG PO SCH (21:00)
[2017-08-15] MEDS: RANEXA PO SCH (21:10)
[2017-08-15] MEDS: ISOSORBIDE DINITRATE PO SCH (21:10)
[2017-08-15] MEDS: PROTONIX TAB 40 MG PO SCH (21:10)
[2017-08-15] MEDS: COREG TAB 3.125 MG PO SCH (21:11)
[2017-08-15] MEDS: LUBIPROSTONE PO SCH (21:21)
[2017-08-15] MEDS: DUONEB 0.5 MG/3 MG NEB SCH (21:31)
[2017-08-15] MEDS ORDERED: BUTT CREAM (COMPOUND) TOP PRN (22:18)
[2017-08-16] MEDS: DUONEB 0.5 MG/3 MG NEB SCH ×6 (00:50→22:03)
[2017-08-16] MEDS ORDERED: D50W ABBOJECT SYR ONE (05:23)
[2017-08-16] MEDS ORDERED: D50W ABBOJECT SYR IV ONE (05:29)
[2017-08-16] MEDS: NS 1/2 1000 ML IV 1,000 ML IV SCH ×2 (05:56→22:04)
[2017-08-16 05:57] LABS: BASOPHILS # (AUTO) 0.1 X10^3/uL (0.0-0.1); BASOPHILS % (AUTO) 0.8 % (0.2-1.0); EOSINOPHILS # (AUTO) 0.1 x10^3/uL (0.0-0.2); EOSINOPHILS % (AUTO) 1.1 % (0.9-2.9); LYMPHOCYTES # (AUTO) 2.4 X10^3/uL (1.3-2.9); LYMPHOCYTES % (AUTO) 32.8 % (21.0-51.0); MEAN CORPUSCULAR HEMOGLOBIN 31.5 pg (27.0-34.0); MEAN CORPUSCULAR VOLUME 87.3 fL (80.0-100.0); MEAN PLATELET VOLUME 8.1 fL (7.4-11.0); MONOCYTES # (AUTO) 0.7 x10^3/uL (0.3-0.8); MONOCYTES % (AUTO) 9.1 % (0.0-13.0); NEUTROPHILS % (AUTO) 56.2 % (42.0-75.0); PLATELET COUNT 163 X10^3/uL (150.0-450.0); RED BLOOD COUNT 2.98 X10^6/uL (4.7-6.0); RED CELL DISTRIBUTION WIDTH 15.6 % (11.6-16.5); WHITE BLOOD COUNT 7.2 X10^3/uL (3.6-10.0)
[2017-08-16] MEDS: GLUCOPHAGE PO SCH ×2 (06:08→16:42)
[2017-08-16 06:10] LABS: ALANINE AMINOTRANSFERASE 46 Units/L (12-78); ALBUMIN 1.7 g/dL (3.4-5.0); ALKALINE PHOSPHATASE 84 Units/L (46-116); ASPARTATE AMINO TRANSFERASE 33 Units/L (15-37); BLOOD UREA NITROGEN 7 mg/dL (7-18); CARBON DIOXIDE 26.3 mmol/L (21-32); CHLORIDE 106 mmol/L (98-107); COR CA(FOR HYPOALB) 9.8 mg/dL (8.5-10.1); CREATININE 0.71 mg/dL (0.70-1.30); MAGNESIUM 1.9 mg/dL (1.7-2.9); SODIUM 142 mmol/L (136-145); TOTAL PROTEIN 5.3 g/dL (6.4-8.2); eGFR BLACK RACES > 60 (>60); eGFR NON BLACK RACES > 60 (>60)
[2017-08-16 06:18] LABS: HEMOGLOBIN 9.4 g/dL (13.5-18.0)
[2017-08-16] MEDS: POTASSIUM CHL 60 MEQ/NS 0.45% 500 ML IV PRN (06:30)
--- NOTE | 2017-08-16 06:52 | RAD ---
History: Dyspnea and fever. Exam: Single-view chest. Comparison: 08/15/2017. Findings: The trachea is midline. The cardiomediastinal silhouette is mildly enlarged status post median sterno marlene. There is a stable left-sided cardiac pacing device. There unchanged perihilar infiltrates/airsp kim disease which can be seen with pneumonia. Follow-up to resolution recommended. No other changes a re appreciated. The bones stable. Impression: Cardiomegaly with unchanged perihilar infiltrates/pneumonia, as above. Reported By:
[2017-08-16] MEDS ORDERED: PATIENT'S HOME MEDICATION (Potassium Chloride [K-Tab Er] 10 MEQ) PO SCH (09:00)
[2017-08-16] MEDS: ARICEPT TAB 10 MG PO SCH (09:50)
[2017-08-16] MEDS: CELEXA PO SCH (09:50)
[2017-08-16] MEDS: ASPIRIN EC 81 MG PO SCH (09:50)
[2017-08-16] MEDS: COREG TAB 3.125 MG PO SCH ×2 (09:51→22:06)
[2017-08-16] MEDS: LASIX PO SCH (09:51)
[2017-08-16] MEDS: LEVAQUIN PREMIX IV 750 MG 750 MG/150 ML BAG IV SCH (09:51)
[2017-08-16] MEDS: FOLIC ACID TAB 1 MG PO SCH (09:51)
[2017-08-16] MEDS: ISOSORBIDE DINITRATE PO SCH ×2 (09:51→22:06)
[2017-08-16] MEDS: ROBITUSSIN DM PO SCH ×4 (09:52→22:07)
[2017-08-16] MEDS: RANEXA PO SCH ×2 (09:52→22:07)
[2017-08-16] MEDS: PROTONIX TAB 40 MG PO SCH ×2 (09:52→22:07)
[2017-08-16] MEDS: MICRO K EXTEN CAP 10 MEQ PO SCH (09:52)
[2017-08-16] MEDS: LUBIPROSTONE PO SCH ×2 (10:07→22:09)
[2017-08-16] MEDS: HumuLIN R SUBCUT PRN ×2 (13:36→16:47)
[2017-08-16] MEDS ORDERED: GLUCOPHAGE ONE (16:16)
--- NOTE | 2017-08-16 17:55 | DR.H&P ---
H&P - History & Physical for Day of: H&P Date: 08/15/17 - Chief Complaint Chief Complaint: FEVER, CCC - Allergies Allergies/Adverse Reactions: Allergies Allergy/AdvReac Type Severity Reaction Status Date / Time No Known Drug Allergies Allergy Verified 08/15/17 11:34 - History of Present Illness History of Present Illness: 72 WM ER ADMIT AFTER PRESENTING WITH CO CCC AND LOW GRADE FEVER, PT HAD PMH OF DM, HTN, PANCREATIC MASS, RECENT ACUTE LIVER FAILURE , CHF, CAD. PT HAS HX OF PNEUMONIA. PT ADMITTED FOR TREATMENT AND EVALUATION OF RESP ILLNESS. PLAN TO RESUME HOME MEDS. BP AND BLOOD SUGAR CONTROL - Past Medical History Past Medical History: Angina, Arthritis, CHF, Coronary Artery Disease, CVA, Diabetes, Dyslipidemia, GERD, Hypertension, [place] - Past Surgical History Surgical History: Angioplasty/Stents, CABG/Valve Surgery, Cholecystectomy, Other Additional Surgical History: Patient has pacemaker. - Family History Family Medical History: Diabetes Mellitus, Cancer, Hypertension - Social History Does patient currently use any type of tobacco product: No Have you used tobacco products in the last 12 months: No Type of Tobacco Use: None Does any household member use tobacco: No Alcohol Use: None Drug Use: None - Medications Home Medications: Citalopram 20 mg Tab [CELEXA 20 MG *] 20 mg PO DAILY 08/15/17 [History Confirmed 08/15/17] Donepezil HCl [Aricept] 10 mg PO DAILY 08/15/17 [History Confirmed 08/15/17] Folic Acid [FOLIC ACID TAB 1 MG *] 1 mg PO DAILY 08/15/17 [History Confirmed ] Insulin Detemir (Levemir) [LEVEMIR INSULIN *] 30 units SQ HS 08/15/17 [History Confirmed 08/15/17] Insulin Lispro (Humalog) [HumaLOG INSULIN 10 ML VIAL *] 1 unit SQ PRN PRN [History Confirmed 08/15/17] Lubiprostone [Amitiza] 24 mcg PO BID 08/15/17 [History Confirmed 08/15/17] Meclizine HCl [ANTIVERT 25 MG *] 25 mg PO PRN PRN 08/15/17 [History Confirmed ] Metformin HCl [Metformin HCl ER] 1,000 mg PO BID 08/15/17 [History Confirmed ] Pantoprazole Sodium 40 mg [PROTONIX 40 MG *] 40 mg PO BID 08/15/17 [History Confirmed 08/15/17] - Review of Systems Eyes: No Symptoms Reported ENT: Nose Congestion, Throat Pain Respiratory: Cough, Shortness of Breath, Sputum Cardiovascular: No Symptoms Reported Gastrointestinal: No Symptoms Reported Genitourinary: No Symptoms Reported Musculoskeletal: No Symptoms Reported Skin: Jaundice Neurological: Weakness (MILD) - Physical Exam Vital Signs: Temperature 98.6 F Pulse Rate [Left Radial] 71 Pulse Rate 70 Respiratory Rate 20 Blood Pressure [Left Arm] 143/68 Blood Pressure [Right Arm] 148/72 Blood Pressure 94/53 O2 Sat by Pulse Oximetry 98 Oriented: Normal Eyes: Normal Ear: Normal Nose: Normal Throat: Dry Respiratory: Rhonchi Throughout, RLL Diminished, LLL Diminished Cardiovascular: Normal : Normal Auscultation: Bowel Sounds: Normal Palpation: Normal Tenderness: Epigastric Skin: Decreased Turgur, Other (MILD DIFFUSE JAUNDICE) Musculoskeletal: Back:Lumbar Psychiatric: Normal Mood Description: Calm Speech Pattern: Clear, Appropriate - Assessment/Plan (1) Pneumonia Status: Acute Plan: ADMIT, RESP THERAPY. JET NEBS, IV ATBX, BLOOD AND SPUTUM CULTURES. SUPPLEMENTAL O2. BP AND BLOOD SUGAR MONITORING, ADMISSION LABS. CXR, REPEAT AM LABS, RESUME MEDS (2) Pancreatic mass Status: Acute Plan: FOLLOWED BY GASTROENTEROLOGY AT [facility] (3) Diabetes type 2, uncontrolled Status: Chronic (4) GERD (gastroesophageal reflux disease) Status: Chronic (5) Hypertension Qualifiers: Hypertension type: essential hypertension Qualified Code(s): I10 - Essential (primary) hypertension Status: Chronic (6) Pacemaker Status: Chronic
[2017-08-16] MEDS: LEVEMIR SC SCH (22:09)
[2017-08-16] MEDS: SNACK - Diabetic Appropriate PO SCH (22:10)
[2017-08-17] MEDS: DUONEB 0.5 MG/3 MG NEB SCH ×6 (00:51→21:05)
[2017-08-17] MEDS ORDERED: NS 1/2 1000 ML IV 1,000 ML IV ONE (06:13)
[2017-08-17] MEDS ORDERED: GLUCOPHAGE ONE ×2 (06:14→16:27)
[2017-08-17] MEDS: GLUCOPHAGE PO SCH ×2 (06:16→16:46)
[2017-08-17] MEDS: NS 1/2 1000 ML IV 1,000 ML IV SCH ×3 (06:16→22:01)
[2017-08-17 06:24] LABS: BASOPHILS % (AUTO) 0.7 % (0.2-1.0); EOSINOPHILS # (AUTO) 0.1 x10^3/uL (0.0-0.2); EOSINOPHILS % (AUTO) 2.4 % (0.9-2.9); HEMATOCRIT 26.5 % (42.0-54.0); HEMOGLOBIN 9.5 g/dL (13.5-18.0); LYMPHOCYTES # (AUTO) 2.1 X10^3/uL (1.3-2.9); LYMPHOCYTES % (AUTO) 33.7 % (21.0-51.0); MEAN CORPUSCULAR HEMOGLOBIN 31.5 pg (27.0-34.0); MEAN CORPUSCULAR HGB CONC 35.8 g/dL (33.0-35.0); MEAN CORPUSCULAR VOLUME 87.9 fL (80.0-100.0); MONOCYTES # (AUTO) 0.6 x10^3/uL (0.3-0.8); MONOCYTES % (AUTO) 10.6 % (0.0-13.0); NEUTROPHILS # (AUTO) 3.2 x10^3/uL (2.2-4.8); NEUTROPHILS % (AUTO) 52.6 % (42.0-75.0); PLATELET COUNT 159 X10^3/uL (150.0-450.0); RED BLOOD COUNT 3.02 X10^6/uL (4.7-6.0); RED CELL DISTRIBUTION WIDTH 15.6 % (11.6-16.5); WHITE BLOOD COUNT 6.1 X10^3/uL (3.6-10.0)
[2017-08-17 07:07] LABS: ALANINE AMINOTRANSFERASE 43 Units/L (12-78); ALBUMIN 1.7 g/dL (3.4-5.0); ALKALINE PHOSPHATASE 107 Units/L (46-116); ASPARTATE AMINO TRANSFERASE 29 Units/L (15-37); BLOOD UREA NITROGEN 6 mg/dL (7-18); CALCIUM 8.1 mg/dL (8.5-10.1); CARBON DIOXIDE 25.5 mmol/L (21-32); CHLORIDE 103 mmol/L (98-107); COR CA(FOR HYPOALB) 9.9 mg/dL (8.5-10.1); COR NA(FOR HYPERGLY) 142 mmol/L (136-145); CREATININE 0.83 mg/dL (0.70-1.30); MAGNESIUM 1.5 mg/dL (1.7-2.9); SODIUM 138 mmol/L (136-145); TOTAL PROTEIN 5.5 g/dL (6.4-8.2); eGFR BLACK RACES > 60 (>60); eGFR NON BLACK RACES > 60 (>60)
[2017-08-17] MEDS: ISOSORBIDE DINITRATE PO SCH ×2 (09:31→21:57)
[2017-08-17] MEDS: MICRO K EXTEN CAP 10 MEQ PO SCH (09:31)
[2017-08-17] MEDS: LEVAQUIN PREMIX IV 750 MG 750 MG/150 ML BAG IV SCH (09:31)
[2017-08-17] MEDS: PROTONIX TAB 40 MG PO SCH ×2 (09:32→21:57)
[2017-08-17] MEDS: FOLIC ACID TAB 1 MG PO SCH (09:32)
[2017-08-17] MEDS: LASIX PO SCH (09:32)
[2017-08-17] MEDS: RANEXA PO SCH ×2 (09:32→21:58)
[2017-08-17] MEDS: ASPIRIN EC 81 MG PO SCH (09:32)
[2017-08-17] MEDS: ARICEPT TAB 10 MG PO SCH (09:32)
[2017-08-17] MEDS: CELEXA PO SCH (09:32)
[2017-08-17] MEDS: COREG TAB 3.125 MG PO SCH ×2 (09:33→21:57)
[2017-08-17] MEDS: ROBITUSSIN DM PO SCH ×4 (09:33→22:00)
[2017-08-17] MEDS: LUBIPROSTONE PO SCH ×2 (09:40→21:59)
[2017-08-17] MEDS: HumuLIN R SUBCUT PRN ×2 (13:31→17:11)
[2017-08-17] MEDS: SNACK - Diabetic Appropriate PO SCH (21:58)
[2017-08-17] MEDS: LEVEMIR SC SCH (22:00)
[2017-08-18] MEDS ORDERED: NS 1/2 1000 ML IV 1,000 ML IV ONE ×2 (00:19→16:25)
[2017-08-18] MEDS: DUONEB 0.5 MG/3 MG NEB SCH ×6 (01:20→20:47)
[2017-08-18] MEDS ORDERED: GLUCOPHAGE ONE ×2 (05:27→16:09)
[2017-08-18] MEDS: HumuLIN R SUBCUT PRN (05:33)
[2017-08-18 06:33] LABS: BASOPHILS # (AUTO) 0.1 X10^3/uL (0.0-0.1); BASOPHILS % (AUTO) 1.2 % (0.2-1.0); EOSINOPHILS # (AUTO) 0.2 x10^3/uL (0.0-0.2); EOSINOPHILS % (AUTO) 3.3 % (0.9-2.9); HEMATOCRIT 26.9 % (42.0-54.0); HEMOGLOBIN 9.7 g/dL (13.5-18.0); LYMPHOCYTES # (AUTO) 1.6 X10^3/uL (1.3-2.9); LYMPHOCYTES % (AUTO) 31.3 % (21.0-51.0); MEAN CORPUSCULAR HEMOGLOBIN 31.3 pg (27.0-34.0); MEAN CORPUSCULAR HGB CONC 36.2 g/dL (33.0-35.0); MEAN CORPUSCULAR VOLUME 86.5 fL (80.0-100.0); MEAN PLATELET VOLUME 7.8 fL (7.4-11.0); MONOCYTES # (AUTO) 0.5 x10^3/uL (0.3-0.8); MONOCYTES % (AUTO) 9.7 % (0.0-13.0); NEUTROPHILS # (AUTO) 2.8 x10^3/uL (2.2-4.8); NEUTROPHILS % (AUTO) 54.5 % (42.0-75.0); PLATELET COUNT 165 X10^3/uL (150.0-450.0); RED BLOOD COUNT 3.11 X10^6/uL (4.7-6.0); RED CELL DISTRIBUTION WIDTH 15.5 % (11.6-16.5); WHITE BLOOD COUNT 5.2 X10^3/uL (3.6-10.0)
[2017-08-18 06:49] LABS: ALANINE AMINOTRANSFERASE 36 Units/L (12-78); ALBUMIN 1.7 g/dL (3.4-5.0); ALKALINE PHOSPHATASE 108 Units/L (46-116); ASPARTATE AMINO TRANSFERASE 24 Units/L (15-37); BLOOD UREA NITROGEN 9 mg/dL (7-18); CALCIUM 8.3 mg/dL (8.5-10.1); CARBON DIOXIDE 24.8 mmol/L (21-32); CHLORIDE 102 mmol/L (98-107); COR CA(FOR HYPOALB) 10.1 mg/dL (8.5-10.1); COR NA(FOR HYPERGLY) 141 mmol/L (136-145); CREATININE 0.87 mg/dL (0.70-1.30); SODIUM 138 mmol/L (136-145); TOTAL PROTEIN 5.6 g/dL (6.4-8.2); eGFR BLACK RACES > 60 (>60); eGFR NON BLACK RACES > 60 (>60)
[2017-08-18] MEDS: GLUCOPHAGE PO SCH ×2 (09:19→16:20)
[2017-08-18] MEDS: ASPIRIN EC 81 MG PO SCH (09:19)
[2017-08-18] MEDS: RANEXA PO SCH ×2 (09:19→21:11)
[2017-08-18] MEDS: CELEXA PO SCH (09:20)
[2017-08-18] MEDS: PROTONIX TAB 40 MG PO SCH ×2 (09:20→21:11)
[2017-08-18] MEDS: LASIX PO SCH (09:20)
[2017-08-18] MEDS: ISOSORBIDE DINITRATE PO SCH ×2 (09:20→21:11)
[2017-08-18] MEDS: MICRO K EXTEN CAP 10 MEQ PO SCH (09:20)
[2017-08-18] MEDS: FOLIC ACID TAB 1 MG PO SCH (09:21)
[2017-08-18] MEDS: LUBIPROSTONE PO SCH ×2 (09:21→21:13)
[2017-08-18] MEDS: ARICEPT TAB 10 MG PO SCH (09:21)
[2017-08-18] MEDS: ROBITUSSIN DM PO SCH ×4 (09:21→21:12)
[2017-08-18] MEDS: LEVAQUIN PREMIX IV 750 MG 750 MG/150 ML BAG IV SCH (09:21)
[2017-08-18] MEDS: COREG TAB 3.125 MG PO SCH ×2 (09:21→21:12)
[2017-08-18] MEDS: NS 1/2 1000 ML IV 1,000 ML IV SCH (16:24)
[2017-08-18] MEDS ORDERED: MORPHINE SULFATE INJ 2 MG INJ IVP PRN (18:27)
[2017-08-18] MEDS: SNACK - Diabetic Appropriate PO SCH (21:11)
[2017-08-18] MEDS: LEVEMIR SC SCH (21:12)
[2017-08-19] MEDS: DUONEB 0.5 MG/3 MG NEB SCH ×6 (01:13→20:53)
[2017-08-19] MEDS ORDERED: NS 1/2 1000 ML IV 1,000 ML IV ONE ×2 (03:20→18:11)
[2017-08-19] MEDS: NS 1/2 1000 ML IV 1,000 ML IV SCH ×2 (04:18→21:10)
[2017-08-19] MEDS ORDERED: GLUCOPHAGE ONE ×2 (04:23→16:21)
[2017-08-19] MEDS: HumuLIN R SUBCUT PRN ×3 (05:56→17:01)
[2017-08-19] MEDS: GLUCOPHAGE PO SCH ×2 (06:03→17:02)
[2017-08-19 06:20] LABS: BASOPHILS % (AUTO) 0.5 % (0.2-1.0); EOSINOPHILS # (AUTO) 0.2 x10^3/uL (0.0-0.2); EOSINOPHILS % (AUTO) 3.2 % (0.9-2.9); HEMATOCRIT 28.9 % (42.0-54.0); HEMOGLOBIN 10.4 g/dL (13.5-18.0); LYMPHOCYTES # (AUTO) 1.9 X10^3/uL (1.3-2.9); LYMPHOCYTES % (AUTO) 27.4 % (21.0-51.0); MEAN CORPUSCULAR HEMOGLOBIN 31.6 pg (27.0-34.0); MEAN CORPUSCULAR VOLUME 87.9 fL (80.0-100.0); MEAN PLATELET VOLUME 7.8 fL (7.4-11.0); MONOCYTES # (AUTO) 0.7 x10^3/uL (0.3-0.8); MONOCYTES % (AUTO) 9.7 % (0.0-13.0); NEUTROPHILS # (AUTO) 4.2 x10^3/uL (2.2-4.8); NEUTROPHILS % (AUTO) 59.2 % (42.0-75.0); PLATELET COUNT 197 X10^3/uL (150.0-450.0); RED BLOOD COUNT 3.29 X10^6/uL (4.7-6.0); RED CELL DISTRIBUTION WIDTH 15.3 % (11.6-16.5)
[2017-08-19 06:46] LABS: ALANINE AMINOTRANSFERASE 35 Units/L (12-78); ALBUMIN 1.9 g/dL (3.4-5.0); ALKALINE PHOSPHATASE 97 Units/L (46-116); ASPARTATE AMINO TRANSFERASE 23 Units/L (15-37); BLOOD UREA NITROGEN 7 mg/dL (7-18); CALCIUM 8.1 mg/dL (8.5-10.1); CARBON DIOXIDE 23.6 mmol/L (21-32); CHLORIDE 103 mmol/L (98-107); COR CA(FOR HYPOALB) 9.8 mg/dL (8.5-10.1); COR NA(FOR HYPERGLY) 142 mmol/L (136-145); CREATININE 0.86 mg/dL (0.70-1.30); SODIUM 139 mmol/L (136-145); TOTAL PROTEIN 5.8 g/dL (6.4-8.2); eGFR BLACK RACES > 60 (>60); eGFR NON BLACK RACES > 60 (>60)
--- NOTE | 2017-08-19 07:09 | RAD ---
Examination: AP chest History: Dyspnea Comparison 08/16/2017 Findings: Continued normal heart size with stable position of pacing device. Interval improvement in pulmonary aeration with decreasing infiltrates. No new consolidation, pneumothorax or pleural fluid. Mild residual bilateral perihilar infiltrate/atelectasis. Impression: Significant interval improvement with no new abnormality. Reported By:
[2017-08-19] MEDS: LEVAQUIN PREMIX IV 750 MG 750 MG/150 ML BAG IV SCH (10:21)
[2017-08-19] MEDS: COREG TAB 3.125 MG PO SCH ×2 (10:22→21:08)
[2017-08-19] MEDS: RANEXA PO SCH ×2 (10:22→21:08)
[2017-08-19] MEDS: ISOSORBIDE DINITRATE PO SCH ×2 (10:24→21:08)
[2017-08-19] MEDS: ARICEPT TAB 10 MG PO SCH (10:24)
[2017-08-19] MEDS: PROTONIX TAB 40 MG PO SCH ×2 (10:25→21:08)
[2017-08-19] MEDS: CELEXA PO SCH (10:25)
[2017-08-19] MEDS: MICRO K EXTEN CAP 10 MEQ PO SCH (10:25)
[2017-08-19] MEDS: FOLIC ACID TAB 1 MG PO SCH (10:25)
[2017-08-19] MEDS: ASPIRIN EC 81 MG PO SCH (10:25)
[2017-08-19] MEDS: ROBITUSSIN DM PO SCH ×4 (10:26→21:08)
[2017-08-19] MEDS: LASIX PO SCH (10:26)
[2017-08-19] MEDS: LUBIPROSTONE PO SCH ×2 (10:29→21:10)
--- NOTE | 2017-08-19 13:16 | PCM.PROG ---
Progress Note - Progress Note for Day of Date: 08/18/17 - Subjective Subjective: improving cough and co loose stool continued - Past Medical Family Social History Past Med/Fam/Surg Hx: No changes since H&P Allergies: Allergies No Known Drug Allergies Allergy (Verified 08/15/17 11:34) - Review of Systems ROS: No change since H&P - Vital Signs and I&O's Vital Signs: Temperature 97.5 F Pulse Rate [Left Radial] 75 Pulse Rate 68 Respiratory Rate 20 Blood Pressure [Left Arm] 136/79 Blood Pressure [Right Arm] 148/72 Blood Pressure 94/53 O2 Sat by Pulse Oximetry 95 Intake and Output: Intake & Output 08/17/17 08/18/17 08/19/17 08/20/17 11:59 11:59 11:59 11:59 Intake Total 2770 2438 3485 Output Total 3775 600 1500 Balance -1005 1838 1984 - Physical Exam Oriented: Normal Eyes: Normal Ear: Normal Nose: Normal Throat: Dry Respiratory: Diminished Cardiovascular: Normal : Normal Auscultation: Bowel Sounds: Normal Tenderness: Epigastric Skin: Decreased Turgur, Other (MILD DIFFUSE JAUNDICE) Musculoskeletal: Back:Lumbar Psychiatric: Normal Mood Description: Calm Speech Pattern: Appropriate, Unclear - Laboratory and Diagnostics Result Diagrams: 08/19/17 05:30 08/19/17 05:30 Labs: 08/17/17 09:34 Sputum - Expectorated Sputum Sputum Culture - Final 08/17/17 09:34 Sputum - Expectorated Sputum - Final 08/15/17 13:20 Blood Blood Culture - Preliminary Laboratory WBC 7.0 X10^3/uL (3.6-10.0) 08/19/17 05:30 RBC 3.29 X10^6/uL (4.7-6.0) L 08/19/17 05:30 Hgb 10.4 g/dL (13.5-18.0) L 08/19/17 05:30 Hct 28.9 % (42.0-54.0) L 08/19/17 05:30 MCV 87.9 fL (80.0-100.0) 08/19/17 05:30 MCH 31.6 pg (27.0-34.0) 08/19/17 05:30 MCHC 36.0 g/dL (33.0-35.0) H 08/19/17 05:30 RDW 15.3 % (11.6-16.5) 08/19/17 05:30 Plt Count 197 X10^3/uL (150.0-450.0) 08/19/17 05:30 MPV 7.8 fL (7.4-11.0) 08/19/17 05:30 Neut % (Auto) 59.2 % (42.0-75.0) 08/19/17 05:30 Lymph % (Auto) 27.4 % (21.0-51.0) 08/19/17 05:30 [place] % (Auto) 9.7 % (0.0-13.0) 08/19/17 05:30 Eos % (Auto) 3.2 % (0.9-2.9) H 08/19/17 05:30 Baso % (Auto) 0.5 % (0.2-1.0) 08/19/17 05:30 Neut # (Auto) 4.2 x10^3/uL (2.2-4.8) 08/19/17 05:30 Lymph # (Auto) 1.9 X10^3/uL (1.3-2.9) 08/19/17 05:30 [place] # (Auto) 0.7 x10^3/uL (0.3-0.8) 08/19/17 05:30 Eos # (Auto) 0.2 x10^3/uL (0.0-0.2) 08/19/17 05:30 Baso # (Auto) 0.0 X10^3/uL (0.0-0.1) 08/19/17 05:30 Absolute Nucleated RBC 0.0 /100WBC 08/19/17 05:30 INR Target Range - 08/15/17 12:00 INR 1.11 (0.8-1.3) 08/15/17 12:00 APTT 31.7 SECONDS (22.9-36.5) 08/15/17 12:00 PTT Comment - 08/15/17 12:00 Sodium 139 mmol/L (136-145) 08/19/17 05:30 Corrected Sodium 142 mmol/L (136-145) 08/19/17 05:30 Potassium 3.4 mmol/L (3.5-5.1) L 08/19/17 05:30 Chloride 103 mmol/L (98-107) 08/19/17 05:30 Carbon Dioxide 23.6 mmol/L (21-32) 08/19/17 05:30 BUN 7 mg/dL (7-18) 08/19/17 05:30 Creatinine 0.86 mg/dL (0.70-1.30) 08/19/17 05:30 Est GFR (MDRD) Af Amer > 60 (>60) 08/19/17 05:30 Est GFR (MDRD) Non-Af > 60 (>60) 08/19/17 05:30 Glucose 219 mg/dL (65-99) H 08/19/17 05:30 POC Glucose (mg/dL) 215 mg/dL (65-99) H 08/19/17 11:41 Lactic Acid 4.9 mmol/L (0.4-2.0) H 08/15/17 13:20 Calcium 8.1 mg/dL (8.5-10.1) L 08/19/17 05:30 Corrected Calcium 9.8 mg/dL (8.5-10.1) 08/19/17 05:30 Magnesium 1.5 mg/dL (1.7-2.9) L 08/17/17 05:40 Total Bilirubin 2.10 mg/dL (0.2-1.0) H 08/19/17 05:30 AST 23 Units/L (15-37) 08/19/17 05:30 ALT 35 Units/L (12-78) 08/19/17 05:30 Alkaline Phosphatase 97 Units/L (46-116) 08/19/17 05:30 Creatine Kinase 27 Units/L (39-308) L 08/15/17 12:00 CK-MB (CK-2) < 1.0 ng/mL (0-4.0) 08/15/17 12:00 CK/CKMB % Calc 3.7 % (<4) 08/15/17 12:00 Troponin I < 0.02 ng/mL (0-1.5) 08/15/17 12:00 Total Protein 5.8 g/dL (6.4-8.2) L 08/19/17 05:30 Albumin 1.9 g/dL (3.4-5.0) L 08/19/17 05:30 Globulin 3.9 g/dL (2.5-4.5) 08/19/17 05:30 Albumin/Globulin Ratio 0.5 Ratio (1.1-2.1) L 08/19/17 05:30 H. pylori IgG Antibody Positive (NEGATIVE) A 08/15/17 12:00 - Plan (1) Pneumonia Status: Acute Plan: CONTINUE RESP THERAPY. JET NEBS, IV ATBX, BLOOD AND SPUTUM CULTURES. SUPPLEMENTAL O2. BP AND BLOOD SUGAR MONITORING, ADMISSION LABS. CXR, REPEAT AM LABS (2) Pancreatic mass Status: Acute Plan: FOLLOWED BY GASTROENTEROLOGY AT [facility] (3) Diabetes type 2, uncontrolled Status: Chronic (4) GERD (gastroesophageal reflux disease) Status: Chronic (5) Hypertension Status: Chronic Qualifiers: Hypertension type: essential hypertension Qualified Code(s): I10 - Essential (primary) hypertension (6) Pacemaker Status: Chronic
--- NOTE | 2017-08-19 13:35 | PCM.PROG ---
Progress Note - Progress Note for Day of Date: 08/19/17 - Subjective Subjective: COUGH AND CHEST CONGESTION IMPROVING, PT CONTINUES WITH CO LOWER ADBOMINAL CRAMPS AND DIARRHEA. PT TAKING MORPHINE WITH SOME IMPROVEMENT IN PAIN. - Past Medical Family Social History Past Med/Fam/Surg Hx: No changes since H&P Allergies: Allergies No Known Drug Allergies Allergy (Verified 08/15/17 11:34) - Review of Systems ROS: No change since H&P - Vital Signs and I&O's Vital Signs: Temperature 97.5 F Pulse Rate [Left Radial] 75 Pulse Rate 68 Respiratory Rate 20 Blood Pressure [Left Arm] 136/79 Blood Pressure [Right Arm] 148/72 Blood Pressure 94/53 O2 Sat by Pulse Oximetry 95 Intake and Output: Intake & Output 08/17/17 08/18/17 08/19/17 08/20/17 11:59 11:59 11:59 11:59 Intake Total 2770 2438 3485 Output Total 3775 600 1500 Balance -1005 1838 1984 - Physical Exam Oriented: Normal Eyes: Normal Ear: Normal Nose: Normal Throat: Dry Respiratory: Diminished Cardiovascular: Normal : Normal Auscultation: Bowel Sounds: Normal Tenderness: Epigastric Skin: Decreased Turgur, Other (MILD DIFFUSE JAUNDICE) Musculoskeletal: Back:Lumbar Psychiatric: Normal Mood Description: Calm Speech Pattern: Appropriate, Unclear - Laboratory and Diagnostics Result Diagrams: 08/19/17 05:30 08/19/17 05:30 Labs: 08/17/17 09:34 Sputum - Expectorated Sputum Sputum Culture - Final 08/17/17 09:34 Sputum - Expectorated Sputum - Final 08/15/17 13:20 Blood Blood Culture - Preliminary Laboratory WBC 7.0 X10^3/uL (3.6-10.0) 08/19/17 05:30 RBC 3.29 X10^6/uL (4.7-6.0) L 08/19/17 05:30 Hgb 10.4 g/dL (13.5-18.0) L 08/19/17 05:30 Hct 28.9 % (42.0-54.0) L 08/19/17 05:30 MCV 87.9 fL (80.0-100.0) 08/19/17 05:30 MCH 31.6 pg (27.0-34.0) 08/19/17 05:30 MCHC 36.0 g/dL (33.0-35.0) H 08/19/17 05:30 RDW 15.3 % (11.6-16.5) 08/19/17 05:30 Plt Count 197 X10^3/uL (150.0-450.0) 08/19/17 05:30 MPV 7.8 fL (7.4-11.0) 08/19/17 05:30 Neut % (Auto) 59.2 % (42.0-75.0) 08/19/17 05:30 Lymph % (Auto) 27.4 % (21.0-51.0) 08/19/17 05:30 [place] % (Auto) 9.7 % (0.0-13.0) 08/19/17 05:30 Eos % (Auto) 3.2 % (0.9-2.9) H 08/19/17 05:30 Baso % (Auto) 0.5 % (0.2-1.0) 08/19/17 05:30 Neut # (Auto) 4.2 x10^3/uL (2.2-4.8) 08/19/17 05:30 Lymph # (Auto) 1.9 X10^3/uL (1.3-2.9) 08/19/17 05:30 [place] # (Auto) 0.7 x10^3/uL (0.3-0.8) 08/19/17 05:30 Eos # (Auto) 0.2 x10^3/uL (0.0-0.2) 08/19/17 05:30 Baso # (Auto) 0.0 X10^3/uL (0.0-0.1) 08/19/17 05:30 Absolute Nucleated RBC 0.0 /100WBC 08/19/17 05:30 INR Target Range - 08/15/17 12:00 INR 1.11 (0.8-1.3) 08/15/17 12:00 APTT 31.7 SECONDS (22.9-36.5) 08/15/17 12:00 PTT Comment - 08/15/17 12:00 Sodium 139 mmol/L (136-145) 08/19/17 05:30 Corrected Sodium 142 mmol/L (136-145) 08/19/17 05:30 Potassium 3.4 mmol/L (3.5-5.1) L 08/19/17 05:30 Chloride 103 mmol/L (98-107) 08/19/17 05:30 Carbon Dioxide 23.6 mmol/L (21-32) 08/19/17 05:30 BUN 7 mg/dL (7-18) 08/19/17 05:30 Creatinine 0.86 mg/dL (0.70-1.30) 08/19/17 05:30 Est GFR (MDRD) Af Amer > 60 (>60) 08/19/17 05:30 Est GFR (MDRD) Non-Af > 60 (>60) 08/19/17 05:30 Glucose 219 mg/dL (65-99) H 08/19/17 05:30 POC Glucose (mg/dL) 215 mg/dL (65-99) H 08/19/17 11:41 Lactic Acid 4.9 mmol/L (0.4-2.0) H 08/15/17 13:20 Calcium 8.1 mg/dL (8.5-10.1) L 08/19/17 05:30 Corrected Calcium 9.8 mg/dL (8.5-10.1) 08/19/17 05:30 Magnesium 1.5 mg/dL (1.7-2.9) L 08/17/17 05:40 Total Bilirubin 2.10 mg/dL (0.2-1.0) H 08/19/17 05:30 AST 23 Units/L (15-37) 08/19/17 05:30 ALT 35 Units/L (12-78) 08/19/17 05:30 Alkaline Phosphatase 97 Units/L (46-116) 08/19/17 05:30 Creatine Kinase 27 Units/L (39-308) L 08/15/17 12:00 CK-MB (CK-2) < 1.0 ng/mL (0-4.0) 08/15/17 12:00 CK/CKMB % Calc 3.7 % (<4) 08/15/17 12:00 Troponin I < 0.02 ng/mL (0-1.5) 08/15/17 12:00 Total Protein 5.8 g/dL (6.4-8.2) L 08/19/17 05:30 Albumin 1.9 g/dL (3.4-5.0) L 08/19/17 05:30 Globulin 3.9 g/dL (2.5-4.5) 08/19/17 05:30 Albumin/Globulin Ratio 0.5 Ratio (1.1-2.1) L 08/19/17 05:30 H. pylori IgG Antibody Positive (NEGATIVE) A 08/15/17 12:00 - Plan (1) Pneumonia Status: Acute Plan: CONTINUE RESP THERAPY. JET NEBS, IV ATBX, BLOOD AND SPUTUM CULTURES. SUPPLEMENTAL O2. BP AND BLOOD SUGAR MONITORING, ADMISSION LABS. IMPROVING PNEUMONIA ON CHEST XRAY TODAY. REPEAT AM LABS (2) Pancreatic mass Status: Acute Plan: FOLLOWED BY GASTROENTEROLOGY AT [facility] (3) Diabetes type 2, uncontrolled Status: Chronic (4) GERD (gastroesophageal reflux disease) Status: Chronic (5) Hypertension Status: Chronic Qualifiers: Hypertension type: essential hypertension Qualified Code(s): I10 - Essential (primary) hypertension (6) Pacemaker Status: Chronic (7) Diarrhea Status: Acute Plan: STOOL STUDIES. PPI, HYDRATE
[2017-08-19] MEDS ORDERED: LOMOTIL PO PRN (13:36)
[2017-08-19] MEDS: PEPCID 20 MG IV PREMIX* 20 MG/50 ML BAG IV SCH ×2 (13:52→21:10)
[2017-08-19 14:16] LABS: STOOL FOR WBC POSITIVE (NEGATIVE)
[2017-08-19 14:23] LABS: GIARDIA LAMBLIA ANTIGEN NEGATIVE (NEGATIVE)
[2017-08-19 14:24] LABS: CRYPTOSPORIDIUM PARVUM ANTIGEN NEGATIVE (NEGATIVE)
[2017-08-19] MEDS: SNACK - Diabetic Appropriate PO SCH (21:09)
[2017-08-19] MEDS: LEVEMIR SC SCH (21:11)
[2017-08-20] MEDS: DUONEB 0.5 MG/3 MG NEB SCH ×4 (01:14→13:17)
[2017-08-20] MEDS ORDERED: GLUCOPHAGE ONE (04:07)
[2017-08-20] MEDS: GLUCOPHAGE PO SCH (06:01)
[2017-08-20 06:13] LABS: BASOPHILS % (AUTO) 0.5 % (0.2-1.0); EOSINOPHILS # (AUTO) 0.2 x10^3/uL (0.0-0.2); HEMATOCRIT 30.8 % (42.0-54.0); HEMOGLOBIN 10.9 g/dL (13.5-18.0); LYMPHOCYTES # (AUTO) 1.8 X10^3/uL (1.3-2.9); LYMPHOCYTES % (AUTO) 29.2 % (21.0-51.0); MEAN CORPUSCULAR HGB CONC 35.3 g/dL (33.0-35.0); MEAN CORPUSCULAR VOLUME 87.8 fL (80.0-100.0); MEAN PLATELET VOLUME 7.6 fL (7.4-11.0); MONOCYTES # (AUTO) 0.6 x10^3/uL (0.3-0.8); MONOCYTES % (AUTO) 10.2 % (0.0-13.0); NEUTROPHILS # (AUTO) 3.5 x10^3/uL (2.2-4.8); NEUTROPHILS % (AUTO) 57.1 % (42.0-75.0); PLATELET COUNT 197 X10^3/uL (150.0-450.0); RED BLOOD COUNT 3.51 X10^6/uL (4.7-6.0); RED CELL DISTRIBUTION WIDTH 15.7 % (11.6-16.5); WHITE BLOOD COUNT 6.2 X10^3/uL (3.6-10.0)
[2017-08-20 06:18] LABS: ALANINE AMINOTRANSFERASE 33 Units/L (12-78); ALKALINE PHOSPHATASE 113 Units/L (46-116); ASPARTATE AMINO TRANSFERASE 23 Units/L (15-37); BLOOD UREA NITROGEN 5 mg/dL (7-18); CALCIUM 8.6 mg/dL (8.5-10.1); CARBON DIOXIDE 24.5 mmol/L (21-32); CHLORIDE 105 mmol/L (98-107); COR CA(FOR HYPOALB) 10.2 mg/dL (8.5-10.1); COR NA(FOR HYPERGLY) 144 mmol/L (136-145); CREATININE 0.88 mg/dL (0.70-1.30); SODIUM 142 mmol/L (136-145); TOTAL PROTEIN 6.2 g/dL (6.4-8.2); eGFR BLACK RACES > 60 (>60); eGFR NON BLACK RACES > 60 (>60)
[2017-08-20] MEDS: ROBITUSSIN DM PO SCH ×2 (09:29→13:42)
[2017-08-20] MEDS: ISOSORBIDE DINITRATE PO SCH (09:29)
[2017-08-20] MEDS: LASIX PO SCH (09:30)
[2017-08-20] MEDS: MICRO K EXTEN CAP 10 MEQ PO SCH (09:30)
[2017-08-20] MEDS: COREG TAB 3.125 MG PO SCH (09:30)
[2017-08-20] MEDS: CELEXA PO SCH (09:30)
[2017-08-20] MEDS: FOLIC ACID TAB 1 MG PO SCH (09:30)
[2017-08-20] MEDS: ARICEPT TAB 10 MG PO SCH (09:31)
[2017-08-20] MEDS: PROTONIX TAB 40 MG PO SCH (09:31)
[2017-08-20] MEDS: ASPIRIN EC 81 MG PO SCH (09:31)
[2017-08-20] MEDS: RANEXA PO SCH (09:31)
[2017-08-20] MEDS: PEPCID 20 MG IV PREMIX* 20 MG/50 ML BAG IV SCH (09:31)
[2017-08-20] MEDS: LUBIPROSTONE PO SCH (09:32)
[2017-08-20] MEDS: LEVAQUIN PREMIX IV 750 MG 750 MG/150 ML BAG IV SCH (09:32)
[2017-08-20] MEDS: HumuLIN R SUBCUT PRN (11:49)
[2017-08-20 15:08] VITALS: BP 119/57
== END 2017-08-20 15:34 | disposition home or self-care (01) | DRG 195 ==
LOC: ER 11:36 → MED/SURG 14:26
PROVIDERS: ADMIT Obstetrics & Gynecology Obstetrics; ATTEND Internal Medicine
DX: J18.1 Lobar pneumonia, unspecified organism (principal); K86.89 Other specified diseases of pancreas; B96.81 Helicobacter pylori [H. pylori] as the cause of diseases classified elsewhere; E87.6 Hypokalemia; R07.89 Other chest pain; I25.10 Atherosclerotic heart disease of native coronary artery without angina pectoris; E11.65 Type 2 diabetes mellitus with hyperglycemia; E03.8 Other specified hypothyroidism; K21.9 Gastro-esophageal reflux disease without esophagitis; I10 Essential (primary) hypertension; K29.60 Other gastritis without bleeding; R94.31 Abnormal electrocardiogram [ECG] [EKG]; R06.02 Shortness of breath; Z95.0 Presence of cardiac pacemaker; R26.89 Other abnormalities of gait and mobility; E83.42 Hypomagnesemia; R19.7 Diarrhea, unspecified
CPT/HCPCS: 36415; 71045; 71046; 80053; 82274; 82550; 82553; 82947; 83605; 83630; 83735; 84132; 84484; 85025; 85610; 85730; 86677; 87040; 87045; 87070; 87205; 87328; 87329; 87336; 87338; 87427; 87449; 87493; 93005; 93010; 94640; 94760; 96365; 96367; 96374; 97535; 99284; A4222; S0028; 1956; J1815; J1817; J1956; J3490; J7120; J7620

== ENCOUNTER → 2017-09-06 | Outpatient (CLI) | payer OTHER ==
[2017-08-20 15:08] VITALS: BP 119/57
--- NOTE | 2017-09-06 13:29 | RAD ---
Exam: Chest two views History: 72-year-old male with shortness of breath. Comparison: Previous chest radiograph from 08/19/2017 Findings: Dual lead pacemaker is again seen. Heart size and pulmonary vasculature are normal. Previou sly identified pulmonary vascular congestion and bilateral pulmonary infiltrates have resolved. At th is point the lungs are clear. No pleural effusion on either side. Impression: Since 08/19/2017, there has been interval resolution of the pulmonary vascular congestion and bilater al perihilar infiltrates. Reported By:
== END ==
LOC: RAD 12:21
PROVIDERS: ATTEND Internal Medicine
DX: R06.02 Shortness of breath (principal)
CPT/HCPCS: 71046

== ENCOUNTER 2017-09-09 20:55 | Observation (INO) | payer OTHER ==
--- NOTE | 2017-09-09 21:49 | DR.GENAD ---
HPI - HPI Comment HPI Comment: FAMILY MEMBER SAID PATIENT IS TRYING TO FALL WHEN GETS UP. HE IS EATING POORLY. HE IS CONFUSE ALSO. - Complaint/Symptoms Chief Complaint Doctors Comments: ABDOMINAL PAIN. DIARRHEA, WEAKNESS AND AMS THAT IS GETTING WORSE. Chief Complaint:: diarrhea, abdominal pain - Nurses notes reviewed Nurses Notes Review: Yes - Source History Provided: Patient - Mode of Arrival Mode of Arrival: Ambulatory - Timing Onset of Chief Complaint: 09/09/17 Came on: Suddenly - Duration Duration: Constant Duration: Days - Severity Severity: Moderate PMH - PMH Past Medical History: Yes Past Medical History: Angina, Arthritis, CHF, Coronary Artery Disease, CVA, Diabetes, Dyslipidemia, GERD, Hypertension, Liver Disease, [place] Past Medical History Comment: pancreatitis Past Surgical History: Yes Surgical History: Angioplasty/Stents, CABG/Valve Surgery, Cholecystectomy, Other Past Surgical History Comment: pacemaker, stent placed in pancrease due to blockage 08/08 - Family History History of Family Medical Conditions: Yes Family Medical History: Diabetes Mellitus, Cancer, Hypertension - Social History Does patient currently use any type of tobacco product: No Have you used tobacco products in the last 12 months: No Type of Tobacco Use: None Does any household member use tobacco: No Alcohol Use: None Do you use any recreational Drugs:: No Lives With: Family Lives Where: Home - infectious screening In the last 2 months have you had wt loss of >10#?: NO Have you had fever, night sweats or hemotysis?: No Have you traveled outside the country in the last 6 months?: No Isolation: Standard ROS - Review of Systems Constitutional: Fever, Weakness, Fatigue. negative: Chills Eyes: No Symptoms Reported. negative: Eye Pain, Discharge ENTM: negative: Ear Pain, Nose Discharge, Nose Congestion, Throat Pain Respiratoy: Non-Productive Cough, Short of Breath, Wheezing. negative: Hemoptysis Cardiovascular: negative: Chest Pain Gastrointestinal/Abdominal: Abdominal Pain, Diarrhea Genitourinary: negative: Dysuria, Hematuria Neurological: Headache, Weakness, Dizziness Musculoskeletal: Muscle Pain Integumentary: No Symptoms Reported Hematologic/Lymphatic: No Symptoms Reported Endocrine: No Symptoms Reported All Other Systems: Reviewed and Negative Unable to Obtain Due To: Altered mental status PE - Vital Signs Vitals: Temperature 98.7 F Pulse Rate 68 Respiratory Rate 16 Blood Pressure [Left Arm] 119/57 Blood Pressure [Right Arm] 148/72 Blood Pressure 135/72 O2 Sat by Pulse Oximetry 98 - General Limitations: Altered Mental Status General Appearance: Alert - Head Head Exam: Normal Inspection - Eyes Eye exam: Normal Appearance, PERRL, EOMI. negative: Scleral Icterus, Conjunctival Injection - ENT ENT Exam: Normal External Ear Exam External Ear Exam: Normal External Inspection TM/Canal Exam: Bilateral Normal Nose Exam: Normal Nose Exam Mouth Exam: Normal Inspection Throat Exam: Normal Inspection - Neck Neck Exam: Trachea Midline - Chest Chest Inspection: Symmetric Chest Wall Rise - Respiratory Respiratory Exam: Normal Lung Sounds Bilat Respiratory Exam: Bilateral Rhonchi - Cardiovascular Cardiovascular Exam: Regular Rate, Normal Rhythm, Normal Heart Sounds - Abdominal Exam Abdominal Exam: Normal Bowel Sounds, Soft, Tenderness Abdominal Tenderness: Diffuse, Mild - Extremities Extremities Exam: Normal Inspection - Back Back Exam: (L) CVA Tenderness - Neurologic Neurological Exam: Alert, Other (CONFUSE). negative: Motor Sensory Deficit - Psychiatric Psychiatric Exam: Flat Affect - Skin Skin Exam: Normal Color MDM - Additional Information Additional Information Obtained From: Family - Differential Diagnosis Differential Diagnosis: ABDOMINAL PAIN, DIARRHEA, DEHYDRATION, GENERALIZE WEAKNESS Course - Treatment Treatment: SEE ORDERS. - Consultation Consultation Comments: DISCUSS PATIENT WITH DR. BROWER. HE WILL ADMIT PATIENT. - Education/Counseling Education/Counseling: Patient, Family, Education Educated On: Diagnosis ROR - Labs Reviewed Laboratory Results Reviewed?: Yes Result Diagrams: 09/09/17 22:00 09/09/17 22:00 Laboratory: WBC 6.2 X10^3/uL (3.6-10.0) 09/09/17 22:00 RBC 4.02 X10^6/uL (4.7-6.0) L 09/09/17 22:00 Hgb 12.1 g/dL (13.5-18.0) L 09/09/17 22:00 Hct 34.7 % (42.0-54.0) L 09/09/17 22:00 MCV 86.5 fL (80.0-100.0) 09/09/17 22:00 MCH 30.0 pg (27.0-34.0) 09/09/17 22:00 MCHC 34.7 g/dL (33.0-35.0) 09/09/17 22:00 RDW 14.5 % (11.6-16.5) 09/09/17 22:00 Plt Count 142 X10^3/uL (150.0-450.0) L 09/09/17 22:00 MPV 7.2 fL (7.4-11.0) L 09/09/17 22:00 Neut % (Auto) 58.9 % (42.0-75.0) 09/09/17 22:00 Lymph % (Auto) 27.3 % (21.0-51.0) 09/09/17 22:00 [place] % (Auto) 10.4 % (0.0-13.0) 09/09/17 22:00 Eos % (Auto) 2.5 % (0.9-2.9) 09/09/17 22:00 Baso % (Auto) 0.9 % (0.2-1.0) 09/09/17 22:00 Neut # (Auto) 3.6 x10^3/uL (2.2-4.8) 09/09/17 22:00 Lymph # (Auto) 1.7 X10^3/uL (1.3-2.9) 09/09/17 22:00 [place] # (Auto) 0.6 x10^3/uL (0.3-0.8) 09/09/17 22:00 Eos # (Auto) 0.2 x10^3/uL (0.0-0.2) 09/09/17 22:00 Baso # (Auto) 0.1 X10^3/uL (0.0-0.1) 09/09/17 22:00 Absolute Nucleated RBC 0.0 /100WBC 09/09/17 22:00 Sodium 136 mmol/L (136-145) 09/09/17 22:00 Corrected Sodium 143 mmol/L (136-145) 09/09/17 22:00 Potassium 3.1 mmol/L (3.5-5.1) L 09/09/17 22:00 Chloride 99 mmol/L (98-107) 09/09/17 22:00 Carbon Dioxide 28.6 mmol/L (21-32) 09/09/17 22:00 BUN 7 mg/dL (7-18) 09/09/17 22:00 Creatinine 0.85 mg/dL (0.70-1.30) 09/09/17 22:00 Est GFR (MDRD) Af Amer > 60 (>60) 09/09/17 22:00 Est GFR (MDRD) Non-Af > 60 (>60) 09/09/17 22:00 Glucose 381 mg/dL (65-99) H 09/09/17 22:00 Calcium 8.5 mg/dL (8.5-10.1) 09/09/17 22:00 Corrected Calcium 9.5 mg/dL (8.5-10.1) 09/09/17 22:00 Total Bilirubin 1.40 mg/dL (0.2-1.0) H 09/09/17 22:00 AST 21 Units/L (15-37) 09/09/17 22:00 ALT 32 Units/L (12-78) 09/09/17 22:00 Alkaline Phosphatase 79 Units/L (46-116) 09/09/17 22:00 Total Protein 7.0 g/dL (6.4-8.2) 09/09/17 22:00 Albumin 2.8 g/dL (3.4-5.0) L 09/09/17 22:00 Globulin 4.2 g/dL (2.5-4.5) 09/09/17 22:00 Albumin/Globulin Ratio 0.7 Ratio (1.1-2.1) L 09/09/17 22:00 Amylase 23 Units/L (25-115) L 09/09/17 22:00 Lipase 188 Units/L (73-393) 09/09/17 22:00 Specimen Type Clean catch urine 09/09/17 22:37 Urine Color Yellow (YELLOW) 09/09/17 22:37 Urine Appearance Clear (CLEAR) 09/09/17 22:37 Urine pH 7.0 (5.0 - 8.0) 09/09/17 22:37 Ur Specific [place] 1.005 (1.000-1.030) 09/09/17 22:37 Urine Protein Negative (NEGATIVE) 09/09/17 22:37 Urine Glucose (UA) 4+ (NEGATIVE) 09/09/17 22:37 Urine Ketones Negative (NEGATIVE) 09/09/17 22:37 Urine Occult Blood Negative (NEGATIVE) 09/09/17 22:37 Urine Nitrite Negative (NEGATIVE) 09/09/17 22:37 Urine Bilirubin Negative (NEGATIVE) 09/09/17 22:37 Urine Urobilinogen Normal (NORMAL) 09/09/17 22:37 Ur Leukocyte Esterase Negative (NEGATIVE) 09/09/17 22:37 - XRAY XRAY Interpreted by: Radiologist XRAY Findings: REPORTDISCUSS WITH PATIENT AND FAMILY. - Diagnosis Discharge Problem: Dehydration, Hypokalemia, Generalized weakness Mental status alteration Qualifiers: Altered mental status type: transient alteration of awareness Qualified Code(s) : R40.4 - Transient alteration of awareness Abdominal pain Qualifiers: Abdominal location: generalized Qualified Code(s): R10.84 - Generalized abdominal pain - Discharge Plan Disposition: 09 ADMITTED INPATIENT Condition: Stable - Follow ups/Referrals - Instructions
[2017-09-09 22:12] LABS: BASOPHILS # (AUTO) 0.1 X10^3/uL (0.0-0.1); BASOPHILS % (AUTO) 0.9 % (0.2-1.0); EOSINOPHILS # (AUTO) 0.2 x10^3/uL (0.0-0.2); EOSINOPHILS % (AUTO) 2.5 % (0.9-2.9); HEMATOCRIT 34.7 % (42.0-54.0); HEMOGLOBIN 12.1 g/dL (13.5-18.0); LYMPHOCYTES # (AUTO) 1.7 X10^3/uL (1.3-2.9); LYMPHOCYTES % (AUTO) 27.3 % (21.0-51.0); MEAN CORPUSCULAR HGB CONC 34.7 g/dL (33.0-35.0); MEAN CORPUSCULAR VOLUME 86.5 fL (80.0-100.0); MEAN PLATELET VOLUME 7.2 fL (7.4-11.0); MONOCYTES # (AUTO) 0.6 x10^3/uL (0.3-0.8); MONOCYTES % (AUTO) 10.4 % (0.0-13.0); NEUTROPHILS # (AUTO) 3.6 x10^3/uL (2.2-4.8); NEUTROPHILS % (AUTO) 58.9 % (42.0-75.0); PLATELET COUNT 142 X10^3/uL (150.0-450.0); RED BLOOD COUNT 4.02 X10^6/uL (4.7-6.0); RED CELL DISTRIBUTION WIDTH 14.5 % (11.6-16.5); WHITE BLOOD COUNT 6.2 X10^3/uL (3.6-10.0)
[2017-09-09 22:24] LABS: ALANINE AMINOTRANSFERASE 32 Units/L (12-78); ALBUMIN 2.8 g/dL (3.4-5.0); ALKALINE PHOSPHATASE 79 Units/L (46-116); AMYLASE 23 Units/L (25-115); ASPARTATE AMINO TRANSFERASE 21 Units/L (15-37); BLOOD UREA NITROGEN 7 mg/dL (7-18); CALCIUM 8.5 mg/dL (8.5-10.1); CARBON DIOXIDE 28.6 mmol/L (21-32); CHLORIDE 99 mmol/L (98-107); COR CA(FOR HYPOALB) 9.5 mg/dL (8.5-10.1); COR NA(FOR HYPERGLY) 143 mmol/L (136-145); CREATININE 0.85 mg/dL (0.70-1.30); LIPASE 188 Units/L (73-393); SODIUM 136 mmol/L (136-145); eGFR BLACK RACES > 60 (>60); eGFR NON BLACK RACES > 60 (>60)
--- NOTE | 2017-09-09 22:37 | CT ---
CT HEAD WITHOUT CONTRAST CLINICAL HISTORY: 72-year-old male with altered mental status. COMPARISON: CT head 06/30/2016. TECHNIQUE: Multiple, non-contrasted axial CT images were obtained from the skull base to the cranial vertex. Coronal and sagittal reformats were performed. FINDINGS: There are no abnormal intra- or extra-axial fluid collections, midline shift, or mass effec t. Hyman-white differentiation is normal. Empty sella. Global cortical involutional changes are presen t that are advanced for the patient's stated age. The ventricular system is enlarged but commensurate with the degree of sulcal prominence. Severe periventricular and supraventricular white matter hypod ensity is present that is nonspecific in appearance, but most likely to represent microvascular ische javon changes. Atherosclerotic vascular calcification is present within the carotid siphons and distal vertebral arteries. The imaged paranasal sinuses, mastoid air cells, and tympanic spaces are clear. Bilateral lens implan ts with senescent scleral calcifications. IMPRESSION: 1. No definite evidence of an acute intracranial process. If clinical concern persists for acute stro ke, consider MRI/MRA brain. 2. Severe microvascular white matter ischemic changes, with associated volume loss. Reported By:
--- NOTE | 2017-09-09 22:40 | CT ---
CT abdomen and pelvis without contrast Indication: History of pancreas stent. Now with altered mental status, abdominal pain and diarrhea Technique: Helical images through the abdomen and pelvis without contrast. Coronal and sagittal refor mats provided. Comparison: 07/22/2017 and 07/01/2017 CT abdomen and pelvis Findings: Limited images through the lower chest show cardiomegaly with pacemaker leads and CABG ramirez ge. There is minimal dependent atelectasis. The small right lower lobe lung nodule on axial image 7 i s unchanged from the recent prior. There is gastroesophageal reflux. Review of bone windows shows no new osseous lesion with spine and pelvis degenerative change. Abdomen: There is gas in the biliary tree with stent across the pancreas head into the duodenum. Gas inside the liver suggest patent stent. There is enlarged appearance of the pancreas head, difficult t o define without contrast, compatible with underlying mass. The adrenal glands, kidneys, spleen, stom ach and small bowel show no acute abnormality. The colon and appendix are normal. Vascular plaque is noted. No large liver lesion seen, though lack of contrast limits sensitivity for metastatic disease. Duodenum diverticulum noted Pelvis: The urinary bladder and rectum are normal. Prostate gland is normal. Impression: 1. Gastroesophageal reflux, fairly severe. Correlate with this is a source of the patient's symptoms. 2. Apparently patent biliary stent with pancreas head mass again noted. No other acute abdomen or pel vis abnormality seen Reported By:
[2017-09-09 22:56] LABS: BILIRUBIN,URINE NEGATIVE (NEGATIVE); BLOOD/HEMOGLOBIN,URINE NEGATIVE (NEGATIVE); GLUCOSE, URINE 4+ (NEGATIVE); KETONES,URINE NEGATIVE (NEGATIVE); LEUKOCYTE ESTERASE ,URINE NEGATIVE (NEGATIVE); NITRITES,URINE NEGATIVE (NEGATIVE); PROTEIN,URINE NEGATIVE (NEGATIVE); UROBILINOGEN,URINE NORMAL (NORMAL)
[2017-09-09 22:57] LABS: APPEARANCE,URINE CLEAR (CLEAR); COLOR,URINE YELLOW (YELLOW)
[2017-09-10] MEDS: NS + KCL 20 MEQ/L 1,000 ML IV SCH ×3 (01:51→16:16)
[2017-09-10 06:05] VITALS: BMI 27.5
[2017-09-10 06:22] LABS: BASOPHILS % (AUTO) 0.9 % (0.2-1.0); EOSINOPHILS # (AUTO) 0.2 x10^3/uL (0.0-0.2); EOSINOPHILS % (AUTO) 3.9 % (0.9-2.9); HEMATOCRIT 32.9 % (42.0-54.0); HEMOGLOBIN 11.5 g/dL (13.5-18.0); LYMPHOCYTES # (AUTO) 1.7 X10^3/uL (1.3-2.9); LYMPHOCYTES % (AUTO) 32.9 % (21.0-51.0); MEAN CORPUSCULAR HEMOGLOBIN 30.1 pg (27.0-34.0); MEAN CORPUSCULAR HGB CONC 35.1 g/dL (33.0-35.0); MEAN PLATELET VOLUME 7.3 fL (7.4-11.0); MONOCYTES # (AUTO) 0.6 x10^3/uL (0.3-0.8); MONOCYTES % (AUTO) 11.8 % (0.0-13.0); NEUTROPHILS # (AUTO) 2.6 x10^3/uL (2.2-4.8); NEUTROPHILS % (AUTO) 50.5 % (42.0-75.0); PLATELET COUNT 133 X10^3/uL (150.0-450.0); RED BLOOD COUNT 3.83 X10^6/uL (4.7-6.0); RED CELL DISTRIBUTION WIDTH 14.4 % (11.6-16.5); WHITE BLOOD COUNT 5.1 X10^3/uL (3.6-10.0)
[2017-09-10] MEDS: HumuLIN R SUBCUT PRN ×4 (06:29→21:33)
[2017-09-10 06:33] LABS: ALANINE AMINOTRANSFERASE 31 Units/L (12-78); ALBUMIN 2.7 g/dL (3.4-5.0); ALKALINE PHOSPHATASE 67 Units/L (46-116); AMYLASE 18 Units/L (25-115); ASPARTATE AMINO TRANSFERASE 20 Units/L (15-37); BLOOD UREA NITROGEN 6 mg/dL (7-18); CALCIUM 8.5 mg/dL (8.5-10.1); CARBON DIOXIDE 26.5 mmol/L (21-32); CHLORIDE 102 mmol/L (98-107); COR CA(FOR HYPOALB) 9.5 mg/dL (8.5-10.1); COR NA(FOR HYPERGLY) 144 mmol/L (136-145); CREATININE 0.69 mg/dL (0.70-1.30); LIPASE 134 Units/L (73-393); SODIUM 139 mmol/L (136-145); TOTAL PROTEIN 6.8 g/dL (6.4-8.2); eGFR BLACK RACES > 60 (>60); eGFR NON BLACK RACES > 60 (>60)
[2017-09-10] MEDS ORDERED: K-RIDER 10 MEQ/NS 100 ML 10 MEQ/100 ML BAG IV PRN (06:39)
[2017-09-10] MEDS ORDERED: POTASSIUM CHL 40 MEQ/NS 0.45% 500 ML IV PRN (06:39)
[2017-09-10] MEDS ORDERED: POTASSIUM CHL 60 MEQ/NS 0.45% 500 ML IV PRN (06:39)
[2017-09-10] MEDS ORDERED: K-LYTE EFFERVESCENT PO PRN (06:39)
[2017-09-10] MEDS ORDERED: POTASSIUM CHLORIDE LIQ 20 MEQ UDC PO PRN (06:39)
[2017-09-10] MEDS: MAGNESIUM SULFATE 1 GM/100 mL PREMIX 1 GM/100 ML BAG IV PRN ×2 (09:04→10:09)
[2017-09-10] MEDS ORDERED: BUTT CREAM (COMPOUND) TOP PRN (17:31)
--- NOTE | 2017-09-10 18:38 | DR.H&P ---
H&P - History & Physical for Day of: H&P Date: 09/09/17 - Chief Complaint Chief Complaint: CONFUSION, WEAKNESS, NVD - Allergies Allergies/Adverse Reactions: Allergies Allergy/AdvReac Type Severity Reaction Status Date / Time No Known Drug Allergies Allergy Verified 08/15/17 11:34 - History of Present Illness History of Present Illness: 72 WM ER ADMIT AFTER PRESENTING WITH SPOUSE CO SEVERE WEAKNESS, CONFUSION, N/D/V. PT HAS HX OF ACUTE LIVER FAILURE DUE TO OBSTRUCTING PANCREATIC MASS WHICH HAS BEEN BIOPSIED, NEGATIVE FOR CARCINOMA. PT IS FOLLOWED BY DR ESPARZA AT [facility]. PT HAS PMH OF DM, CHF, COPD, OA, CVD. PT HAD CT HEAD AND ABDOMEN STABLE FOR ACUTE FINDINGS. SEVERE GERD NOTED. PT ADMITTED FOR TREATMENT AND EVALUATION - Past Medical History Past Medical History: Angina, Arthritis, CHF, Coronary Artery Disease, CVA, Diabetes, Dyslipidemia, GERD, Hypertension, Liver Disease, [place] - Past Surgical History Surgical History: Angioplasty/Stents, CABG/Valve Surgery, Cholecystectomy, Other Additional Surgical History: Patient has pacemaker. - Family History Family Medical History: Diabetes Mellitus, Cancer, Hypertension - Social History Does patient currently use any type of tobacco product: No Have you used tobacco products in the last 12 months: No Type of Tobacco Use: None Does any household member use tobacco: No Alcohol Use: None Drug Use: None - Medications Home Medications: Carbidopa-Levodopa 25/250 mg [SINEMET (Plain) 25/250 mg tab *] 1 tablet PO BID 09/10/17 [History Confirmed 09/10/17] Codeine Phosphate/Guaifenesin [Virtussin AC Liquid] 118 ml PO TID PRN 09/10/17 [ History Confirmed 09/10/17] Omeprazole [Omeprazole] 1 cap PO DAILY 09/10/17 [History Confirmed 09/10/17] - Review of Systems Constitutional: Weakness, Malaise Eyes: No Symptoms Reported ENT: No Symptoms Reported Respiratory: Shortness of Breath Cardiovascular: No Symptoms Reported Gastrointestinal: Nausea, Vomiting, Abdominal Pain, Diarrhea Genitourinary: No Symptoms Reported Musculoskeletal: Back Pain Skin: Jaundice Neurological: Weakness - Physical Exam Vital Signs: Temperature 97.6 F Pulse Rate [Left] 60 Pulse Rate 68 Respiratory Rate 20 Blood Pressure [Left Arm] 168/81 Blood Pressure [Right Arm] 148/72 Blood Pressure 135/72 O2 Sat by Pulse Oximetry 99 Oriented: Normal Eyes: Normal Ear: Normal Nose: Normal Throat: Normal Respiratory: RLL Diminished, LLL Diminished Cardiovascular: Normal, Other (PACER PERSENT). negative: Edema : Normal Auscultation: Bowel Sounds: Increased Palpation: Normal Tenderness: RUQ, LUQ, Epigastric Musculoskeletal: Back:Thoracic, Back:Lumbar Psychiatric: Normal Mood Description: Calm Speech Pattern: Appropriate - Assessment/Plan (1) Abdominal pain Qualifiers: Abdominal location: generalized Qualified Code(s): R10.84 - Generalized abdominal pain Status: Acute Plan: ADMIT, PAIN CONTROL. IV HYDRATION, RESUME HOME MEDS. BLOOD SUGAR CONTROL. I & OS. POTASSIUM REPLACEMENT, REPEAT AM LABS (2) Dehydration Status: Acute (3) Generalized weakness Status: Acute (4) Hypokalemia Status: Acute (5) Mental status alteration Qualifiers: Altered mental status type: transient alteration of awareness Qualified Code(s): R40.4 - Transient alteration of awareness Status: Acute (6) Left-sided weakness Status: Acute (7) Pancreatic mass Status: Acute (8) Diabetes mellitus Status: Chronic (9) GERD (gastroesophageal reflux disease) Status: Chronic (10) History of CVA (cerebrovascular accident) Status: Chronic
[2017-09-10] MEDS ORDERED: SNACK - Diabetic Appropriate PO SCH (20:00)
[2017-09-10] MEDS: RANEXA PO SCH (21:26)
[2017-09-10] MEDS: COREG TAB 3.125 MG PO SCH (21:26)
[2017-09-10] MEDS: ISOSORBIDE DINITRATE PO SCH (21:27)
[2017-09-10] MEDS: SINEMET (PLAIN) 25/250 MG PO SCH (21:27)
[2017-09-10] MEDS: PROTONIX TAB 40 MG PO SCH (21:27)
[2017-09-11] MEDS: NS + KCL 20 MEQ/L 1,000 ML IV SCH (05:26)
[2017-09-11] MEDS: HumuLIN R SUBCUT PRN ×2 (05:28→13:08)
[2017-09-11 06:27] LABS: BASOPHILS % (AUTO) 0.7 % (0.2-1.0); EOSINOPHILS # (AUTO) 0.1 x10^3/uL (0.0-0.2); EOSINOPHILS % (AUTO) 2.1 % (0.9-2.9); HEMOGLOBIN 11.5 g/dL (13.5-18.0); LYMPHOCYTES % (AUTO) 32.5 % (21.0-51.0); MEAN CORPUSCULAR HEMOGLOBIN 29.9 pg (27.0-34.0); MEAN CORPUSCULAR VOLUME 85.5 fL (80.0-100.0); MEAN PLATELET VOLUME 7.7 fL (7.4-11.0); MONOCYTES # (AUTO) 0.7 x10^3/uL (0.3-0.8); MONOCYTES % (AUTO) 11.4 % (0.0-13.0); NEUTROPHILS # (AUTO) 3.3 x10^3/uL (2.2-4.8); NEUTROPHILS % (AUTO) 53.3 % (42.0-75.0); PLATELET COUNT 147 X10^3/uL (150.0-450.0); RED BLOOD COUNT 3.86 X10^6/uL (4.7-6.0); RED CELL DISTRIBUTION WIDTH 14.3 % (11.6-16.5); WHITE BLOOD COUNT 6.2 X10^3/uL (3.6-10.0)
[2017-09-11 06:28] LABS: ALANINE AMINOTRANSFERASE 9 Units/L (12-78); ALBUMIN 2.5 g/dL (3.4-5.0); ALKALINE PHOSPHATASE 68 Units/L (46-116); ASPARTATE AMINO TRANSFERASE 22 Units/L (15-37); BLOOD UREA NITROGEN 7 mg/dL (7-18); CALCIUM 8.3 mg/dL (8.5-10.1); CHLORIDE 102 mmol/L (98-107); COR CA(FOR HYPOALB) 9.5 mg/dL (8.5-10.1); COR NA(FOR HYPERGLY) 139 mmol/L (136-145); CREATININE 0.73 mg/dL (0.70-1.30); MAGNESIUM 1.6 mg/dL (1.7-2.9); SODIUM 136 mmol/L (136-145); TOTAL PROTEIN 6.5 g/dL (6.4-8.2); eGFR BLACK RACES > 60 (>60); eGFR NON BLACK RACES > 60 (>60)
[2017-09-11] MEDS ORDERED: LASIX PO SCH (09:00)
[2017-09-11] MEDS ORDERED: MICRO K EXTEN CAP 10 MEQ PO SCH (09:00)
[2017-09-11] MEDS ORDERED: ASPIRIN EC 81 MG PO SCH (09:00)
[2017-09-11] MEDS ORDERED: FOLIC ACID TAB 1 MG PO SCH (09:00)
[2017-09-11] MEDS ORDERED: PriLOSEC PO SCH (09:00)
[2017-09-11] MEDS ORDERED: CELEXA PO SCH (09:00)
[2017-09-11] MEDS ORDERED: ARICEPT TAB 10 MG PO SCH (09:00)
[2017-09-11] MEDS: RANEXA PO SCH (10:15)
[2017-09-11] MEDS: COREG TAB 3.125 MG PO SCH (10:15)
[2017-09-11] MEDS: SINEMET (PLAIN) 25/250 MG PO SCH (10:15)
[2017-09-11] MEDS: PROTONIX TAB 40 MG PO SCH (10:15)
[2017-09-11] MEDS: ISOSORBIDE DINITRATE PO SCH (10:16)
[2017-09-11] MEDS ORDERED: K-LYTE EFFERVESCENT PO SCH (11:00)
[2017-09-11 16:59] VITALS: BP 106/65
== END 2017-09-11 16:30 | disposition home or self-care (01) ==
LOC: ER 21:08 → MED/SURG 23:16
PROVIDERS: ADMIT Internal Medicine; ATTEND Internal Medicine
DX: R40.4 Transient alteration of awareness (principal); E86.0 Dehydration; R53.1 Weakness; R11.2 Nausea with vomiting, unspecified; E87.6 Hypokalemia; R10.84 Generalized abdominal pain; I25.10 Atherosclerotic heart disease of native coronary artery without angina pectoris; I67.9 Cerebrovascular disease, unspecified; I50.9 Heart failure, unspecified; M19.90 Unspecified osteoarthritis, unspecified site; K86.9 Disease of pancreas, unspecified; K72.90 Hepatic failure, unspecified without coma; E11.9 Type 2 diabetes mellitus without complications; K21.9 Gastro-esophageal reflux disease without esophagitis
CPT/HCPCS: 36415; 70450; 74176; 80053; 81003; 82140; 82150; 83690; 83735; 85025; 94760; 96365; 99284; A4222; G0378; J1815

== ENCOUNTER 2017-11-05 07:46 | Inpatient (IN) ==
[2017-11-05] MEDS ORDERED: NS 1000 ML 1,000 ML ONE (08:10)
[2017-11-05] MEDS: NS 1000 ML 1,000 ML IV SCH ×3 (08:13→17:22)
[2017-11-05 08:26] LABS: BILIRUBIN,URINE 1+ (NEGATIVE); BLOOD/HEMOGLOBIN,URINE NEGATIVE (NEGATIVE); GLUCOSE, URINE 4+ (NEGATIVE); KETONES,URINE NEGATIVE (NEGATIVE); LEUKOCYTE ESTERASE ,URINE 1+ (NEGATIVE); NITRITES,URINE NEGATIVE (NEGATIVE); PROTEIN,URINE 2+ (NEGATIVE); UROBILINOGEN,URINE 3+ (NORMAL)
[2017-11-05 08:29] LABS: APPEARANCE,URINE CLEAR (CLEAR); COLOR,URINE AMBER (YELLOW)
[2017-11-05 08:33] LABS: BACTERIA,URINE NEGATIVE /HPF (NEGATIVE); RBC,URINE 0-2 /HPF (NONE SEEN); SQUAMOUS EPITHELIAL CELL,UR RARE /HPF (NEGATIVE)
[2017-11-05 08:34] LABS: MUCUS,URINE FEW /HPF (NEGATIVE)
--- NOTE | 2017-11-05 08:43 | CT ---
HISTORY: Altered mental status Study: CT head without contrast Comparison: 09/09/2017 Technique: Axial noncontrast images with coronal and sagittal reformats. Dose reduction procedures we re used with mA/kv adjusted for body size. Findings: The ventricles are normal in size shape and position. However there is relatively severe diffuse andrea ical and some cerebellar atrophy likely age related. There is some decreased attenuation in the periv entricular white matter suggestive of small vessel vascular disease. There is no evidence for recent or remote CVA, hemorrhage, mass lesion, or extra-axial fluid collection. There is opacification of th e right sphenoid sinus consistent with sinusitis. The calvarium is intact. IMPRESSION: No definite acute intracranial abnormality Atrophy likely age related Small vessel disease Right sphenoid sinusitis Reported By:
--- NOTE | 2017-11-05 08:49 | CT ---
History: Right lower lobe nodule, stage IV pancreatic cancer, comparison 10/29/2017 Study: CT chest with out IV contrast Findings: Fitness Manager film of the chest shows a left-sided dual lead cardiac pacer to be present. Postopera tive changes of median sternotomy are seen. Thin-section axial images were obtained from the lung apices through the diaphragm without IV contras t. The the visible thyroid lobes are without focal mass. No enlarged mediastinal, hilar, nor axillary lymphadenopathy is seen. No pericardial or pleural effusion is identified. There is a 0.5 cm nodule seen within the right mid lung best seen today on image 33 of series 4. This was not as well seen on the previous examination. The previously noted 5 mm nodule in the right base is not clearly seen today due to some opacity in t he area which may be due to atelectasis or focal consolidation. No additional discrete nodules are se en. The osseous structures are without acute findings. Scattered spondylosis is seen. No adrenal mass is identified. Impression: 1. No mediastinal, hilar, nor axillary lymphadenopathy. 2. 0.5 cm nodule right mid lung best seen on image 33 of series 4 3. The previously noted 5 mm nodule in the right base is not seen today. This may be due to the area being obscured by surrounding atelectasis or consolidation. CT follow-up in 3 months may be considere d for further delineation. Reported By:
--- NOTE | 2017-11-05 09:19 | DR.GENAD ---
HPI - PCP Primary Care Physician: sujit - Complaint/Symptoms Chief Complaint Doctors Comments: Patient presents with concerns of being confused as reported by family. Chief Complaint:: Patient family stated he has been getting confused with tea colored urine and jaundice eyes- has a history of stage 4 pancreatic CA with a stent. - Source History Provided: Family Member - Mode of Arrival Mode of Arrival: Wheelchair - Timing Onset of Chief Complaint: 11/04/17 PMH - PMH Past Medical History: Yes Past Medical History: Angina, Arthritis, CHF, Coronary Artery Disease, CVA, Diabetes, Dyslipidemia, GERD, Hypertension, Liver Disease, NC Past Surgical History: Yes Surgical History: Angioplasty/Stents, CABG/Valve Surgery, Cholecystectomy, Other - Family History History of Family Medical Conditions: Yes Family Medical History: Diabetes Mellitus, Cancer, Hypertension - Social History Does patient currently use any type of tobacco product: No Have you used tobacco products in the last 12 months: No Type of Tobacco Use: None Does any household member use tobacco: No Alcohol Use: None Do you use any recreational Drugs:: No Lives With: Family Lives Where: Home - infectious screening In the last 2 months have you had wt loss of >10#?: NO Have you had fever, night sweats or hemotysis?: No Have you traveled outside the country in the last 6 months?: No Isolation: Standard ROS - Review of Systems Eyes: No Symptoms Reported ENTM: No Symptoms Reported Respiratoy: No Symptoms Reported Cardiovascular: No Symptoms Reported Gastrointestinal/Abdominal: No Symptoms Reported Genitourinary: No Symptoms Reported Neurological: No Symptoms Reported Musculoskeletal: No Symptoms Reported Integumentary: No Symptoms Reported Hematologic/Lymphatic: No Symptoms Reported Endocrine: No Symptoms Reported Psychiatric: No Symptoms Reported All Other Systems: Reviewed and Negative - Vital Signs Vitals: Temperature 98.2 F Pulse Rate [Left Brachial] 99 Pulse Rate 106 Respiratory Rate 18 Blood Pressure [Left Arm] 135/70 Blood Pressure [Right Arm] 148/72 Blood Pressure 120/70 O2 Sat by Pulse Oximetry 98 Course - Treatment Treatment: Potassium, IVF - Reevaluation 1st: Improved ROR - Labs Reviewed Laboratory Results Reviewed?: Yes (low potassium, elevated glucose) Result Diagrams: 11/05/17 08:55 11/05/17 08:55 - XRAY XRAY Interpreted by: Radiologist (CT Brain:No definite acute intracranial abnormality, Atrophy likely age related, small vessel disease, right sphenoid sinusitis; CT Chest: No mediastinal,hilar, nor axillary lymphadenopathy. 0.5cm nodulle right mid lung best seen on image 33 of series 4; 3. The previously noted 5mm nodule in the right base is not seen today. This may be due to the area being obscured by surrounding atelectasis or consolidation. CT follow up in 3 months may be considered.) - Labs Reviewed Laboratory: WBC 12.1 X10^3/uL (3.6-10.0) H 11/05/17 08:55 RBC 4.45 X10^6/uL (4.7-6.0) L 11/05/17 08:55 Hgb 12.3 g/dL (13.5-18.0) L 11/05/17 08:55 Hct 36.1 % (42.0-54.0) L 11/05/17 08:55 MCV 81.1 fL (80.0-100.0) 11/05/17 08:55 MCH 27.6 pg (27.0-34.0) 11/05/17 08:55 MCHC 34.1 g/dL (33.0-35.0) 11/05/17 08:55 RDW 15.6 % (11.6-16.5) 11/05/17 08:55 Plt Count 170 X10^3/uL (150.0-450.0) 11/05/17 08:55 MPV 8.2 fL (7.4-11.0) 11/05/17 08:55 Neut % (Auto) 85.3 % (42.0-75.0) H 11/05/17 08:55 Lymph % (Auto) 5.3 % (21.0-51.0) L 11/05/17 08:55 [place] % (Auto) 8.9 % (0.0-13.0) 11/05/17 08:55 Eos % (Auto) 0.0 % (0.9-2.9) L 11/05/17 08:55 Baso % (Auto) 0.5 % (0.2-1.0) 11/05/17 08:55 Neut # (Auto) 10.3 x10^3/uL (2.2-4.8) H 11/05/17 08:55 Lymph # (Auto) 0.6 X10^3/uL (1.3-2.9) L 11/05/17 08:55 [place] # (Auto) 1.1 x10^3/uL (0.3-0.8) H 11/05/17 08:55 Eos # (Auto) 0.0 x10^3/uL (0.0-0.2) 11/05/17 08:55 Baso # (Auto) 0.1 X10^3/uL (0.0-0.1) 11/05/17 08:55 Absolute Nucleated RBC 0.0 /100WBC 11/05/17 08:55 Sodium 137 mmol/L (136-145) 11/05/17 08:55 Corrected Sodium 141 mmol/L (136-145) 11/05/17 08:55 Potassium 3.3 mmol/L (3.5-5.1) L 11/05/17 08:55 Chloride 98 mmol/L (98-107) 11/05/17 08:55 Carbon Dioxide 27.9 mmol/L (21-32) 11/05/17 08:55 BUN 8 mg/dL (7-18) 11/05/17 08:55 Creatinine 1.01 mg/dL (0.70-1.30) 11/05/17 08:55 Est GFR (MDRD) Af Amer > 60 (>60) 11/05/17 08:55 Est GFR (MDRD) Non-Af > 60 (>60) 11/05/17 08:55 Glucose 266 mg/dL (65-99) H 11/05/17 08:55 Calcium 8.6 mg/dL (8.5-10.1) 11/05/17 08:55 Corrected Calcium 9.7 mg/dL (8.5-10.1) 11/05/17 08:55 Total Bilirubin 4.40 mg/dL (0.2-1.0) H 11/05/17 08:55 AST 90 Units/L (15-37) H 11/05/17 08:55 ALT 132 Units/L (12-78) H 11/05/17 08:55 Alkaline Phosphatase 217 Units/L (46-116) H 11/05/17 08:55 Ammonia < 10 umol/L (11-32) L 11/05/17 08:55 Total Protein 6.5 g/dL (6.4-8.2) 11/05/17 08:55 Albumin 2.6 g/dL (3.4-5.0) L 11/05/17 08:55 Globulin 3.9 g/dL (2.5-4.5) 11/05/17 08:55 Albumin/Globulin Ratio 0.7 Ratio (1.1-2.1) L 11/05/17 08:55 Specimen Type Random urine 11/05/17 08:09 Urine Color [place] (YELLOW) 11/05/17 08:09 Urine Appearance Clear (CLEAR) 11/05/17 08:09 Urine pH 7.0 (5.0 - 8.0) 11/05/17 08:09 Ur Specific [place] 1.005 (1.000-1.030) 11/05/17 08:09 Urine Protein 2+ (NEGATIVE) 11/05/17 08:09 Urine Glucose (UA) 4+ (NEGATIVE) 11/05/17 08:09 Urine Ketones Negative (NEGATIVE) 11/05/17 08:09 Urine Occult Blood Negative (NEGATIVE) 11/05/17 08:09 Urine Nitrite Negative (NEGATIVE) 11/05/17 08:09 Urine Bilirubin 1+ (NEGATIVE) 11/05/17 08:09 Urine Urobilinogen 3+ (NORMAL) 11/05/17 08:09 Ur Leukocyte Esterase 1+ (NEGATIVE) 11/05/17 08:09 Urine RBC 0-2 /HPF (NONE SEEN) 11/05/17 08:09 Urine WBC 0-2 /HPF (NONE SEEN) 11/05/17 08:09 Ur Squamous Epith Cells Rare /HPF (NEGATIVE) 11/05/17 08:09 Urine Bacteria Negative /HPF (NEGATIVE) 11/05/17 08:09 Urine Mucus Few /HPF (NEGATIVE) 11/05/17 08:09 Ur Culture Indicated? No/not indicated 11/05/17 08:09 - Diagnosis Discharge Problem: Hypokalemia Sphenoid sinusitis Qualifiers: Chronicity: acute Recurrence: not specified as recurrent Qualified Code(s): J01.30 - Acute sphenoidal sinusitis, unspecified - Discharge Plan Condition: Stable - Follow ups/Referrals Follow ups/Referrals: NFD,None [Primary Care Provider] - 3 days - Instructions
[2017-11-05 09:22] LABS: ALANINE AMINOTRANSFERASE 132 Units/L (12-78); ALBUMIN 2.6 g/dL (3.4-5.0); ALKALINE PHOSPHATASE 217 Units/L (46-116); ASPARTATE AMINO TRANSFERASE 90 Units/L (15-37); BLOOD UREA NITROGEN 8 mg/dL (7-18); CALCIUM 8.6 mg/dL (8.5-10.1); CARBON DIOXIDE 27.9 mmol/L (21-32); CHLORIDE 98 mmol/L (98-107); COR CA(FOR HYPOALB) 9.7 mg/dL (8.5-10.1); COR NA(FOR HYPERGLY) 141 mmol/L (136-145); CREATININE 1.01 mg/dL (0.70-1.30); SODIUM 137 mmol/L (136-145); TOTAL PROTEIN 6.5 g/dL (6.4-8.2); eGFR NON BLACK RACES > 60 (>60)
[2017-11-05 09:31] LABS: BASOPHILS # (AUTO) 0.1 X10^3/uL (0.0-0.1); BASOPHILS % (AUTO) 0.5 % (0.2-1.0); HEMATOCRIT 36.1 % (42.0-54.0); HEMOGLOBIN 12.3 g/dL (13.5-18.0); LYMPHOCYTES # (AUTO) 0.6 X10^3/uL (1.3-2.9); LYMPHOCYTES % (AUTO) 5.3 % (21.0-51.0); MEAN CORPUSCULAR HEMOGLOBIN 27.6 pg (27.0-34.0); MEAN CORPUSCULAR HGB CONC 34.1 g/dL (33.0-35.0); MEAN CORPUSCULAR VOLUME 81.1 fL (80.0-100.0); MEAN PLATELET VOLUME 8.2 fL (7.4-11.0); MONOCYTES # (AUTO) 1.1 x10^3/uL (0.3-0.8); MONOCYTES % (AUTO) 8.9 % (0.0-13.0); NEUTROPHILS # (AUTO) 10.3 x10^3/uL (2.2-4.8); NEUTROPHILS % (AUTO) 85.3 % (42.0-75.0); PLATELET COUNT 170 X10^3/uL (150.0-450.0); RED BLOOD COUNT 4.45 X10^6/uL (4.7-6.0); RED CELL DISTRIBUTION WIDTH 15.6 % (11.6-16.5); WHITE BLOOD COUNT 12.1 X10^3/uL (3.6-10.0)
[2017-11-05] MEDS ORDERED: K-LYTE EFFERVESCENT PO ONE (09:48)
[2017-11-05] MEDS ORDERED: K-LYTE EFFERVESCENT ONE (09:49)
[2017-11-05] MEDS ORDERED: HumuLIN R SUBCUT PRN (09:50)
[2017-11-05] MEDS ORDERED: HumuLIN R ONE (09:55)
[2017-11-05] MEDS ORDERED: BUTT CREAM (COMPOUND) ONE (16:41)
[2017-11-05] MEDS: HumuLIN R SUBCUT PRN ×2 (18:44→22:00)
[2017-11-05] MEDS ORDERED: SNACK - Diabetic Appropriate PO SCH ×2 (20:00)
[2017-11-06] MEDS: SNACK - Diabetic Appropriate PO SCH ×2 (02:58→20:23)
[2017-11-06] MEDS: NS 1000 ML 1,000 ML IV SCH ×2 (04:57→19:50)
[2017-11-06 05:20] LABS: BASOPHILS % (AUTO) 0.3 % (0.2-1.0); HEMATOCRIT 35.3 % (42.0-54.0); HEMOGLOBIN 12.2 g/dL (13.5-18.0); LYMPHOCYTES % (AUTO) 11.2 % (21.0-51.0); MEAN CORPUSCULAR HEMOGLOBIN 27.7 pg (27.0-34.0); MEAN CORPUSCULAR HGB CONC 34.5 g/dL (33.0-35.0); MEAN CORPUSCULAR VOLUME 80.3 fL (80.0-100.0); MEAN PLATELET VOLUME 8.4 fL (7.4-11.0); MONOCYTES # (AUTO) 0.6 x10^3/uL (0.3-0.8); MONOCYTES % (AUTO) 6.4 % (0.0-13.0); NEUTROPHILS # (AUTO) 7.2 x10^3/uL (2.2-4.8); NEUTROPHILS % (AUTO) 82.1 % (42.0-75.0); PLATELET COUNT 163 X10^3/uL (150.0-450.0); RED BLOOD COUNT 4.39 X10^6/uL (4.7-6.0); RED CELL DISTRIBUTION WIDTH 15.9 % (11.6-16.5); WHITE BLOOD COUNT 8.7 X10^3/uL (3.6-10.0)
[2017-11-06 05:28] LABS: ALANINE AMINOTRANSFERASE 112 Units/L (12-78); ALBUMIN 2.5 g/dL (3.4-5.0); ALKALINE PHOSPHATASE 185 Units/L (46-116); ASPARTATE AMINO TRANSFERASE 89 Units/L (15-37); BLOOD UREA NITROGEN 7 mg/dL (7-18); CALCIUM 8.9 mg/dL (8.5-10.1); CARBON DIOXIDE 27.7 mmol/L (21-32); CHLORIDE 100 mmol/L (98-107); COR CA(FOR HYPOALB) 10.1 mg/dL (8.5-10.1); COR NA(FOR HYPERGLY) 139 mmol/L (136-145); CREATININE 0.83 mg/dL (0.70-1.30); SODIUM 138 mmol/L (136-145); TOTAL PROTEIN 7.1 g/dL (6.4-8.2); eGFR NON BLACK RACES > 60 (>60)
[2017-11-06] MEDS: TYLENOL 325 MG TAB PO PRN (05:30)
[2017-11-06] MEDS: MAGNESIUM SULFATE 1 GRAM/100 mL PREMIX 1 GM/100 ML BAG IV PRN ×6 (08:18→15:35)
[2017-11-06] MEDS: HumuLIN R SUBCUT PRN ×2 (12:04→17:00)
[2017-11-06] MEDS ORDERED: POTASSIUM CHLORIDE LIQ 20 MEQ UDC PO PRN (13:01)
[2017-11-06] MEDS ORDERED: POTASSIUM CHL 60 MEQ/NS 0.45% 500 ML IV PRN (13:01)
[2017-11-06 14:41] LABS: STOOL FOR WBC POSITIVE (NEGATIVE)
[2017-11-06] MEDS: ASPIRIN EC 81 MG PO SCH (15:07)
[2017-11-06] MEDS: CELEXA PO SCH (15:07)
[2017-11-06] MEDS: ANTIVERT TAB 25 MG PO SCH (15:08)
[2017-11-06] MEDS: LASIX PO SCH (15:08)
[2017-11-06] MEDS: ISOSORBIDE DINITRATE PO SCH ×2 (15:08→21:45)
[2017-11-06] MEDS: COREG TAB 3.125 MG PO SCH ×2 (15:08→21:46)
[2017-11-06] MEDS: FOLIC ACID TAB 1 MG PO SCH (15:08)
[2017-11-06] MEDS: SINEMET (PLAIN) 25/100 MG PO SCH ×2 (15:09→21:48)
[2017-11-06] MEDS: PROTONIX INJ 40 MG VIAL IVP SCH ×2 (15:09→21:46)
[2017-11-06] MEDS: PATIENT'S HOME MEDICATION PO SCH ×2 (15:10→21:48)
[2017-11-06] MEDS: K-LYTE EFFERVESCENT PO PRN (15:27)
[2017-11-06] MEDS: K-DUR TAB 20 MEQ PO SCH (15:29)
[2017-11-06] MEDS ORDERED: SNACK - Diabetic Appropriate PO SCH (20:00)
[2017-11-06] MEDS ORDERED: LEVEMIR SC SCH (21:00)
[2017-11-06] MEDS: MILK OF MAGNESIA PO SCH (21:44)
[2017-11-06] MEDS: ARICEPT TAB 10 MG PO SCH (21:45)
[2017-11-06] MEDS: COLACE CAP 100 MG PO SCH (21:46)
[2017-11-06] MEDS: NORCO 5/325 MG TAB PO PRN (21:49)
[2017-11-07] MEDS: XANAX PO PRN (00:16)
[2017-11-07] MEDS: NS 1000 ML 1,000 ML IV SCH ×3 (01:48→21:58)
[2017-11-07 06:23] LABS: BASOPHILS % (AUTO) 0.3 % (0.2-1.0); HEMATOCRIT 29.1 % (42.0-54.0); HEMOGLOBIN 10.3 g/dL (13.5-18.0); LYMPHOCYTES % (AUTO) 11.7 % (21.0-51.0); MEAN CORPUSCULAR HEMOGLOBIN 28.5 pg (27.0-34.0); MEAN CORPUSCULAR HGB CONC 35.6 g/dL (33.0-35.0); MEAN CORPUSCULAR VOLUME 80.1 fL (80.0-100.0); MEAN PLATELET VOLUME 8.8 fL (7.4-11.0); MONOCYTES # (AUTO) 0.9 x10^3/uL (0.3-0.8); MONOCYTES % (AUTO) 10.1 % (0.0-13.0); NEUTROPHILS # (AUTO) 6.9 x10^3/uL (2.2-4.8); NEUTROPHILS % (AUTO) 77.9 % (42.0-75.0); PLATELET COUNT 126 X10^3/uL (150.0-450.0); RED BLOOD COUNT 3.63 X10^6/uL (4.7-6.0); RED CELL DISTRIBUTION WIDTH 15.9 % (11.6-16.5); WHITE BLOOD COUNT 8.9 X10^3/uL (3.6-10.0)
[2017-11-07 06:33] LABS: BLOOD UREA NITROGEN 15 mg/dL (7-18); CALCIUM 8.4 mg/dL (8.5-10.1); CARBON DIOXIDE 23.3 mmol/L (21-32); CHLORIDE 99 mmol/L (98-107); COR NA(FOR HYPERGLY) 134 mmol/L (136-145); CREATININE 1.15 mg/dL (0.70-1.30); SODIUM 134 mmol/L (136-145); eGFR NON BLACK RACES > 60 (>60)
[2017-11-07] MEDS ORDERED: MAGNESIUM SULFATE 50% INJ ONE (07:29)
[2017-11-07] MEDS ORDERED: NS 100 ML IV 200 ML IV ONE (07:29)
[2017-11-07] MEDS: PROTONIX INJ 40 MG VIAL IVP SCH ×2 (08:45→22:12)
[2017-11-07] MEDS: ISOSORBIDE DINITRATE PO SCH ×2 (08:46→22:00)
[2017-11-07] MEDS: CELEXA PO SCH (08:46)
[2017-11-07] MEDS: ASPIRIN EC 81 MG PO SCH (08:46)
[2017-11-07] MEDS: LASIX PO SCH (08:47)
[2017-11-07] MEDS: COREG TAB 3.125 MG PO SCH ×2 (08:47→22:00)
[2017-11-07] MEDS: ANTIVERT TAB 25 MG PO SCH (08:47)
[2017-11-07] MEDS: FOLIC ACID TAB 1 MG PO SCH (08:47)
[2017-11-07] MEDS: K-DUR TAB 20 MEQ PO SCH (08:47)
[2017-11-07] MEDS: PATIENT'S HOME MEDICATION PO SCH ×2 (08:48→22:02)
[2017-11-07] MEDS: SINEMET (PLAIN) 25/100 MG PO SCH ×2 (08:48→22:03)
[2017-11-07 09:01] VITALS: BMI 26.1
[2017-11-07] MEDS: TYLENOL 325 MG TAB PO PRN (11:42)
[2017-11-07] MEDS ORDERED: METFORMIN 1000 MG PO SCH (13:30)
[2017-11-07 13:52] LABS: BASOPHILS % (AUTO) 0.6 % (0.2-1.0); HEMATOCRIT 29.9 % (42.0-54.0); HEMOGLOBIN 10.3 g/dL (13.5-18.0); LYMPHOCYTES # (AUTO) 0.7 X10^3/uL (1.3-2.9); LYMPHOCYTES % (AUTO) 10.1 % (21.0-51.0); MEAN CORPUSCULAR HEMOGLOBIN 27.8 pg (27.0-34.0); MEAN CORPUSCULAR HGB CONC 34.5 g/dL (33.0-35.0); MEAN CORPUSCULAR VOLUME 80.7 fL (80.0-100.0); MEAN PLATELET VOLUME 8.5 fL (7.4-11.0); MONOCYTES # (AUTO) 0.7 x10^3/uL (0.3-0.8); MONOCYTES % (AUTO) 9.8 % (0.0-13.0); NEUTROPHILS # (AUTO) 5.9 x10^3/uL (2.2-4.8); NEUTROPHILS % (AUTO) 79.5 % (42.0-75.0); PLATELET COUNT 110 X10^3/uL (150.0-450.0); RED CELL DISTRIBUTION WIDTH 15.9 % (11.6-16.5); WHITE BLOOD COUNT 7.4 X10^3/uL (3.6-10.0)
[2017-11-07] MEDS: MAGNESIUM SULFATE 1 GRAM/100 mL PREMIX 1 GM/100 ML BAG IV PRN ×2 (14:29→17:08)
[2017-11-07] MEDS ORDERED: ZADITOR EYE DROPS EACHEYE PRN (15:41)
[2017-11-07] MEDS ORDERED: GLUCOPHAGE ONE (17:30)
[2017-11-07] MEDS: GLUCOPHAGE PO SCH (17:35)
[2017-11-07] MEDS: ROCEPHIN 1 GRAM IV PREMIX 1 G/50 ML IV.SOLN. IV SCH (17:36)
[2017-11-07] MEDS: SNACK - Diabetic Appropriate PO SCH (20:30)
[2017-11-07] MEDS ORDERED: LEVEMIR SC SCH (21:00)
[2017-11-07] MEDS: COLACE CAP 100 MG PO SCH (22:00)
[2017-11-07] MEDS: ARICEPT TAB 10 MG PO SCH (22:00)
[2017-11-07] MEDS: MILK OF MAGNESIA PO SCH (22:01)
[2017-11-07] MEDS: LOVENOX INJ 30 MG SYR SC SCH (22:11)
[2017-11-08] MEDS ORDERED: TYLENOL SUPP 650 MG PR PRN (04:26)
[2017-11-08] MEDS ORDERED: TYLENOL SUPP 325 MG ONE (04:30)
[2017-11-08 05:44] LABS: BLOOD UREA NITROGEN 23 mg/dL (7-18); CARBON DIOXIDE 19.3 mmol/L (21-32); CHLORIDE 103 mmol/L (98-107); CREATININE 1.21 mg/dL (0.70-1.30); SODIUM 137 mmol/L (136-145); eGFR NON BLACK RACES > 60 (>60)
[2017-11-08 05:58] LABS: MAGNESIUM 2.1 mg/dL (1.7-2.9)
[2017-11-08] MEDS: GLUCOPHAGE PO SCH ×2 (06:20→17:52)
[2017-11-08 06:23] LABS: BASOPHILS % (AUTO) 0.2 % (0.2-1.0); EOSINOPHILS % (AUTO) 0.1 % (0.9-2.9); HEMATOCRIT 30.4 % (42.0-54.0); HEMOGLOBIN 10.4 g/dL (13.5-18.0); LYMPHOCYTES # (AUTO) 0.9 X10^3/uL (1.3-2.9); MEAN CORPUSCULAR HEMOGLOBIN 27.3 pg (27.0-34.0); MEAN CORPUSCULAR HGB CONC 34.1 g/dL (33.0-35.0); MEAN CORPUSCULAR VOLUME 80.2 fL (80.0-100.0); MEAN PLATELET VOLUME 9.1 fL (7.4-11.0); MONOCYTES # (AUTO) 0.7 x10^3/uL (0.3-0.8); MONOCYTES % (AUTO) 9.5 % (0.0-13.0); NEUTROPHILS # (AUTO) 5.8 x10^3/uL (2.2-4.8); NEUTROPHILS % (AUTO) 78.2 % (42.0-75.0); PLATELET COUNT 115 X10^3/uL (150.0-450.0); WHITE BLOOD COUNT 7.4 X10^3/uL (3.6-10.0)
[2017-11-08 06:54] LABS: PLATELET MORPHOLOGY COMMENT NORMAL (NORMAL)
[2017-11-08] MEDS: PATIENT'S HOME MEDICATION PO SCH ×2 (09:40→22:57)
[2017-11-08] MEDS: ANTIVERT TAB 25 MG PO SCH (09:40)
[2017-11-08] MEDS: CELEXA PO SCH (09:40)
[2017-11-08] MEDS: COREG TAB 3.125 MG PO SCH ×2 (09:40→22:43)
[2017-11-08] MEDS: ASPIRIN EC 81 MG PO SCH (09:40)
[2017-11-08] MEDS: LASIX PO SCH (09:41)
[2017-11-08] MEDS: K-DUR TAB 20 MEQ PO SCH (09:41)
[2017-11-08] MEDS: FOLIC ACID TAB 1 MG PO SCH (09:41)
[2017-11-08] MEDS: SINEMET (PLAIN) 25/100 MG PO SCH ×2 (09:41→22:57)
[2017-11-08] MEDS: ISOSORBIDE DINITRATE PO SCH ×2 (09:42→22:43)
[2017-11-08] MEDS: DUONEB 0.5 MG/3 MG NEB PRN (09:43)
[2017-11-08] MEDS: LOVENOX INJ 30 MG SYR SC SCH ×2 (09:47→22:44)
[2017-11-08] MEDS: PROTONIX INJ 40 MG VIAL IVP SCH ×2 (09:48→22:57)
[2017-11-08] MEDS: ROCEPHIN 1 GRAM IV PREMIX 1 G/50 ML IV.SOLN. IV SCH (09:48)
[2017-11-08] MEDS: NS 1000 ML 1,000 ML IV SCH ×2 (12:46→22:55)
[2017-11-08 13:49] LABS: ALANINE AMINOTRANSFERASE 39 Units/L (12-78); ALBUMIN 1.9 g/dL (3.4-5.0); ALKALINE PHOSPHATASE 145 Units/L (46-116); ASPARTATE AMINO TRANSFERASE 59 Units/L (15-37); COR CA(FOR HYPOALB) 10.1 mg/dL (8.5-10.1); TOTAL PROTEIN 5.6 g/dL (6.4-8.2)
[2017-11-08 13:49] LABS: ALANINE AMINOTRANSFERASE 65 Units/L (12-78); ALBUMIN 1.6 g/dL (3.4-5.0); ALKALINE PHOSPHATASE 142 Units/L (46-116); ASPARTATE AMINO TRANSFERASE 79 Units/L (15-37); COR CA(FOR HYPOALB) 10.9 mg/dL (8.5-10.1); TOTAL PROTEIN 5.7 g/dL (6.4-8.2)
--- NOTE | 2017-11-08 17:58 | PCM.PROG ---
Progress Note - Progress Note for Day of Date: 11/08/17 - Subjective Subjective: 72 WM ER ADMISSION AFTER PRESENTING WITH CO AMS DUE TO COMPLICATIONS WITH STAGE IV PANCREATIC CANCER. PT HAS DIFFUSE JAUNDICE AND POOR RESPONSIVENESS. PT HAS FAMILY AT BEDSIDE. PT DID OPEN EYES TO VERBAL STIMULI, HAS VENTI MASK ON THIS AM, WITH IMPROVED RESP DISTRESS WITH MASK. PT STATES HE DID NOT WANT TO BE ON LIFE SUPPORT. FAMILY AGREES FOR COMFORT MEASURE AND DISCUSSED HOSPICE CONSULT, ORDER FOR DNR. PT DENIES PAIN THIS AM. PT SPIKED TEMP DURING THE NIGHT, BLOOD CULTURES POSITIVE FOR GRAM NEGATIVE RODS, CURRENTLY ON IV ATBX THERAPY. - Past Medical Family Social History Past Med/Fam/Surg Hx: No changes since H&P Allergies: Allergies No Known Drug Allergies Allergy (Verified 11/05/17 07:56) - Review of Systems ROS: No change since H&P - Vital Signs and I&O's Vital Signs: Temperature 97.6 F Pulse Rate [Right Brachial] 72 Pulse Rate [Left Brachial] 66 Pulse Rate 68 Respiratory Rate 22 Blood Pressure [Left Arm] 124/60 Blood Pressure [Right Arm] 93/57 Blood Pressure 120/70 O2 Sat by Pulse Oximetry 96 Intake and Output: Intake & Output 11/06/17 11/07/17 11/08/17 11/09/17 11:59 11:59 11:59 11:59 Intake Total 1380 / 1380 1763 / 1763 1054 / 1054 50 / 50 Output Total 975 / 975 3100 / 3100 1500 / 1500 500 / 500 Balance 405 / 405 -1337 / -1337 -446 / -446 -450 / -450 - Physical Exam Oriented: Person Eyes: Other (SCLERA JAUNDICE) Ear: Normal Nose: Normal Throat: Dry Respiratory: Diminished Cardiovascular: Tachycardia, Edema : Normal Auscultation: Bowel Sounds: Decreased Palpation: Spleen Enlarged, Liver Enlarged Tenderness: Diffuse Skin: Decreased Turgur, Other (SEVERE DIFFUSE JAUNDICE) Musculoskeletal: Motor Deficit, Instability Mood Description: Sad Affect: Quiet Speech Pattern: Delayed - Laboratory and Diagnostics Result Diagrams: 11/08/17 04:35 11/08/17 04:35 Labs: 11/07/17 13:54 Urine,Clean Catch Urine Culture - Preliminary 11/06/17 13:35 Stool Stool Culture - Final 11/06/17 13:35 Stool - Final 11/06/17 04:41 Blood Blood Culture - Final Klebsiella Pneumoniae 11/06/17 03:40 Blood Blood Culture - Final Klebsiella Pneumoniae Laboratory WBC 7.4 X10^3/uL (3.6-10.0) 11/08/17 04:35 RBC 3.80 X10^6/uL (4.7-6.0) L 11/08/17 04:35 Hgb 10.4 g/dL (13.5-18.0) L 11/08/17 04:35 Hct 30.4 % (42.0-54.0) L 11/08/17 04:35 MCV 80.2 fL (80.0-100.0) 11/08/17 04:35 MCH 27.3 pg (27.0-34.0) 11/08/17 04:35 MCHC 34.1 g/dL (33.0-35.0) 11/08/17 04:35 RDW 16.0 % (11.6-16.5) 11/08/17 04:35 Plt Count 115 X10^3/uL (150.0-450.0) L 11/08/17 04:35 Plt Count Comment Decreased (ADEQUATE) 11/08/17 04:35 MPV 9.1 fL (7.4-11.0) 11/08/17 04:35 Neut % (Auto) 78.2 % (42.0-75.0) H 11/08/17 04:35 Lymph % (Auto) 12.0 % (21.0-51.0) L 11/08/17 04:35 [place] % (Auto) 9.5 % (0.0-13.0) 11/08/17 04:35 Eos % (Auto) 0.1 % (0.9-2.9) L 11/08/17 04:35 Baso % (Auto) 0.2 % (0.2-1.0) 11/08/17 04:35 Neut # (Auto) 5.8 x10^3/uL (2.2-4.8) H 11/08/17 04:35 Lymph # (Auto) 0.9 X10^3/uL (1.3-2.9) L 11/08/17 04:35 [place] # (Auto) 0.7 x10^3/uL (0.3-0.8) 11/08/17 04:35 Eos # (Auto) 0.0 x10^3/uL (0.0-0.2) 11/08/17 04:35 Baso # (Auto) 0.0 X10^3/uL (0.0-0.1) 11/08/17 04:35 Absolute Nucleated RBC 0.1 /100WBC 11/08/17 04:35 Total Counted 100 11/08/17 04:35 Neutrophils % (Manual) 76 % (39-76) 11/08/17 04:35 Lymphocytes % (Manual) 20 % (13-43) 11/08/17 04:35 Monocytes % (Manual) 4 % (4-9) 11/08/17 04:35 Plt Morphology Comment Normal (NORMAL) 11/08/17 04:35 RBC Morphology Normal (NORMAL) 11/08/17 04:35 Sodium 137 mmol/L (136-145) 11/08/17 04:35 Corrected Sodium TNP 11/08/17 04:35 Potassium 3.6 mmol/L (3.5-5.1) 11/08/17 04:35 Chloride 103 mmol/L (98-107) 11/08/17 04:35 Carbon Dioxide 19.3 mmol/L (21-32) L 11/08/17 04:35 BUN 23 mg/dL (7-18) H 11/08/17 04:35 Creatinine 1.21 mg/dL (0.70-1.30) 11/08/17 04:35 Est GFR (MDRD) Af Amer > 60 (>60) 11/08/17 04:35 Est GFR (MDRD) Non-Af > 60 (>60) 11/08/17 04:35 Glucose 85 mg/dL (65-99) 11/08/17 04:35 POC Glucose (mg/dL) 95 mg/dL (65-99) 11/08/17 05:37 Calcium 9.0 mg/dL (8.5-10.1) 11/08/17 04:35 Corrected Calcium 10.9 mg/dL (8.5-10.1) H 11/08/17 04:35 Magnesium 2.1 mg/dL (1.7-2.9) 11/08/17 04:35 Total Bilirubin 6.90 mg/dL (0.2-1.0) H 11/08/17 04:35 AST 79 Units/L (15-37) H 11/08/17 04:35 ALT 65 Units/L (12-78) 11/08/17 04:35 Alkaline Phosphatase 142 Units/L (46-116) H 11/08/17 04:35 Ammonia < 10 umol/L (11-32) L 11/05/17 08:55 Total Protein 5.7 g/dL (6.4-8.2) L 11/08/17 04:35 Albumin 1.6 g/dL (3.4-5.0) L 11/08/17 04:35 Globulin 4.1 g/dL (2.5-4.5) 11/08/17 04:35 Albumin/Globulin Ratio 0.4 Ratio (1.1-2.1) L 11/08/17 04:35 Specimen Type Random urine 11/05/17 08:09 Urine Color [place] (YELLOW) 11/05/17 08:09 Urine Appearance Clear (CLEAR) 11/05/17 08:09 Urine pH 7.0 (5.0 - 8.0) 11/05/17 08:09 Ur Specific [place] 1.005 (1.000-1.030) 11/05/17 08:09 Urine Protein 2+ (NEGATIVE) 11/05/17 08:09 Urine Glucose (UA) 4+ (NEGATIVE) 11/05/17 08:09 Urine Ketones Negative (NEGATIVE) 11/05/17 08:09 Urine Occult Blood Negative (NEGATIVE) 11/05/17 08:09 Urine Nitrite Negative (NEGATIVE) 11/05/17 08:09 Urine Bilirubin 1+ (NEGATIVE) 11/05/17 08:09 Urine Urobilinogen 3+ (NORMAL) 11/05/17 08:09 Ur Leukocyte Esterase 1+ (NEGATIVE) 11/05/17 08:09 Urine RBC 0-2 /HPF (NONE SEEN) 11/05/17 08:09 Urine WBC 0-2 /HPF (NONE SEEN) 11/05/17 08:09 Ur Squamous Epith Cells Rare /HPF (NEGATIVE) 11/05/17 08:09 Urine Bacteria Negative /HPF (NEGATIVE) 11/05/17 08:09 Urine Mucus Few /HPF (NEGATIVE) 11/05/17 08:09 Ur Culture Indicated? No/not indicated 11/05/17 08:09 Stool for White Cells Positive (NEGATIVE) A 11/06/17 13:37 Stl C. diff Tox B Gene Negative (NEGATIVE) 11/06/17 13:36 Stl C. diff [id number] Negative (NEGATIVE) 11/06/17 13:36 - Plan (1) Pancreatic cancer Status: Acute Plan: SUPPORTIVE CARE, COMFORT MEASURES. CONSULT BUD HOSPICE. RESP THERAPY PAIN CONTROL, NAUSEA CONTROL. IV ROCEPHIN, CULTURES PENDING (2) Fever Status: Acute (3) Pancreatic mass Status: Acute (4) Mental status alteration Status: Acute Qualifiers: Altered mental status type: transient alteration of awareness Qualified Code(s): R40.4 - Transient alteration of awareness (5) Generalized weakness Status: Acute (6) Hypertension Status: Chronic Qualifiers: Hypertension type: essential hypertension Qualified Code(s): I10 - Essential (primary) hypertension (7) Diabetes type 2, uncontrolled Status: Chronic (8) History of CVA (cerebrovascular accident) Status: Chronic
[2017-11-08] MEDS: ARICEPT TAB 10 MG PO SCH (22:42)
[2017-11-08] MEDS: SNACK - Diabetic Appropriate PO SCH (22:42)
[2017-11-08] MEDS: COLACE CAP 100 MG PO SCH (22:43)
[2017-11-08] MEDS: MILK OF MAGNESIA PO SCH (22:44)
[2017-11-09 05:36] LABS: BASOPHILS % (AUTO) 0.6 % (0.2-1.0); EOSINOPHILS % (AUTO) 0.6 % (0.9-2.9); HEMATOCRIT 30.1 % (42.0-54.0); HEMOGLOBIN 10.2 g/dL (13.5-18.0); LYMPHOCYTES # (AUTO) 1.1 X10^3/uL (1.3-2.9); LYMPHOCYTES % (AUTO) 15.3 % (21.0-51.0); MEAN CORPUSCULAR HEMOGLOBIN 27.5 pg (27.0-34.0); MEAN CORPUSCULAR HGB CONC 34.1 g/dL (33.0-35.0); MEAN CORPUSCULAR VOLUME 80.7 fL (80.0-100.0); MEAN PLATELET VOLUME 8.4 fL (7.4-11.0); MONOCYTES # (AUTO) 0.8 x10^3/uL (0.3-0.8); MONOCYTES % (AUTO) 10.8 % (0.0-13.0); NEUTROPHILS # (AUTO) 5.4 x10^3/uL (2.2-4.8); NEUTROPHILS % (AUTO) 72.7 % (42.0-75.0); PLATELET COUNT 147 X10^3/uL (150.0-450.0); RED BLOOD COUNT 3.73 X10^6/uL (4.7-6.0); RED CELL DISTRIBUTION WIDTH 16.2 % (11.6-16.5); WHITE BLOOD COUNT 7.4 X10^3/uL (3.6-10.0)
[2017-11-09 05:54] LABS: ALANINE AMINOTRANSFERASE 60 Units/L (12-78); ALBUMIN 1.6 g/dL (3.4-5.0); ALKALINE PHOSPHATASE 131 Units/L (46-116); ASPARTATE AMINO TRANSFERASE 61 Units/L (15-37); BLOOD UREA NITROGEN 19 mg/dL (7-18); CALCIUM 9.3 mg/dL (8.5-10.1); CHLORIDE 107 mmol/L (98-107); COR CA(FOR HYPOALB) 11.2 mg/dL (8.5-10.1); COR NA(FOR HYPERGLY) 143 mmol/L (136-145); CREATININE 0.73 mg/dL (0.70-1.30); SODIUM 142 mmol/L (136-145); eGFR NON BLACK RACES > 60 (>60)
[2017-11-09] MEDS: GLUCOPHAGE PO SCH ×2 (06:15→16:20)
[2017-11-09] MEDS: DUONEB 0.5 MG/3 MG NEB PRN ×3 (09:00→16:10)
[2017-11-09] MEDS: LOVENOX INJ 30 MG SYR SC SCH ×2 (09:14→21:10)
[2017-11-09] MEDS: ROCEPHIN 1 GRAM IV PREMIX 1 G/50 ML IV.SOLN. IV SCH (09:16)
[2017-11-09] MEDS: PROTONIX INJ 40 MG VIAL IVP SCH ×2 (09:16→21:10)
[2017-11-09] MEDS: ANTIVERT TAB 25 MG PO SCH (09:42)
[2017-11-09] MEDS: ASPIRIN EC 81 MG PO SCH (09:43)
[2017-11-09] MEDS: LASIX PO SCH (09:43)
[2017-11-09] MEDS: SINEMET (PLAIN) 25/100 MG PO SCH ×2 (09:43→21:34)
[2017-11-09] MEDS: K-DUR TAB 20 MEQ PO SCH (09:43)
[2017-11-09] MEDS: CELEXA PO SCH (09:43)
[2017-11-09] MEDS: COREG TAB 3.125 MG PO SCH ×2 (09:43→21:33)
[2017-11-09] MEDS: PATIENT'S HOME MEDICATION PO SCH ×2 (09:43→21:30)
[2017-11-09] MEDS: FOLIC ACID TAB 1 MG PO SCH (09:44)
[2017-11-09] MEDS: ISOSORBIDE DINITRATE PO SCH ×2 (09:44→21:33)
[2017-11-09] MEDS: NS 1000 ML 1,000 ML IV SCH ×2 (11:41→21:33)
[2017-11-09] MEDS: HumuLIN R SUBCUT PRN ×2 (16:38→21:13)
[2017-11-09] MEDS: LEVAQUIN PREMIX IV 750 MG 750 MG/150 ML BAG IV SCH ×2 (18:46→21:32)
[2017-11-09] MEDS ORDERED: CONSULT PHARMACY - ANTIBIOTIC XX SCH (19:00)
[2017-11-09] MEDS: ARICEPT TAB 10 MG PO SCH (21:33)
[2017-11-09] MEDS: COLACE CAP 100 MG PO SCH (21:33)
[2017-11-09] MEDS: SNACK - Diabetic Appropriate PO SCH (21:33)
[2017-11-09] MEDS: MILK OF MAGNESIA PO SCH (21:34)
[2017-11-10] MEDS ORDERED: GLUCOPHAGE ONE (05:32)
[2017-11-10] MEDS: GLUCOPHAGE PO SCH ×2 (06:14→16:28)
[2017-11-10] MEDS: NS 1000 ML 1,000 ML IV SCH ×2 (06:14→21:05)
[2017-11-10 06:17] LABS: ALANINE AMINOTRANSFERASE 21 Units/L (12-78); ALBUMIN 1.4 g/dL (3.4-5.0); ALKALINE PHOSPHATASE 130 Units/L (46-116); ASPARTATE AMINO TRANSFERASE 42 Units/L (15-37); BLOOD UREA NITROGEN 13 mg/dL (7-18); CARBON DIOXIDE 24.6 mmol/L (21-32); CHLORIDE 106 mmol/L (98-107); COR CA(FOR HYPOALB) 11.1 mg/dL (8.5-10.1); CREATININE 0.63 mg/dL (0.70-1.30); SODIUM 140 mmol/L (136-145); TOTAL PROTEIN 5.7 g/dL (6.4-8.2); eGFR NON BLACK RACES > 60 (>60)
[2017-11-10 06:23] LABS: BASOPHILS % (AUTO) 0.2 % (0.2-1.0); EOSINOPHILS # (AUTO) 0.1 x10^3/uL (0.0-0.2); EOSINOPHILS % (AUTO) 1.4 % (0.9-2.9); HEMATOCRIT 28.2 % (42.0-54.0); HEMOGLOBIN 9.7 g/dL (13.5-18.0); LYMPHOCYTES # (AUTO) 1.2 X10^3/uL (1.3-2.9); LYMPHOCYTES % (AUTO) 20.9 % (21.0-51.0); MEAN CORPUSCULAR HEMOGLOBIN 27.6 pg (27.0-34.0); MEAN CORPUSCULAR HGB CONC 34.3 g/dL (33.0-35.0); MEAN CORPUSCULAR VOLUME 80.5 fL (80.0-100.0); MONOCYTES # (AUTO) 0.8 x10^3/uL (0.3-0.8); MONOCYTES % (AUTO) 13.1 % (0.0-13.0); NEUTROPHILS # (AUTO) 3.7 x10^3/uL (2.2-4.8); NEUTROPHILS % (AUTO) 64.4 % (42.0-75.0); PLATELET COUNT 154 X10^3/uL (150.0-450.0); RED CELL DISTRIBUTION WIDTH 16.1 % (11.6-16.5); WHITE BLOOD COUNT 5.8 X10^3/uL (3.6-10.0)
[2017-11-10] MEDS: K-RIDER 10 MEQ/NS 100 ML 10 MEQ/100 ML BAG IV PRN ×6 (07:03→14:01)
[2017-11-10] MEDS: ROCEPHIN 1 GRAM IV PREMIX 1 G/50 ML IV.SOLN. IV SCH (08:22)
[2017-11-10] MEDS: PROTONIX INJ 40 MG VIAL IVP SCH ×2 (09:16→21:06)
[2017-11-10] MEDS: LOVENOX INJ 30 MG SYR SC SCH ×2 (09:17→21:14)
[2017-11-10] MEDS: ASPIRIN EC 81 MG PO SCH (09:31)
[2017-11-10] MEDS: SINEMET (PLAIN) 25/100 MG PO SCH ×2 (09:31→22:29)
[2017-11-10] MEDS: ANTIVERT TAB 25 MG PO SCH (09:31)
[2017-11-10] MEDS: PATIENT'S HOME MEDICATION PO SCH ×2 (09:31→22:29)
[2017-11-10] MEDS: LASIX PO SCH (09:32)
[2017-11-10] MEDS: CELEXA PO SCH (09:32)
[2017-11-10] MEDS: K-DUR TAB 20 MEQ PO SCH (09:32)
[2017-11-10] MEDS: FOLIC ACID TAB 1 MG PO SCH (09:32)
[2017-11-10] MEDS: COREG TAB 3.125 MG PO SCH ×2 (09:32→22:27)
[2017-11-10] MEDS: ISOSORBIDE DINITRATE PO SCH ×2 (09:32→22:27)
[2017-11-10] MEDS: DUONEB 0.5 MG/3 MG NEB PRN (12:20)
[2017-11-10] MEDS ORDERED: XYLOCAINE-MPF 1% ONE (14:24)
[2017-11-10] MEDS: MAGNESIUM SULFATE 1 GRAM/100 mL PREMIX 1 GM/100 ML BAG IV PRN ×2 (16:27→17:28)
--- NOTE | 2017-11-10 16:41 | RAD ---
History: PICC line placement Study: Chest AP portable Findings: AP portable examination of chest is obtained and comparison made to the previous study of 0 11/07/2017. Heart and mediastinal structures are unchanged in appearance with sternal metallic sutures mediastinal clips and permanent right-sided cardiac pacemaker again noted. There has been interval p lacement of a left arm PICC line with the tip extending into the left internal jugular vein. Impression: PICC position as described. Reported By:
--- NOTE | 2017-11-10 16:52 | DR.UPDATE ---
H&P Update History and Physical Update: History and Physical reviewed and patient examined. Changes noted: NO Yes with the following:Agree with H&P. 72yo WM h/o pancreatic CA stage4, CAD, PM, requires long tem Abx. Will p;kim PICC Procedures (ALL) - Central Line Placement PCM.CLCO: written consent Time out performed: Yes Patient placed pm monitor/pulse ox: Yes MD prep: mask, gown, gloves, other Centrial line prep: chlorhexidine scrub Local anesthsia used: lidocane 1% Ultrasound used for placement: Yes (left basilic and cephalic veins identified) Central line lumen ininserted: double (5Fr powerport. trimmed to 42cm, 10cm exposed) Post procedure: all ports aspirated, flushed,capped, sterile dressing applied Post procedure xray: other (CXR reveals tip migrating up left IJ. catheter removed. will try 11/11.) Patient tolerated procedure: Yes Complications: none, catheter malposition (catheter removed. multiple sticks/ attempts, pt family agrees to wait until next day to reattempt.)
[2017-11-10] MEDS: XANAX PO PRN (17:03)
[2017-11-10] MEDS: HumuLIN R SUBCUT PRN ×2 (17:31→21:15)
[2017-11-10] MEDS: SNACK - Diabetic Appropriate PO SCH (21:04)
[2017-11-10] MEDS: LEVAQUIN PREMIX IV 750 MG 750 MG/150 ML BAG IV SCH (21:05)
[2017-11-10] MEDS: MILK OF MAGNESIA PO SCH (21:19)
[2017-11-10] MEDS: COLACE CAP 100 MG PO SCH (22:27)
[2017-11-10] MEDS: ARICEPT TAB 10 MG PO SCH (22:27)
[2017-11-11] MEDS: GLUCOPHAGE PO SCH ×2 (06:10→16:00)
[2017-11-11 06:36] LABS: BASOPHILS % (AUTO) 0.6 % (0.2-1.0); EOSINOPHILS # (AUTO) 0.1 x10^3/uL (0.0-0.2); EOSINOPHILS % (AUTO) 1.5 % (0.9-2.9); HEMATOCRIT 29.3 % (42.0-54.0); HEMOGLOBIN 10.1 g/dL (13.5-18.0); LYMPHOCYTES # (AUTO) 1.4 X10^3/uL (1.3-2.9); MEAN CORPUSCULAR HEMOGLOBIN 27.5 pg (27.0-34.0); MEAN CORPUSCULAR HGB CONC 34.6 g/dL (33.0-35.0); MEAN CORPUSCULAR VOLUME 79.4 fL (80.0-100.0); MEAN PLATELET VOLUME 7.7 fL (7.4-11.0); MONOCYTES % (AUTO) 15.2 % (0.0-13.0); NEUTROPHILS # (AUTO) 3.8 x10^3/uL (2.2-4.8); NEUTROPHILS % (AUTO) 59.7 % (42.0-75.0); PLATELET COUNT 189 X10^3/uL (150.0-450.0); RED BLOOD COUNT 3.69 X10^6/uL (4.7-6.0); RED CELL DISTRIBUTION WIDTH 16.3 % (11.6-16.5); WHITE BLOOD COUNT 6.3 X10^3/uL (3.6-10.0)
[2017-11-11 06:45] LABS: ALANINE AMINOTRANSFERASE 45 Units/L (12-78); ALBUMIN 1.6 g/dL (3.4-5.0); ALKALINE PHOSPHATASE 172 Units/L (46-116); ASPARTATE AMINO TRANSFERASE 42 Units/L (15-37); BLOOD UREA NITROGEN 7 mg/dL (7-18); CALCIUM 8.8 mg/dL (8.5-10.1); CARBON DIOXIDE 25.8 mmol/L (21-32); CHLORIDE 105 mmol/L (98-107); COR CA(FOR HYPOALB) 10.7 mg/dL (8.5-10.1); COR NA(FOR HYPERGLY) 140 mmol/L (136-145); CREATININE 0.68 mg/dL (0.70-1.30); MAGNESIUM 1.6 mg/dL (1.7-2.9); SODIUM 139 mmol/L (136-145); TOTAL PROTEIN 6.2 g/dL (6.4-8.2); eGFR NON BLACK RACES > 60 (>60)
[2017-11-11] MEDS: POTASSIUM CHL 40 MEQ/NS 0.45% 500 ML IV PRN (07:17)
[2017-11-11] MEDS: ANTIVERT TAB 25 MG PO SCH (10:02)
[2017-11-11] MEDS: PATIENT'S HOME MEDICATION PO SCH (10:02)
[2017-11-11] MEDS: K-DUR TAB 20 MEQ PO SCH (10:03)
[2017-11-11] MEDS: CELEXA PO SCH (10:03)
[2017-11-11] MEDS: SINEMET (PLAIN) 25/100 MG PO SCH (10:03)
[2017-11-11] MEDS: LASIX PO SCH (10:03)
[2017-11-11] MEDS: FOLIC ACID TAB 1 MG PO SCH (10:04)
[2017-11-11] MEDS: ISOSORBIDE DINITRATE PO SCH ×2 (10:04→21:35)
[2017-11-11] MEDS: COREG TAB 3.125 MG PO SCH ×2 (10:04→21:35)
[2017-11-11] MEDS: ASPIRIN EC 81 MG PO SCH (10:04)
[2017-11-11] MEDS: LOVENOX INJ 30 MG SYR SC SCH ×2 (10:05→21:35)
[2017-11-11] MEDS: PROTONIX INJ 40 MG VIAL IVP SCH ×2 (10:05→21:35)
[2017-11-11] MEDS: ROCEPHIN 1 GRAM IV PREMIX 1 G/50 ML IV.SOLN. IV SCH (10:05)
[2017-11-11] MEDS: NS 1000 ML 1,000 ML IV SCH (10:58)
[2017-11-11] MEDS: MAGNESIUM SULFATE 1 GRAM/100 mL PREMIX 1 GM/100 ML BAG IV PRN ×3 (12:25→15:18)
[2017-11-11] MEDS: HumuLIN R SUBCUT PRN ×3 (12:26→21:38)
[2017-11-11] MEDS ORDERED: XYLOCAINE 1 % (PLAIN) ONE (12:55)
--- NOTE | 2017-11-11 13:41 | RAD ---
HISTORY: PICC line placement, pancreatic cancer Study: Single-view chest, done portably and supine. Comparison: 11/10/2017. Findings: Left-sided PICC line is been removed. Right-sided PICC line is been placed with the tip coiled at the level of the medial subclavian vein. This should be repositioned. There again changes of CABG and a left-sided pacemaker with intact appearing leads. The trachea is midline. The heart size is upper nor mal with aortic uncoiling. A few linear foci of atelectasis or scarring are present in the right lung base. No pneumothorax is seen. Osseous structures are intact. IMPRESSION: Right-sided PICC line has been placed with the tip coiled at the level of the medial subclavian vein. This should be repositioned. Postsurgical changes as noted above. Hypertensive configuration. Mild subsegmental atelectasis present in the right lung base. Reported By:
--- NOTE | 2017-11-11 14:59 | RAD ---
Exam: Portable chest History: 72-year-old male, status post repositioning of PICC line Comparison: Previous chest radiograph from 1:31p.m. on the same date Findings: Since previous exam, the PICC line has been repositioned such that the tip is now located in the righ t atrium. Cardiomediastinal structures are stable. Mild degree of atelectasis is noted at the lung ba ses. No pneumothorax. Impression: PICC line has been repositioned since the tip is now located in the right atrium. Remainder of the ex am is unchanged. Reported By:
--- NOTE | 2017-11-11 15:11 | DR.UPDATE ---
H&P Update History and Physical Update: History and Physical reviewed and patient examined. Changes noted: NO Yes with the following:agree with h&p. will redo PICC Procedures (ALL) - Central Line Placement PCM.CLCO: written consent Time out performed: Yes Patient placed pm monitor/pulse ox: Yes prep: mask, gown, gloves, other Centrial line prep: chlorhexidine scrub Local anesthsia used: lidocane 1% Ultrasound used for placement: Yes (right basilic vein id'd) Central line lumen ininserted: double (5FR power port. trimmed length 40cm, 2cm exposed.) Post procedure: good blood return, all ports aspirated, flushed,capped, sterile dressing applied Post procedure xray: tip oc catheter in good position Patient tolerated procedure: Yes Complications: none (picc from 11/10 was removed immediatly after CXR. right picc placed today. initial cxr shwoed picc curled in subclavian. pt was placed on c-arm stretcher and taken to pre-op/procedure room. RUE was prepped and draped in sterile fashion. under live flouro, catheter was withdrawn to 20 cm marjorie and hydrophobic garcias was inserted into purple port. the catheter was then treaded under live flouro and visualized in the SVC. ports aspirated and flushed , sterile drsg applied. pt tolerated procedure well.)
[2017-11-11] MEDS: K-LYTE EFFERVESCENT PO PRN (17:09)
--- NOTE | 2017-11-11 18:15 | PCM.PROG ---
Progress Note - Progress Note for Day of Date: 11/09/17 - Subjective Subjective: 72 WM ER ADMISSION AFTER PRESENTING WITH CO AMS DUE TO COMPLICATIONS WITH STAGE IV PANCREATIC CANCER. PT HAS DIFFUSE JAUNDICE AND POOR RESPONSIVENESS. PT HAS FAMILY AT BEDSIDE. PT IS CURRENTLY ON NASAL CANULA WITH INCREASED ALERTNESS, DENIES PAIN THIS AM, WILL ADD CLEAR LIQUIDS, SMALL SIPS REQUESTED BY PT. FAMILY MET WITH [facility], PT WILL DC HOME WITH HOSPICE AFTER TREATMENT OF ACUTE ILLNESS. - Past Medical Family Social History Past Med/Fam/Surg Hx: No changes since H&P Allergies: Allergies No Known Drug Allergies Allergy (Verified 11/05/17 07:56) - Review of Systems ROS: No change since H&P - Vital Signs and I&O's Vital Signs: Temperature 97.5 F Pulse Rate [Right Brachial] 63 Pulse Rate [Left Brachial] 66 Pulse Rate 66 Respiratory Rate 20 Blood Pressure [Left Arm] 144/75 Blood Pressure [Right Arm] 164/76 Blood Pressure 120/70 O2 Sat by Pulse Oximetry 99 Intake and Output: Intake & Output 11/09/17 11/10/17 11/11/17 11/12/17 11:59 11:59 11:59 11:59 Intake Total 80 / 80 1672 / 1672 1878 / 1878 1987 / 1987 Output Total 1325 / 1325 1350 / 1350 2175 / 2175 1900 / 1900 Balance -1245 / -1245 322 / 322 -297 / -297 88 / 88 - Physical Exam Oriented: Person Eyes: Other (SCLERA JAUNDICE) Ear: Normal Nose: Normal Throat: Dry Respiratory: Diminished Cardiovascular: Tachycardia, Edema : Normal Auscultation: Bowel Sounds: Decreased Tenderness: Diffuse Skin: Decreased Turgur, Other (SEVERE DIFFUSE JAUNDICE) Musculoskeletal: Motor Deficit, Instability Mood Description: Sad Affect: Quiet Speech Pattern: Delayed - Laboratory and Diagnostics Result Diagrams: 11/11/17 06:06 11/11/17 16:32 Labs: 11/07/17 13:54 Urine,Clean Catch Urine Culture - Final 11/06/17 13:35 Stool Stool Culture - Final 11/06/17 13:35 Stool - Final 11/06/17 04:41 Blood Blood Culture - Final Klebsiella Pneumoniae 11/06/17 03:40 Blood Blood Culture - Final Klebsiella Pneumoniae Laboratory WBC 6.3 X10^3/uL (3.6-10.0) 11/11/17 06:06 RBC 3.69 X10^6/uL (4.7-6.0) L 11/11/17 06:06 Hgb 10.1 g/dL (13.5-18.0) L 11/11/17 06:06 Hct 29.3 % (42.0-54.0) L 11/11/17 06:06 MCV 79.4 fL (80.0-100.0) L 11/11/17 06:06 MCH 27.5 pg (27.0-34.0) 11/11/17 06:06 MCHC 34.6 g/dL (33.0-35.0) 11/11/17 06:06 RDW 16.3 % (11.6-16.5) 11/11/17 06:06 Plt Count 189 X10^3/uL (150.0-450.0) 11/11/17 06:06 Plt Count Comment Decreased (ADEQUATE) 11/08/17 04:35 MPV 7.7 fL (7.4-11.0) 11/11/17 06:06 Neut % (Auto) 59.7 % (42.0-75.0) 11/11/17 06:06 Lymph % (Auto) 23.0 % (21.0-51.0) 11/11/17 06:06 [place] % (Auto) 15.2 % (0.0-13.0) H 11/11/17 06:06 Eos % (Auto) 1.5 % (0.9-2.9) 11/11/17 06:06 Baso % (Auto) 0.6 % (0.2-1.0) 11/11/17 06:06 Neut # (Auto) 3.8 x10^3/uL (2.2-4.8) 11/11/17 06:06 Lymph # (Auto) 1.4 X10^3/uL (1.3-2.9) 11/11/17 06:06 [place] # (Auto) 1.0 x10^3/uL (0.3-0.8) H 11/11/17 06:06 Eos # (Auto) 0.1 x10^3/uL (0.0-0.2) 11/11/17 06:06 Baso # (Auto) 0.0 X10^3/uL (0.0-0.1) 11/11/17 06:06 Absolute Nucleated RBC 0.0 /100WBC 11/11/17 06:06 Total Counted 100 11/08/17 04:35 Neutrophils % (Manual) 76 % (39-76) 11/08/17 04:35 Lymphocytes % (Manual) 20 % (13-43) 11/08/17 04:35 Monocytes % (Manual) 4 % (4-9) 11/08/17 04:35 Plt Morphology Comment Normal (NORMAL) 11/08/17 04:35 RBC Morphology Normal (NORMAL) 11/08/17 04:35 Sodium 139 mmol/L (136-145) 11/11/17 06:06 Corrected Sodium 140 mmol/L (136-145) 11/11/17 06:06 Potassium 3.7 mmol/L (3.5-5.1) 11/11/17 16:32 Chloride 105 mmol/L (98-107) 11/11/17 06:06 Carbon Dioxide 25.8 mmol/L (21-32) 11/11/17 06:06 BUN 7 mg/dL (7-18) 11/11/17 06:06 Creatinine 0.68 mg/dL (0.70-1.30) L 11/11/17 06:06 Est GFR (MDRD) Af Amer > 60 (>60) 11/11/17 06:06 Est GFR (MDRD) Non-Af > 60 (>60) 11/11/17 06:06 Glucose 136 mg/dL (65-99) H 11/11/17 06:06 POC Glucose (mg/dL) 317 mg/dL (65-99) H 11/11/17 15:57 Calcium 8.8 mg/dL (8.5-10.1) 11/11/17 06:06 Corrected Calcium 10.7 mg/dL (8.5-10.1) H 11/11/17 06:06 Magnesium 1.6 mg/dL (1.7-2.9) L 11/11/17 06:06 Total Bilirubin 2.20 mg/dL (0.2-1.0) H 11/11/17 06:06 AST 42 Units/L (15-37) H 11/11/17 06:06 ALT 45 Units/L (12-78) 11/11/17 06:06 Alkaline Phosphatase 172 Units/L (46-116) H 11/11/17 06:06 Ammonia < 10 umol/L (11-32) L 11/05/17 08:55 Total Protein 6.2 g/dL (6.4-8.2) L 11/11/17 06:06 Albumin 1.6 g/dL (3.4-5.0) L 11/11/17 06:06 Globulin 4.6 g/dL (2.5-4.5) H 11/11/17 06:06 Albumin/Globulin Ratio 0.3 Ratio (1.1-2.1) L 11/11/17 06:06 Specimen Type Random urine 11/05/17 08:09 Urine Color [place] (YELLOW) 11/05/17 08:09 Urine Appearance Clear (CLEAR) 11/05/17 08:09 Urine pH 7.0 (5.0 - 8.0) 11/05/17 08:09 Ur Specific [place] 1.005 (1.000-1.030) 11/05/17 08:09 Urine Protein 2+ (NEGATIVE) 11/05/17 08:09 Urine Glucose (UA) 4+ (NEGATIVE) 11/05/17 08:09 Urine Ketones Negative (NEGATIVE) 11/05/17 08:09 Urine Occult Blood Negative (NEGATIVE) 11/05/17 08:09 Urine Nitrite Negative (NEGATIVE) 11/05/17 08:09 Urine Bilirubin 1+ (NEGATIVE) 11/05/17 08:09 Urine Urobilinogen 3+ (NORMAL) 11/05/17 08:09 Ur Leukocyte Esterase 1+ (NEGATIVE) 11/05/17 08:09 Urine RBC 0-2 /HPF (NONE SEEN) 11/05/17 08:09 Urine WBC 0-2 /HPF (NONE SEEN) 11/05/17 08:09 Ur Squamous Epith Cells Rare /HPF (NEGATIVE) 11/05/17 08:09 Urine Bacteria Negative /HPF (NEGATIVE) 11/05/17 08:09 Urine Mucus Few /HPF (NEGATIVE) 11/05/17 08:09 Ur Culture Indicated? No/not indicated 11/05/17 08:09 Stool for White Cells Positive (NEGATIVE) A 06/16/18 13:37 Stl C. diff Tox B Gene Negative (NEGATIVE) 11/06/17 13:36 Stl C. diff [id number] Negative (NEGATIVE) 11/06/17 13:36 - Plan (1) Pancreatic cancer Status: Acute Plan: SUPPORTIVE CARE, COMFORT MEASURES. CONSULT [facility]. RESP THERAPY PAIN CONTROL, NAUSEA CONTROL. IV ROCEPHIN, CULTURES PENDING (2) Fever Status: Acute (3) Pancreatic mass Status: Acute (4) Mental status alteration Status: Acute Qualifiers: Altered mental status type: transient alteration of awareness Qualified Code(s): R40.4 - Transient alteration of awareness (5) Generalized weakness Status: Acute (6) Hypertension Status: Chronic Qualifiers: Hypertension type: essential hypertension Qualified Code(s): I10 - Essential (primary) hypertension (7) Diabetes type 2, uncontrolled Status: Chronic (8) History of CVA (cerebrovascular accident) Status: Chronic
--- NOTE | 2017-11-11 18:17 | PCM.PROG ---
Progress Note - Progress Note for Day of Date: 11/10/17 - Subjective Subjective: 72 WM ER ADMISSION AFTER PRESENTING WITH CO AMS DUE TO COMPLICATIONS WITH STAGE IV PANCREATIC CANCER. PT HAS DIFFUSE JAUNDICE AND POOR RESPONSIVENESS. PT HAS FAMILY AT BEDSIDE. PT IS CURRENTLY ON NASAL CANULA WITH INCREASED ALERTNESS, TOLERATED SIPS OF CLEAR LIQUIDS, RENAL FUNCTION IMPROVING, CALM IMPROVED RESP DISTRESS. BLOOD CULTURES POSITIVE, CURRENTLY SENSATIVE TO IV ATBX REGIMEN. CONSULT ANESTHESIA FOR PICC LINE PLACEMENT. FAMILY MET WITH [facility], PT WILL DC HOME WITH HOSPICE AFTER TREATMENT OF ACUTE ILLNESS. - Past Medical Family Social History Past Med/Fam/Surg Hx: No changes since H&P Allergies: Allergies No Known Drug Allergies Allergy (Verified 11/05/17 07:56) - Review of Systems ROS: No change since H&P - Vital Signs and I&O's Vital Signs: Temperature 97.5 F Pulse Rate [Right Brachial] 63 Pulse Rate [Left Brachial] 66 Pulse Rate 66 Respiratory Rate 20 Blood Pressure [Left Arm] 144/75 Blood Pressure [Right Arm] 164/76 Blood Pressure 120/70 O2 Sat by Pulse Oximetry 99 Intake and Output: Intake & Output 11/09/17 11/10/17 11/11/17 11/12/17 11:59 11:59 11:59 11:59 Intake Total 80 / 80 1672 / 1672 1878 / 1878 1987 / 1987 Output Total 1325 / 1325 1350 / 1350 2175 / 2175 1900 / 1900 Balance -1245 / -1245 322 / 322 -297 / -297 88 / 88 - Physical Exam Oriented: Person Eyes: Other (SCLERA JAUNDICE) Ear: Normal Nose: Normal Throat: Dry Respiratory: Diminished Cardiovascular: Tachycardia, Edema : Normal Auscultation: Bowel Sounds: Decreased Tenderness: Diffuse Skin: Decreased Turgur, Other (SEVERE DIFFUSE JAUNDICE) Musculoskeletal: Motor Deficit, Instability Mood Description: Sad Affect: Quiet Speech Pattern: Delayed - Laboratory and Diagnostics Result Diagrams: 11/11/17 06:06 11/11/17 16:32 Labs: 11/07/17 13:54 Urine,Clean Catch Urine Culture - Final 11/06/17 13:35 Stool Stool Culture - Final 11/06/17 13:35 Stool - Final 11/06/17 04:41 Blood Blood Culture - Final Klebsiella Pneumoniae 11/06/17 03:40 Blood Blood Culture - Final Klebsiella Pneumoniae Laboratory WBC 6.3 X10^3/uL (3.6-10.0) 11/11/17 06:06 RBC 3.69 X10^6/uL (4.7-6.0) L 11/11/17 06:06 Hgb 10.1 g/dL (13.5-18.0) L 11/11/17 06:06 Hct 29.3 % (42.0-54.0) L 11/11/17 06:06 MCV 79.4 fL (80.0-100.0) L 11/11/17 06:06 MCH 27.5 pg (27.0-34.0) 11/11/17 06:06 MCHC 34.6 g/dL (33.0-35.0) 11/11/17 06:06 RDW 16.3 % (11.6-16.5) 11/11/17 06:06 Plt Count 189 X10^3/uL (150.0-450.0) 11/11/17 06:06 Plt Count Comment Decreased (ADEQUATE) 11/08/17 04:35 MPV 7.7 fL (7.4-11.0) 11/11/17 06:06 Neut % (Auto) 59.7 % (42.0-75.0) 11/11/17 06:06 Lymph % (Auto) 23.0 % (21.0-51.0) 11/11/17 06:06 [place] % (Auto) 15.2 % (0.0-13.0) H 11/11/17 06:06 Eos % (Auto) 1.5 % (0.9-2.9) 11/11/17 06:06 Baso % (Auto) 0.6 % (0.2-1.0) 11/11/17 06:06 Neut # (Auto) 3.8 x10^3/uL (2.2-4.8) 11/11/17 06:06 Lymph # (Auto) 1.4 X10^3/uL (1.3-2.9) 11/11/17 06:06 [place] # (Auto) 1.0 x10^3/uL (0.3-0.8) H 11/11/17 06:06 Eos # (Auto) 0.1 x10^3/uL (0.0-0.2) 11/11/17 06:06 Baso # (Auto) 0.0 X10^3/uL (0.0-0.1) 11/11/17 06:06 Absolute Nucleated RBC 0.0 /100WBC 11/11/17 06:06 Total Counted 100 11/08/17 04:35 Neutrophils % (Manual) 76 % (39-76) 11/08/17 04:35 Lymphocytes % (Manual) 20 % (13-43) 11/08/17 04:35 Monocytes % (Manual) 4 % (4-9) 11/08/17 04:35 Plt Morphology Comment Normal (NORMAL) 11/08/17 04:35 RBC Morphology Normal (NORMAL) 11/08/17 04:35 Sodium 139 mmol/L (136-145) 11/11/17 06:06 Corrected Sodium 140 mmol/L (136-145) 11/11/17 06:06 Potassium 3.7 mmol/L (3.5-5.1) 11/11/17 16:32 Chloride 105 mmol/L (98-107) 11/11/17 06:06 Carbon Dioxide 25.8 mmol/L (21-32) 11/11/17 06:06 BUN 7 mg/dL (7-18) 11/11/17 06:06 Creatinine 0.68 mg/dL (0.70-1.30) L 11/11/17 06:06 Est GFR (MDRD) Af Amer > 60 (>60) 11/11/17 06:06 Est GFR (MDRD) Non-Af > 60 (>60) 11/11/17 06:06 Glucose 136 mg/dL (65-99) H 11/11/17 06:06 POC Glucose (mg/dL) 317 mg/dL (65-99) H 11/11/17 15:57 Calcium 8.8 mg/dL (8.5-10.1) 11/11/17 06:06 Corrected Calcium 10.7 mg/dL (8.5-10.1) H 11/11/17 06:06 Magnesium 1.6 mg/dL (1.7-2.9) L 11/11/17 06:06 Total Bilirubin 2.20 mg/dL (0.2-1.0) H 11/11/17 06:06 AST 42 Units/L (15-37) H 11/11/17 06:06 ALT 45 Units/L (12-78) 11/11/17 06:06 Alkaline Phosphatase 172 Units/L (46-116) H 11/11/17 06:06 Ammonia < 10 umol/L (11-32) L 11/05/17 08:55 Total Protein 6.2 g/dL (6.4-8.2) L 11/11/17 06:06 Albumin 1.6 g/dL (3.4-5.0) L 11/11/17 06:06 Globulin 4.6 g/dL (2.5-4.5) H 11/11/17 06:06 Albumin/Globulin Ratio 0.3 Ratio (1.1-2.1) L 11/11/17 06:06 Specimen Type Random urine 11/05/17 08:09 Urine Color [place] (YELLOW) 11/05/17 08:09 Urine Appearance Clear (CLEAR) 11/05/17 08:09 Urine pH 7.0 (5.0 - 8.0) 11/05/17 08:09 Ur Specific [place] 1.005 (1.000-1.030) 11/05/17 08:09 Urine Protein 2+ (NEGATIVE) 11/05/17 08:09 Urine Glucose (UA) 4+ (NEGATIVE) 11/05/17 08:09 Urine Ketones Negative (NEGATIVE) 11/05/17 08:09 Urine Occult Blood Negative (NEGATIVE) 11/05/17 08:09 Urine Nitrite Negative (NEGATIVE) 11/05/17 08:09 Urine Bilirubin 1+ (NEGATIVE) 11/05/17 08:09 Urine Urobilinogen 3+ (NORMAL) 11/05/17 08:09 Ur Leukocyte Esterase 1+ (NEGATIVE) 11/05/17 08:09 Urine RBC 0-2 /HPF (NONE SEEN) 11/05/17 08:09 Urine WBC 0-2 /HPF (NONE SEEN) 11/05/17 08:09 Ur Squamous Epith Cells Rare /HPF (NEGATIVE) 11/05/17 08:09 Urine Bacteria Negative /HPF (NEGATIVE) 11/05/17 08:09 Urine Mucus Few /HPF (NEGATIVE) 11/05/17 08:09 Ur Culture Indicated? No/not indicated 11/05/17 08:09 Stool for White Cells Positive (NEGATIVE) A 11/06/17 13:37 Stl C. diff Tox B Gene Negative (NEGATIVE) 11/06/17 13:36 Stl C. diff 027-NAP1-BI Negative (NEGATIVE) 11/06/17 13:36 - Plan (1) Pancreatic cancer Status: Acute Plan: SUPPORTIVE CARE, COMFORT MEASURES. CONSULT [facility]. RESP THERAPY PAIN CONTROL, NAUSEA CONTROL. IV ROCEPHIN, CULTURES PENDING (2) Fever Status: Acute (3) Pancreatic mass Status: Acute (4) Mental status alteration Status: Acute Qualifiers: Altered mental status type: transient alteration of awareness Qualified Code(s): R40.4 - Transient alteration of awareness (5) Generalized weakness Status: Acute (6) Hypertension Status: Chronic Qualifiers: Hypertension type: essential hypertension Qualified Code(s): I10 - Essential (primary) hypertension (7) Diabetes type 2, uncontrolled Status: Chronic (8) History of CVA (cerebrovascular accident) Status: Chronic
--- NOTE | 2017-11-11 18:19 | PCM.PROG ---
Progress Note - Progress Note for Day of Date: 11/11/17 - Subjective Subjective: 72 WM ER ADMISSION AFTER PRESENTING WITH CO AMS DUE TO COMPLICATIONS WITH STAGE IV PANCREATIC CANCER. PT HAS DIFFUSE JAUNDICE . PT HAS FAMILY AT BEDSIDE. PT IS CURRENTLY ON NASAL CANULA WITH INCREASED ALERTNESS, TOLERATED SIPS OF CLEAR LIQUIDS, RENAL FUNCTION IMPROVING, CALM IMPROVED RESP DISTRESS. PT CO ABDOMINAL PAIN THIS AM, MORPHINE IV ORDERED PRN. BLOOD CULTURES POSITIVE, CURRENTLY SENSATIVE TO IV ATBX REGIMEN. CONSULT ANESTHESIA FOR PICC LINE PLACEMENT TODAY, UNABLE TO ACCESS PICC ON 11/10. [facility], PT WILL DC HOME WITH HOSPICE AFTER TREATMENT OF ACUTE ILLNESS. - Past Medical Family Social History Past Med/Fam/Surg Hx: No changes since H&P Allergies: Allergies No Known Drug Allergies Allergy (Verified 11/05/17 07:56) - Review of Systems ROS: No change since H&P - Vital Signs and I&O's Vital Signs: Temperature 97.5 F Pulse Rate [Right Brachial] 63 Pulse Rate [Left Brachial] 66 Pulse Rate 66 Respiratory Rate 20 Blood Pressure [Left Arm] 144/75 Blood Pressure [Right Arm] 164/76 Blood Pressure 120/70 O2 Sat by Pulse Oximetry 99 Intake and Output: Intake & Output 11/09/17 11/10/17 11/11/17 11/12/17 11:59 11:59 11:59 11:59 Intake Total 80 / 80 1672 / 1672 1878 / 1878 1987 / 1987 Output Total 1325 / 1325 1350 / 1350 2175 / 2175 1900 / 1900 Balance -1245 / -1245 322 / 322 -297 / -297 88 / 88 - Physical Exam Oriented: Person Eyes: Other (SCLERA JAUNDICE) Ear: Normal Nose: Normal Throat: Dry Respiratory: Diminished Cardiovascular: Tachycardia, Edema : Normal Auscultation: Bowel Sounds: Decreased Tenderness: Diffuse Skin: Decreased Turgur, Other (SEVERE DIFFUSE JAUNDICE) Musculoskeletal: Motor Deficit, Instability Mood Description: Sad Affect: Quiet Speech Pattern: Delayed - Laboratory and Diagnostics Result Diagrams: 11/11/17 06:06 11/11/17 16:32 Labs: 11/07/17 13:54 Urine,Clean Catch Urine Culture - Final 11/06/17 13:35 Stool Stool Culture - Final 11/06/17 13:35 Stool - Final 11/06/17 04:41 Blood Blood Culture - Final Klebsiella Pneumoniae 11/06/17 03:40 Blood Blood Culture - Final Klebsiella Pneumoniae Laboratory WBC 6.3 X10^3/uL (3.6-10.0) 11/11/17 06:06 RBC 3.69 X10^6/uL (4.7-6.0) L 11/11/17 06:06 Hgb 10.1 g/dL (13.5-18.0) L 11/11/17 06:06 Hct 29.3 % (42.0-54.0) L 11/11/17 06:06 MCV 79.4 fL (80.0-100.0) L 11/11/17 06:06 MCH 27.5 pg (27.0-34.0) 11/11/17 06:06 MCHC 34.6 g/dL (33.0-35.0) 11/11/17 06:06 RDW 16.3 % (11.6-16.5) 11/11/17 06:06 Plt Count 189 X10^3/uL (150.0-450.0) 11/11/17 06:06 Plt Count Comment Decreased (ADEQUATE) 11/08/17 04:35 MPV 7.7 fL (7.4-11.0) 11/11/17 06:06 Neut % (Auto) 59.7 % (42.0-75.0) 11/11/17 06:06 Lymph % (Auto) 23.0 % (21.0-51.0) 11/11/17 06:06 [place] % (Auto) 15.2 % (0.0-13.0) H 11/11/17 06:06 Eos % (Auto) 1.5 % (0.9-2.9) 11/11/17 06:06 Baso % (Auto) 0.6 % (0.2-1.0) 11/11/17 06:06 Neut # (Auto) 3.8 x10^3/uL (2.2-4.8) 11/11/17 06:06 Lymph # (Auto) 1.4 X10^3/uL (1.3-2.9) 11/11/17 06:06 [place] # (Auto) 1.0 x10^3/uL (0.3-0.8) H 11/11/17 06:06 Eos # (Auto) 0.1 x10^3/uL (0.0-0.2) 11/11/17 06:06 Baso # (Auto) 0.0 X10^3/uL (0.0-0.1) 11/11/17 06:06 Absolute Nucleated RBC 0.0 /100WBC 11/11/17 06:06 Total Counted 100 11/08/17 04:35 Neutrophils % (Manual) 76 % (39-76) 11/08/17 04:35 Lymphocytes % (Manual) 20 % (13-43) 11/08/17 04:35 Monocytes % (Manual) 4 % (4-9) 11/08/17 04:35 Plt Morphology Comment Normal (NORMAL) 11/08/17 04:35 RBC Morphology Normal (NORMAL) 11/08/17 04:35 Sodium 139 mmol/L (136-145) 11/11/17 06:06 Corrected Sodium 140 mmol/L (136-145) 11/11/17 06:06 Potassium 3.7 mmol/L (3.5-5.1) 11/11/17 16:32 Chloride 105 mmol/L (98-107) 11/11/17 06:06 Carbon Dioxide 25.8 mmol/L (21-32) 11/11/17 06:06 BUN 7 mg/dL (7-18) 11/11/17 06:06 Creatinine 0.68 mg/dL (0.70-1.30) L 11/11/17 06:06 Est GFR (MDRD) Af Amer > 60 (>60) 11/11/17 06:06 Est GFR (MDRD) Non-Af > 60 (>60) 11/11/17 06:06 Glucose 136 mg/dL (65-99) H 11/11/17 06:06 POC Glucose (mg/dL) 317 mg/dL (65-99) H 11/11/17 15:57 Calcium 8.8 mg/dL (8.5-10.1) 11/11/17 06:06 Corrected Calcium 10.7 mg/dL (8.5-10.1) H 11/11/17 06:06 Magnesium 1.6 mg/dL (1.7-2.9) L 11/11/17 06:06 Total Bilirubin 2.20 mg/dL (0.2-1.0) H 11/11/17 06:06 AST 42 Units/L (15-37) H 11/11/17 06:06 ALT 45 Units/L (12-78) 11/11/17 06:06 Alkaline Phosphatase 172 Units/L (46-116) H 11/11/17 06:06 Ammonia < 10 umol/L (11-32) L 11/05/17 08:55 Total Protein 6.2 g/dL (6.4-8.2) L 11/11/17 06:06 Albumin 1.6 g/dL (3.4-5.0) L 11/11/17 06:06 Globulin 4.6 g/dL (2.5-4.5) H 11/11/17 06:06 Albumin/Globulin Ratio 0.3 Ratio (1.1-2.1) L 11/11/17 06:06 Specimen Type Random urine 11/05/17 08:09 Urine Color [place] (YELLOW) 11/05/17 08:09 Urine Appearance Clear (CLEAR) 11/05/17 08:09 Urine pH 7.0 (5.0 - 8.0) 11/05/17 08:09 Ur Specific [place] 1.005 (1.000-1.030) 11/05/17 08:09 Urine Protein 2+ (NEGATIVE) 11/05/17 08:09 Urine Glucose (UA) 4+ (NEGATIVE) 11/05/17 08:09 Urine Ketones Negative (NEGATIVE) 11/05/17 08:09 Urine Occult Blood Negative (NEGATIVE) 11/05/17 08:09 Urine Nitrite Negative (NEGATIVE) 11/05/17 08:09 Urine Bilirubin 1+ (NEGATIVE) 11/05/17 08:09 Urine Urobilinogen 3+ (NORMAL) 11/05/17 08:09 Ur Leukocyte Esterase 1+ (NEGATIVE) 11/05/17 08:09 Urine RBC 0-2 /HPF (NONE SEEN) 11/05/17 08:09 Urine WBC 0-2 /HPF (NONE SEEN) 11/05/17 08:09 Ur Squamous Epith Cells Rare /HPF (NEGATIVE) 11/05/17 08:09 Urine Bacteria Negative /HPF (NEGATIVE) 11/05/17 08:09 Urine Mucus Few /HPF (NEGATIVE) 11/05/17 08:09 Ur Culture Indicated? No/not indicated 11/05/17 08:09 Stool for White Cells Positive (NEGATIVE) A 11/06/17 13:37 Stl C. diff Tox B Gene Negative (NEGATIVE) 11/06/17 13:36 Stl C. diff 027-NAP1-BI Negative (NEGATIVE) 11/06/17 13:36 - Plan (1) Klebsiella pneumoniae sepsis Status: Acute Plan: IV ATBX, PICC LINE PLACEMENT. WILL ARRANGE FOR 14 DAYS IV ATBX AT HOME UPON D/C. CASE MANAGEMENT TO ARRANGE IN HOME CARE, DME (2) Pancreatic cancer Status: Acute Plan: SUPPORTIVE CARE, COMFORT MEASURES. [facility]. RESP THERAPY PAIN CONTROL, NAUSEA CONTROL. IV ROCEPHIN, CULTURES PENDING (3) Fever Status: Acute (4) Pancreatic mass Status: Acute (5) Mental status alteration Status: Acute Qualifiers: Altered mental status type: transient alteration of awareness Qualified Code(s): R40.4 - Transient alteration of awareness (6) Generalized weakness Status: Acute (7) Hypertension Status: Chronic Qualifiers: Hypertension type: essential hypertension Qualified Code(s): I10 - Essential (primary) hypertension (8) Diabetes type 2, uncontrolled Status: Chronic (9) History of CVA (cerebrovascular accident) Status: Chronic
[2017-11-11] MEDS: LEVAQUIN PREMIX IV 750 MG 750 MG/150 ML BAG IV SCH (21:33)
[2017-11-11] MEDS: COLACE CAP 100 MG PO SCH (21:34)
[2017-11-11] MEDS: ARICEPT TAB 10 MG PO SCH (21:34)
[2017-11-11] MEDS: SNACK - Diabetic Appropriate PO SCH (21:34)
[2017-11-11] MEDS: MILK OF MAGNESIA PO SCH (21:37)
[2017-11-12] MEDS: PATIENT'S HOME MEDICATION PO SCH ×3 (00:18→21:36)
[2017-11-12] MEDS: SINEMET (PLAIN) 25/100 MG PO SCH ×3 (00:18→21:34)
[2017-11-12 05:35] LABS: BASOPHILS % (AUTO) 0.5 % (0.2-1.0); EOSINOPHILS # (AUTO) 0.1 x10^3/uL (0.0-0.2); HEMATOCRIT 29.6 % (42.0-54.0); HEMOGLOBIN 10.1 g/dL (13.5-18.0); LYMPHOCYTES # (AUTO) 1.5 X10^3/uL (1.3-2.9); LYMPHOCYTES % (AUTO) 24.1 % (21.0-51.0); MEAN CORPUSCULAR HEMOGLOBIN 27.4 pg (27.0-34.0); MEAN CORPUSCULAR VOLUME 80.4 fL (80.0-100.0); MEAN PLATELET VOLUME 7.8 fL (7.4-11.0); MONOCYTES # (AUTO) 0.8 x10^3/uL (0.3-0.8); MONOCYTES % (AUTO) 12.6 % (0.0-13.0); NEUTROPHILS # (AUTO) 3.8 x10^3/uL (2.2-4.8); NEUTROPHILS % (AUTO) 60.8 % (42.0-75.0); PLATELET COUNT 205 X10^3/uL (150.0-450.0); RED BLOOD COUNT 3.68 X10^6/uL (4.7-6.0); RED CELL DISTRIBUTION WIDTH 16.4 % (11.6-16.5); WHITE BLOOD COUNT 6.2 X10^3/uL (3.6-10.0)
[2017-11-12] MEDS: NS 1000 ML 1,000 ML IV SCH ×3 (05:41→10:41)
[2017-11-12 05:49] LABS: ALANINE AMINOTRANSFERASE 41 Units/L (12-78); ALBUMIN 1.5 g/dL (3.4-5.0); ALKALINE PHOSPHATASE 174 Units/L (46-116); ASPARTATE AMINO TRANSFERASE 36 Units/L (15-37); BLOOD UREA NITROGEN 4 mg/dL (7-18); CALCIUM 8.6 mg/dL (8.5-10.1); CARBON DIOXIDE 25.6 mmol/L (21-32); CHLORIDE 107 mmol/L (98-107); COR CA(FOR HYPOALB) 10.6 mg/dL (8.5-10.1); COR NA(FOR HYPERGLY) 141 mmol/L (136-145); CREATININE 0.61 mg/dL (0.70-1.30); MAGNESIUM 1.7 mg/dL (1.7-2.9); SODIUM 140 mmol/L (136-145); TOTAL PROTEIN 6.2 g/dL (6.4-8.2); eGFR NON BLACK RACES > 60 (>60)
[2017-11-12] MEDS: POTASSIUM CHL 40 MEQ/NS 0.45% 500 ML IV PRN (06:16)
[2017-11-12] MEDS: DUONEB 0.5 MG/3 MG NEB PRN (09:15)
[2017-11-12] MEDS: ROCEPHIN 1 GRAM IV PREMIX 1 G/50 ML IV.SOLN. IV SCH (10:14)
[2017-11-12] MEDS: FOLIC ACID TAB 1 MG PO SCH (10:15)
[2017-11-12] MEDS: LOVENOX INJ 30 MG SYR SC SCH ×2 (10:15→21:33)
[2017-11-12] MEDS: COREG TAB 3.125 MG PO SCH ×2 (10:16→21:35)
[2017-11-12] MEDS: K-DUR TAB 20 MEQ PO SCH (10:16)
[2017-11-12] MEDS: CELEXA PO SCH (10:16)
[2017-11-12] MEDS: LASIX PO SCH (10:17)
[2017-11-12] MEDS: ISOSORBIDE DINITRATE PO SCH ×2 (10:17→21:34)
[2017-11-12] MEDS: ASPIRIN EC 81 MG PO SCH (10:17)
[2017-11-12] MEDS: PROTONIX INJ 40 MG VIAL IVP SCH ×2 (10:19→21:33)
[2017-11-12] MEDS ORDERED: GLUCOPHAGE ONE ×2 (10:23→16:49)
[2017-11-12] MEDS: ANTIVERT TAB 25 MG PO SCH (10:25)
[2017-11-12] MEDS: GLUCOPHAGE PO SCH ×2 (10:40→16:59)
[2017-11-12] MEDS: HumuLIN R SUBCUT PRN ×3 (12:47→21:36)
[2017-11-12] MEDS: LEVAQUIN PREMIX IV 750 MG 750 MG/150 ML BAG IV SCH (21:32)
[2017-11-12] MEDS: COLACE CAP 100 MG PO SCH (21:34)
[2017-11-12] MEDS: SNACK - Diabetic Appropriate PO SCH (21:34)
[2017-11-12] MEDS: ARICEPT TAB 10 MG PO SCH (21:34)
[2017-11-12] MEDS: MILK OF MAGNESIA PO SCH (21:35)
[2017-11-13] MEDS ORDERED: GLUCOPHAGE ONE ×3 (04:36→16:35)
[2017-11-13] MEDS: NS 1000 ML 1,000 ML IV SCH (05:31)
[2017-11-13] MEDS: GLUCOPHAGE PO SCH ×2 (06:08→16:33)
[2017-11-13 06:53] LABS: BASOPHILS # (AUTO) 0.1 X10^3/uL (0.0-0.1); BASOPHILS % (AUTO) 0.8 % (0.2-1.0); EOSINOPHILS # (AUTO) 0.2 x10^3/uL (0.0-0.2); EOSINOPHILS % (AUTO) 2.2 % (0.9-2.9); HEMATOCRIT 27.5 % (42.0-54.0); HEMOGLOBIN 9.4 g/dL (13.5-18.0); LYMPHOCYTES % (AUTO) 23.6 % (21.0-51.0); MEAN CORPUSCULAR HEMOGLOBIN 27.7 pg (27.0-34.0); MEAN CORPUSCULAR VOLUME 81.3 fL (80.0-100.0); MEAN PLATELET VOLUME 8.1 fL (7.4-11.0); MONOCYTES # (AUTO) 0.6 x10^3/uL (0.3-0.8); MONOCYTES % (AUTO) 7.2 % (0.0-13.0); NEUTROPHILS # (AUTO) 5.5 x10^3/uL (2.2-4.8); NEUTROPHILS % (AUTO) 66.2 % (42.0-75.0); PLATELET COUNT 206 X10^3/uL (150.0-450.0); RED BLOOD COUNT 3.39 X10^6/uL (4.7-6.0); RED CELL DISTRIBUTION WIDTH 16.8 % (11.6-16.5); WHITE BLOOD COUNT 8.3 X10^3/uL (3.6-10.0)
[2017-11-13 07:23] LABS: ALANINE AMINOTRANSFERASE 19 Units/L (12-78); ALBUMIN 1.6 g/dL (3.4-5.0); ALKALINE PHOSPHATASE 189 Units/L (46-116); ASPARTATE AMINO TRANSFERASE 36 Units/L (15-37); BLOOD UREA NITROGEN 4 mg/dL (7-18); CALCIUM 8.4 mg/dL (8.5-10.1); CARBON DIOXIDE 22.6 mmol/L (21-32); CHLORIDE 107 mmol/L (98-107); COR CA(FOR HYPOALB) 10.3 mg/dL (8.5-10.1); COR NA(FOR HYPERGLY) 140 mmol/L (136-145); CREATININE 0.73 mg/dL (0.70-1.30); SODIUM 139 mmol/L (136-145); TOTAL PROTEIN 5.9 g/dL (6.4-8.2); eGFR NON BLACK RACES > 60 (>60)
[2017-11-13] MEDS: FOLIC ACID TAB 1 MG PO SCH (09:01)
[2017-11-13] MEDS: K-DUR TAB 20 MEQ PO SCH (09:01)
[2017-11-13] MEDS: ISOSORBIDE DINITRATE PO SCH ×2 (09:01→22:27)
[2017-11-13] MEDS: COREG TAB 3.125 MG PO SCH ×2 (09:02→22:28)
[2017-11-13] MEDS: ASPIRIN EC 81 MG PO SCH (09:02)
[2017-11-13] MEDS: ANTIVERT TAB 25 MG PO SCH (09:02)
[2017-11-13] MEDS: CELEXA PO SCH (09:02)
[2017-11-13] MEDS: PROTONIX INJ 40 MG VIAL IVP SCH ×2 (09:12→22:29)
[2017-11-13] MEDS: ROCEPHIN 1 GRAM IV PREMIX 1 G/50 ML IV.SOLN. IV SCH (09:12)
[2017-11-13] MEDS: LASIX PO SCH (09:13)
[2017-11-13] MEDS: LOVENOX INJ 30 MG SYR SC SCH ×2 (09:14→22:20)
[2017-11-13] MEDS: PATIENT'S HOME MEDICATION PO SCH ×2 (09:19→22:45)
[2017-11-13] MEDS: SINEMET (PLAIN) 25/100 MG PO SCH ×2 (09:19→22:27)
[2017-11-13] MEDS: NORCO 5/325 MG TAB PO PRN (09:23)
--- NOTE | 2017-11-13 11:42 | PCM.PROG ---
Progress Note - Progress Note for Day of Date: 11/13/17 - Subjective Subjective: 72 WM ER ADMISSION AFTER PRESENTING WITH CO AMS DUE TO COMPLICATIONS WITH STAGE IV PANCREATIC CANCER. PT HAS DIFFUSE JAUNDICE . PT HAS FAMILY AT BEDSIDE. PT IS CURRENTLY ON NASAL CANULA WITH INCREASED ALERTNESS, TOLERATED SIPS OF CLEAR LIQUIDS, RENAL FUNCTION IMPROVING, CALM IMPROVED RESP DISTRESS. PT CO ABDOMINAL PAIN THIS AM, MORPHINE IV ORDERED PRN. BLOOD CULTURES POSITIVE, CURRENTLY SENSATIVE TO IV ATBX REGIMEN. FAMILY MET WITH [facility], PT WILL DC HOME WITH HOSPICE AFTER TREATMENT OF ACUTE ILLNESS PER FAMILY'S REQUEST TO COMPLETE IV ATBX REGIMEN - Past Medical Family Social History Past Med/Fam/Surg Hx: No changes since H&P Allergies: Allergies No Known Drug Allergies Allergy (Verified 11/05/17 07:56) - Review of Systems ROS: No change since H&P - Vital Signs and I&O's Vital Signs: Temperature 98.6 F Pulse Rate [Right Brachial] 78 Pulse Rate [Left Brachial] 64 Pulse Rate 71 Respiratory Rate 20 Blood Pressure [Left Arm] 135/67 Blood Pressure [Right Arm] 133/80 Blood Pressure 120/70 O2 Sat by Pulse Oximetry 98 Intake and Output: Intake & Output 11/10/17 11/11/17 11/12/17 11/13/17 11:59 11:59 11:59 11:59 Intake Total 1672 / 1672 1878 / 1878 3468 / 3468 2095 / 2095 Output Total 1350 / 1350 2175 / 2175 4075 / 4075 3650 / 3650 Balance 322 / 322 -297 / -297 -607 / -607 -1555 / -1555 - Physical Exam Oriented: Person Eyes: Other (SCLERA JAUNDICE) Ear: Normal Nose: Normal Throat: Dry Respiratory: Diminished Cardiovascular: Tachycardia, Edema : Normal Auscultation: Bowel Sounds: Decreased Tenderness: Diffuse Skin: Decreased Turgur, Other (SEVERE DIFFUSE JAUNDICE) Musculoskeletal: Motor Deficit, Instability Mood Description: Sad Affect: Quiet Speech Pattern: Delayed - Laboratory and Diagnostics Result Diagrams: 11/13/17 05:20 11/13/17 05:20 Labs: 11/07/17 13:54 Urine,Clean Catch Urine Culture - Final 11/06/17 13:35 Stool Stool Culture - Final 11/06/17 13:35 Stool - Final 11/06/17 04:41 Blood Blood Culture - Final Klebsiella Pneumoniae 11/06/17 03:40 Blood Blood Culture - Final Klebsiella Pneumoniae Laboratory WBC 8.3 X10^3/uL (3.6-10.0) 11/13/17 05:20 RBC 3.39 X10^6/uL (4.7-6.0) L 11/13/17 05:20 Hgb 9.4 g/dL (13.5-18.0) L 11/13/17 05:20 Hct 27.5 % (42.0-54.0) L 11/13/17 05:20 MCV 81.3 fL (80.0-100.0) 11/13/17 05:20 MCH 27.7 pg (27.0-34.0) 11/13/17 05:20 MCHC 34.0 g/dL (33.0-35.0) 11/13/17 05:20 RDW 16.8 % (11.6-16.5) H 11/13/17 05:20 Plt Count 206 X10^3/uL (150.0-450.0) 11/13/17 05:20 Plt Count Comment Decreased (ADEQUATE) 11/08/17 04:35 MPV 8.1 fL (7.4-11.0) 11/13/17 05:20 Neut % (Auto) 66.2 % (42.0-75.0) 11/13/17 05:20 Lymph % (Auto) 23.6 % (21.0-51.0) 11/13/17 05:20 [place] % (Auto) 7.2 % (0.0-13.0) 11/13/17 05:20 Eos % (Auto) 2.2 % (0.9-2.9) 11/13/17 05:20 Baso % (Auto) 0.8 % (0.2-1.0) 11/13/17 05:20 Neut # (Auto) 5.5 x10^3/uL (2.2-4.8) H 11/13/17 05:20 Lymph # (Auto) 2.0 X10^3/uL (1.3-2.9) 11/13/17 05:20 [place] # (Auto) 0.6 x10^3/uL (0.3-0.8) 11/13/17 05:20 Eos # (Auto) 0.2 x10^3/uL (0.0-0.2) 11/13/17 05:20 Baso # (Auto) 0.1 X10^3/uL (0.0-0.1) 11/13/17 05:20 Absolute Nucleated RBC 0.0 /100WBC 11/13/17 05:20 Total Counted 100 11/08/17 04:35 Neutrophils % (Manual) 76 % (39-76) 11/08/17 04:35 Lymphocytes % (Manual) 20 % (13-43) 11/08/17 04:35 Monocytes % (Manual) 4 % (4-9) 11/08/17 04:35 Plt Morphology Comment Normal (NORMAL) 11/08/17 04:35 RBC Morphology Normal (NORMAL) 11/08/17 04:35 Sodium 139 mmol/L (136-145) 11/13/17 05:20 Corrected Sodium 140 mmol/L (136-145) 11/13/17 05:20 Potassium 3.6 mmol/L (3.5-5.1) 11/13/17 05:20 Chloride 107 mmol/L (98-107) 11/13/17 05:20 Carbon Dioxide 22.6 mmol/L (21-32) 11/13/17 05:20 BUN 4 mg/dL (7-18) L 11/13/17 05:20 Creatinine 0.73 mg/dL (0.70-1.30) 11/13/17 05:20 Est GFR (MDRD) Af Amer > 60 (>60) 11/13/17 05:20 Est GFR (MDRD) Non-Af > 60 (>60) 11/13/17 05:20 Glucose 162 mg/dL (65-99) H 11/13/17 05:20 POC Glucose (mg/dL) 125 mg/dL (65-99) H 11/12/17 05:35 Calcium 8.4 mg/dL (8.5-10.1) L 11/13/17 05:20 Corrected Calcium 10.3 mg/dL (8.5-10.1) H 11/13/17 05:20 Magnesium 1.7 mg/dL (1.7-2.9) 11/12/17 04:41 Total Bilirubin 1.30 mg/dL (0.2-1.0) H 11/13/17 05:20 AST 36 Units/L (15-37) 11/13/17 05:20 ALT 19 Units/L (12-78) 11/13/17 05:20 Alkaline Phosphatase 189 Units/L (46-116) H 11/13/17 05:20 Ammonia < 10 umol/L (11-32) L 11/05/17 08:55 Total Protein 5.9 g/dL (6.4-8.2) L 11/13/17 05:20 Albumin 1.6 g/dL (3.4-5.0) L 11/13/17 05:20 Globulin 4.3 g/dL (2.5-4.5) 11/13/17 05:20 Albumin/Globulin Ratio 0.4 Ratio (1.1-2.1) L 11/13/17 05:20 Specimen Type Random urine 11/05/17 08:09 Urine Color [place] (YELLOW) 11/05/17 08:09 Urine Appearance Clear (CLEAR) 11/05/17 08:09 Urine pH 7.0 (5.0 - 8.0) 11/05/17 08:09 Ur Specific [place] 1.005 (1.000-1.030) 11/05/17 08:09 Urine Protein 2+ (NEGATIVE) 11/05/17 08:09 Urine Glucose (UA) 4+ (NEGATIVE) 11/05/17 08:09 Urine Ketones Negative (NEGATIVE) 11/05/17 08:09 Urine Occult Blood Negative (NEGATIVE) 11/05/17 08:09 Urine Nitrite Negative (NEGATIVE) 11/05/17 08:09 Urine Bilirubin 1+ (NEGATIVE) 11/05/17 08:09 Urine Urobilinogen 3+ (NORMAL) 11/05/17 08:09 Ur Leukocyte Esterase 1+ (NEGATIVE) 11/05/17 08:09 Urine RBC 0-2 /HPF (NONE SEEN) 11/05/17 08:09 Urine WBC 0-2 /HPF (NONE SEEN) 11/05/17 08:09 Ur Squamous Epith Cells Rare /HPF (NEGATIVE) 11/05/17 08:09 Urine Bacteria Negative /HPF (NEGATIVE) 11/05/17 08:09 Urine Mucus Few /HPF (NEGATIVE) 11/05/17 08:09 Ur Culture Indicated? No/not indicated 11/05/17 08:09 Stool for White Cells Positive (NEGATIVE) A 11/06/17 13:37 Stl C. diff Tox B Gene Negative (NEGATIVE) 11/06/17 13:36 Stl C. diff 027-NAP1-BI Negative (NEGATIVE) 11/06/17 13:36 - Plan (1) Klebsiella pneumoniae sepsis Status: Acute Plan: IV ATBX, PICC LINE PLACEMENT. WILL ARRANGE FOR 14 DAYS IV ATBX AT HOME UPON D/C. CASE MANAGEMENT TO ARRANGE IN HOME CARE, DME (2) Pancreatic cancer Status: Acute Plan: SUPPORTIVE CARE, COMFORT MEASURES. CONSULT [facility]. RESP THERAPY PAIN CONTROL, NAUSEA CONTROL. IV ROCEPHIN, CULTURES PENDING (3) Fever Status: Acute (4) Pancreatic mass Status: Acute (5) Mental status alteration Status: Acute Qualifiers: Altered mental status type: transient alteration of awareness Qualified Code(s): R40.4 - Transient alteration of awareness (6) Generalized weakness Status: Acute (7) Hypertension Status: Chronic Qualifiers: Hypertension type: essential hypertension Qualified Code(s): I10 - Essential (primary) hypertension (8) Diabetes type 2, uncontrolled Status: Chronic (9) History of CVA (cerebrovascular accident) Status: Chronic
[2017-11-13] MEDS: HumuLIN R SUBCUT PRN ×2 (11:46→16:33)
[2017-11-13] MEDS: COLACE CAP 100 MG PO SCH (22:27)
[2017-11-13] MEDS: MILK OF MAGNESIA PO SCH (22:27)
[2017-11-13] MEDS: ARICEPT TAB 10 MG PO SCH (22:27)
[2017-11-13] MEDS: SNACK - Diabetic Appropriate PO SCH (22:28)
[2017-11-13] MEDS: LEVAQUIN PREMIX IV 750 MG 750 MG/150 ML BAG IV SCH (22:45)
[2017-11-14] MEDS: NS 1000 ML 1,000 ML IV SCH (01:30)
[2017-11-14] MEDS ORDERED: GLUCOPHAGE ONE ×2 (05:41→16:30)
[2017-11-14] MEDS: GLUCOPHAGE PO SCH ×2 (06:17→16:56)
[2017-11-14 06:39] LABS: BASOPHILS % (AUTO) 0.5 % (0.2-1.0); EOSINOPHILS # (AUTO) 0.1 x10^3/uL (0.0-0.2); EOSINOPHILS % (AUTO) 1.7 % (0.9-2.9); HEMATOCRIT 26.6 % (42.0-54.0); HEMOGLOBIN 8.9 g/dL (13.5-18.0); LYMPHOCYTES # (AUTO) 1.4 X10^3/uL (1.3-2.9); LYMPHOCYTES % (AUTO) 20.9 % (21.0-51.0); MEAN CORPUSCULAR HEMOGLOBIN 27.4 pg (27.0-34.0); MEAN CORPUSCULAR HGB CONC 33.7 g/dL (33.0-35.0); MEAN CORPUSCULAR VOLUME 81.5 fL (80.0-100.0); MEAN PLATELET VOLUME 8.1 fL (7.4-11.0); MONOCYTES # (AUTO) 0.7 x10^3/uL (0.3-0.8); MONOCYTES % (AUTO) 9.7 % (0.0-13.0); NEUTROPHILS # (AUTO) 4.6 x10^3/uL (2.2-4.8); NEUTROPHILS % (AUTO) 67.2 % (42.0-75.0); PLATELET COUNT 195 X10^3/uL (150.0-450.0); RED BLOOD COUNT 3.26 X10^6/uL (4.7-6.0); RED CELL DISTRIBUTION WIDTH 16.8 % (11.6-16.5); WHITE BLOOD COUNT 6.9 X10^3/uL (3.6-10.0)
[2017-11-14 06:57] LABS: ALANINE AMINOTRANSFERASE 27 Units/L (12-78); ALBUMIN 1.5 g/dL (3.4-5.0); ALKALINE PHOSPHATASE 178 Units/L (46-116); ASPARTATE AMINO TRANSFERASE 29 Units/L (15-37); BLOOD UREA NITROGEN 6 mg/dL (7-18); CALCIUM 8.6 mg/dL (8.5-10.1); CARBON DIOXIDE 26.7 mmol/L (21-32); CHLORIDE 107 mmol/L (98-107); COR CA(FOR HYPOALB) 10.6 mg/dL (8.5-10.1); COR NA(FOR HYPERGLY) 143 mmol/L (136-145); CREATININE 0.65 mg/dL (0.70-1.30); SODIUM 140 mmol/L (136-145); TOTAL PROTEIN 5.9 g/dL (6.4-8.2); eGFR NON BLACK RACES > 60 (>60)
[2017-11-14] MEDS: PROTONIX INJ 40 MG VIAL IVP SCH ×2 (10:46→22:27)
[2017-11-14] MEDS: ROCEPHIN 1 GRAM IV PREMIX 1 G/50 ML IV.SOLN. IV SCH (10:46)
[2017-11-14] MEDS: ASPIRIN EC 81 MG PO SCH (10:46)
[2017-11-14] MEDS: K-DUR TAB 20 MEQ PO SCH (10:47)
[2017-11-14] MEDS: FOLIC ACID TAB 1 MG PO SCH (10:47)
[2017-11-14] MEDS: LASIX PO SCH (10:47)
[2017-11-14] MEDS: SINEMET (PLAIN) 25/100 MG PO SCH ×2 (10:48→22:27)
[2017-11-14] MEDS: COREG TAB 3.125 MG PO SCH ×2 (10:48→22:28)
[2017-11-14] MEDS: ISOSORBIDE DINITRATE PO SCH ×2 (10:49→22:27)
[2017-11-14] MEDS: LOVENOX INJ 30 MG SYR SC SCH ×2 (10:49→22:33)
[2017-11-14] MEDS: ANTIVERT TAB 25 MG PO SCH (10:51)
[2017-11-14] MEDS: PATIENT'S HOME MEDICATION PO SCH ×2 (11:03→22:35)
[2017-11-14] MEDS: CELEXA PO SCH (11:03)
[2017-11-14] MEDS: HumuLIN R SUBCUT PRN ×3 (14:42→23:30)
[2017-11-14] MEDS: K-LYTE EFFERVESCENT PO PRN (17:51)
[2017-11-14] MEDS: LEVAQUIN PREMIX IV 750 MG 750 MG/150 ML BAG IV SCH (21:00)
[2017-11-14] MEDS: MILK OF MAGNESIA PO SCH (22:26)
[2017-11-14] MEDS: ARICEPT TAB 10 MG PO SCH (22:28)
[2017-11-14] MEDS: COLACE CAP 100 MG PO SCH (22:28)
[2017-11-14] MEDS: SNACK - Diabetic Appropriate PO SCH (22:41)
[2017-11-15] MEDS: NS 1000 ML 1,000 ML IV SCH ×4 (04:25→16:28)
[2017-11-15 06:27] LABS: BASOPHILS % (AUTO) 0.3 % (0.2-1.0); EOSINOPHILS # (AUTO) 0.1 x10^3/uL (0.0-0.2); EOSINOPHILS % (AUTO) 1.5 % (0.9-2.9); HEMATOCRIT 27.9 % (42.0-54.0); HEMOGLOBIN 9.5 g/dL (13.5-18.0); LYMPHOCYTES # (AUTO) 1.3 X10^3/uL (1.3-2.9); LYMPHOCYTES % (AUTO) 19.1 % (21.0-51.0); MEAN CORPUSCULAR HEMOGLOBIN 27.7 pg (27.0-34.0); MEAN CORPUSCULAR VOLUME 81.3 fL (80.0-100.0); MONOCYTES # (AUTO) 0.6 x10^3/uL (0.3-0.8); MONOCYTES % (AUTO) 8.2 % (0.0-13.0); NEUTROPHILS # (AUTO) 4.9 x10^3/uL (2.2-4.8); NEUTROPHILS % (AUTO) 70.9 % (42.0-75.0); PLATELET COUNT 207 X10^3/uL (150.0-450.0); RED BLOOD COUNT 3.43 X10^6/uL (4.7-6.0); WHITE BLOOD COUNT 6.9 X10^3/uL (3.6-10.0)
[2017-11-15 07:02] LABS: ALANINE AMINOTRANSFERASE 20 Units/L (12-78); ALBUMIN 1.6 g/dL (3.4-5.0); ALKALINE PHOSPHATASE 164 Units/L (46-116); ASPARTATE AMINO TRANSFERASE 30 Units/L (15-37); BLOOD UREA NITROGEN 6 mg/dL (7-18); CALCIUM 8.6 mg/dL (8.5-10.1); CHLORIDE 105 mmol/L (98-107); COR CA(FOR HYPOALB) 10.5 mg/dL (8.5-10.1); COR NA(FOR HYPERGLY) 141 mmol/L (136-145); CREATININE 0.65 mg/dL (0.70-1.30); SODIUM 139 mmol/L (136-145); eGFR NON BLACK RACES > 60 (>60)
[2017-11-15] MEDS ORDERED: GLUCOPHAGE ONE ×2 (08:16→16:39)
[2017-11-15] MEDS: LOVENOX INJ 30 MG SYR SC SCH ×2 (09:26→20:33)
[2017-11-15] MEDS: GLUCOPHAGE PO SCH ×2 (09:27→16:47)
[2017-11-15] MEDS: ISOSORBIDE DINITRATE PO SCH ×2 (09:28→20:31)
[2017-11-15] MEDS: SINEMET (PLAIN) 25/100 MG PO SCH ×2 (09:28→20:31)
[2017-11-15] MEDS: PROTONIX INJ 40 MG VIAL IVP SCH ×2 (09:29→20:31)
[2017-11-15] MEDS: COREG TAB 3.125 MG PO SCH ×2 (09:29→20:31)
[2017-11-15] MEDS: ANTIVERT TAB 25 MG PO SCH (09:29)
[2017-11-15] MEDS: K-DUR TAB 20 MEQ PO SCH (09:30)
[2017-11-15] MEDS: CELEXA PO SCH (09:32)
[2017-11-15] MEDS: FOLIC ACID TAB 1 MG PO SCH (09:33)
[2017-11-15] MEDS: ASPIRIN EC 81 MG PO SCH (09:33)
[2017-11-15] MEDS: LASIX PO SCH (09:33)
[2017-11-15] MEDS: ROCEPHIN 1 GRAM IV PREMIX 1 G/50 ML IV.SOLN. IV SCH (09:34)
[2017-11-15] MEDS: PATIENT'S HOME MEDICATION PO SCH ×2 (09:35→20:32)
[2017-11-15] MEDS: HumuLIN R SUBCUT PRN ×3 (12:30→21:03)
--- NOTE | 2017-11-15 17:58 | PCM.PROG ---
Progress Note - Progress Note for Day of Date: 11/15/17 - Subjective Subjective: 72 WM ER ADMISSION AFTER PRESENTING WITH CO AMS DUE TO COMPLICATIONS WITH STAGE IV PANCREATIC CANCER. PT HAS DIFFUSE JAUNDICE . PT HAS FAMILY AT BEDSIDE. PT IS CURRENTLY ON NASAL CANULA WITH INCREASED ALERTNESS, TOLERATED DIET ADVANCEMENT, CO MILD INCREASE IN NAUSEA THIS AM, SPOUSE STATES HE HAS BEEN EATING MORE, PT INSTRUCTED TO RESTRICT DIET WITH NAUSEA. RENAL FUNCTION IMPROVING, CALM IMPROVED RESP DISTRESS. PT CO ABDOMINAL PAIN THIS AM, MORPHINE IV ORDERED PRN. BLOOD CULTURES POSITIVE, CURRENTLY SENSATIVE TO IV ATBX REGIMEN. FAMILY MET WITH [facility], PT WILL DC HOME WITH HOSPICE AFTER TREATMENT OF ACUTE ILLNESS PER FAMILY'S REQUEST TO COMPLETE IV ATBX REGIMEN - Past Medical Family Social History Past Med/Fam/Surg Hx: No changes since H&P Allergies: Allergies No Known Drug Allergies Allergy (Verified 11/05/17 07:56) - Review of Systems ROS: No change since H&P - Vital Signs and I&O's Vital Signs: Temperature 97.9 F Pulse Rate [Right Brachial] 73 Pulse Rate [Left Brachial] 70 Pulse Rate 75 Respiratory Rate 18 Blood Pressure [Left Arm] 124/67 Blood Pressure [Right Arm] 133/80 Blood Pressure 120/70 O2 Sat by Pulse Oximetry 98 Intake and Output: Intake & Output 11/13/17 11/14/17 11/15/17 11/16/17 11:59 11:59 11:59 11:59 Intake Total 2095 / 2095 3710 / 3710 3040 / 3040 2230 / 2230 Output Total 3650 / 3650 3375 / 3375 3700 / 3700 500 / 500 Balance -1555 / -1555 335 / 335 -660 / -660 1730 / 1730 - Physical Exam Oriented: Person Eyes: Other (SCLERA JAUNDICE) Ear: Normal Nose: Normal Throat: Dry Respiratory: Diminished Cardiovascular: Tachycardia, Edema : Normal Auscultation: Bowel Sounds: Decreased Tenderness: Diffuse Skin: Decreased Turgur, Other (SEVERE DIFFUSE JAUNDICE) Musculoskeletal: Motor Deficit, Instability Mood Description: Sad Affect: Quiet Speech Pattern: Clear, Appropriate - Laboratory and Diagnostics Result Diagrams: 11/15/17 05:10 11/15/17 05:10 Labs: 11/07/17 13:54 Urine,Clean Catch Urine Culture - Final 11/06/17 13:35 Stool Stool Culture - Final 11/06/17 13:35 Stool - Final 11/06/17 04:41 Blood Blood Culture - Final Klebsiella Pneumoniae 11/06/17 03:40 Blood Blood Culture - Final Klebsiella Pneumoniae Laboratory WBC 6.9 X10^3/uL (3.6-10.0) 11/15/17 05:10 RBC 3.43 X10^6/uL (4.7-6.0) L 11/15/17 05:10 Hgb 9.5 g/dL (13.5-18.0) L 11/15/17 05:10 Hct 27.9 % (42.0-54.0) L 11/15/17 05:10 MCV 81.3 fL (80.0-100.0) 11/15/17 05:10 MCH 27.7 pg (27.0-34.0) 11/15/17 05:10 MCHC 34.0 g/dL (33.0-35.0) 11/15/17 05:10 RDW 17.0 % (11.6-16.5) H 11/15/17 05:10 Plt Count 207 X10^3/uL (150.0-450.0) 11/15/17 05:10 Plt Count Comment Decreased (ADEQUATE) 11/08/17 04:35 MPV 8.0 fL (7.4-11.0) 11/15/17 05:10 Neut % (Auto) 70.9 % (42.0-75.0) 11/15/17 05:10 Lymph % (Auto) 19.1 % (21.0-51.0) L 11/15/17 05:10 [place] % (Auto) 8.2 % (0.0-13.0) 11/15/17 05:10 Eos % (Auto) 1.5 % (0.9-2.9) 11/15/17 05:10 Baso % (Auto) 0.3 % (0.2-1.0) 11/15/17 05:10 Neut # (Auto) 4.9 x10^3/uL (2.2-4.8) H 11/15/17 05:10 Lymph # (Auto) 1.3 X10^3/uL (1.3-2.9) 11/15/17 05:10 [place] # (Auto) 0.6 x10^3/uL (0.3-0.8) 11/15/17 05:10 Eos # (Auto) 0.1 x10^3/uL (0.0-0.2) 11/15/17 05:10 Baso # (Auto) 0.0 X10^3/uL (0.0-0.1) 11/15/17 05:10 Absolute Nucleated RBC 0.1 /100WBC 11/15/17 05:10 Total Counted 100 11/08/17 04:35 Neutrophils % (Manual) 76 % (39-76) 11/08/17 04:35 Lymphocytes % (Manual) 20 % (13-43) 11/08/17 04:35 Monocytes % (Manual) 4 % (4-9) 11/08/17 04:35 Plt Morphology Comment Normal (NORMAL) 11/08/17 04:35 RBC Morphology Normal (NORMAL) 11/08/17 04:35 Sodium 139 mmol/L (136-145) 11/15/17 05:10 Corrected Sodium 141 mmol/L (136-145) 11/15/17 05:10 Potassium 3.6 mmol/L (3.5-5.1) 11/15/17 05:10 Chloride 105 mmol/L (98-107) 11/15/17 05:10 Carbon Dioxide 26.0 mmol/L (21-32) 11/15/17 05:10 BUN 6 mg/dL (7-18) L 11/15/17 05:10 Creatinine 0.65 mg/dL (0.70-1.30) L 11/15/17 05:10 Est GFR (MDRD) Af Amer > 60 (>60) 11/15/17 05:10 Est GFR (MDRD) Non-Af > 60 (>60) 11/15/17 05:10 Glucose 188 mg/dL (65-99) H 11/15/17 05:10 POC Glucose (mg/dL) 309 mg/dL (65-99) H 11/15/17 16:44 Calcium 8.6 mg/dL (8.5-10.1) 11/15/17 05:10 Corrected Calcium 10.5 mg/dL (8.5-10.1) H 11/15/17 05:10 Magnesium 1.7 mg/dL (1.7-2.9) 11/12/17 04:41 Total Bilirubin 1.00 mg/dL (0.2-1.0) 11/15/17 05:10 AST 30 Units/L (15-37) 11/15/17 05:10 ALT 20 Units/L (12-78) 11/15/17 05:10 Alkaline Phosphatase 164 Units/L (46-116) H 11/15/17 05:10 Ammonia < 10 umol/L (11-32) L 11/05/17 08:55 Total Protein 6.0 g/dL (6.4-8.2) L 11/15/17 05:10 Albumin 1.6 g/dL (3.4-5.0) L 11/15/17 05:10 Globulin 4.4 g/dL (2.5-4.5) 11/15/17 05:10 Albumin/Globulin Ratio 0.4 Ratio (1.1-2.1) L 11/15/17 05:10 Specimen Type Random urine 11/05/17 08:09 Urine Color [place] (YELLOW) 11/05/17 08:09 Urine Appearance Clear (CLEAR) 11/05/17 08:09 Urine pH 7.0 (5.0 - 8.0) 11/05/17 08:09 Ur Specific [place] 1.005 (1.000-1.030) 11/05/17 08:09 Urine Protein 2+ (NEGATIVE) 11/05/17 08:09 Urine Glucose (UA) 4+ (NEGATIVE) 11/05/17 08:09 Urine Ketones Negative (NEGATIVE) 11/05/17 08:09 Urine Occult Blood Negative (NEGATIVE) 11/05/17 08:09 Urine Nitrite Negative (NEGATIVE) 11/05/17 08:09 Urine Bilirubin 1+ (NEGATIVE) 11/05/17 08:09 Urine Urobilinogen 3+ (NORMAL) 11/05/17 08:09 Ur Leukocyte Esterase 1+ (NEGATIVE) 11/05/17 08:09 Urine RBC 0-2 /HPF (NONE SEEN) 11/05/17 08:09 Urine WBC 0-2 /HPF (NONE SEEN) 11/05/17 08:09 Ur Squamous Epith Cells Rare /HPF (NEGATIVE) 11/05/17 08:09 Urine Bacteria Negative /HPF (NEGATIVE) 11/05/17 08:09 Urine Mucus Few /HPF (NEGATIVE) 11/05/17 08:09 Ur Culture Indicated? No/not indicated 11/05/17 08:09 Stool for White Cells Positive (NEGATIVE) A 11/06/17 13:37 Stl C. diff Tox B Gene Negative (NEGATIVE) 11/06/17 13:36 Stl C. diff 027-NAP1-BI Negative (NEGATIVE) 11/06/17 13:36 - Plan (1) Klebsiella pneumoniae sepsis Status: Acute Plan: IV ATBX, PICC LINE PLACEMENT. WILL ARRANGE FOR 14 DAYS IV ATBX AT HOME UPON D/C. CASE MANAGEMENT TO ARRANGE IN HOME CARE, DME (2) Pancreatic cancer Status: Acute Plan: SUPPORTIVE CARE, COMFORT MEASURES. CONSULT [facility]. RESP THERAPY PAIN CONTROL, NAUSEA CONTROL. IV ROCEPHIN, CULTURES PENDING (3) Fever Status: Acute (4) Pancreatic mass Status: Acute (5) Mental status alteration Status: Acute Qualifiers: Altered mental status type: transient alteration of awareness Qualified Code(s): R40.4 - Transient alteration of awareness (6) Generalized weakness Status: Acute (7) Hypertension Status: Chronic Qualifiers: Hypertension type: essential hypertension Qualified Code(s): I10 - Essential (primary) hypertension (8) Diabetes type 2, uncontrolled Status: Chronic (9) History of CVA (cerebrovascular accident) Status: Chronic
[2017-11-15] MEDS: LEVAQUIN PREMIX IV 750 MG 750 MG/150 ML BAG IV SCH (20:30)
[2017-11-15] MEDS: COLACE CAP 100 MG PO SCH (20:31)
[2017-11-15] MEDS: SNACK - Diabetic Appropriate PO SCH (20:31)
[2017-11-15] MEDS: MILK OF MAGNESIA PO SCH (20:32)
[2017-11-15] MEDS: ARICEPT TAB 10 MG PO SCH (20:32)
[2017-11-16] MEDS: NORCO 5/325 MG TAB PO PRN (03:30)
[2017-11-16] MEDS ORDERED: GLUCOPHAGE ONE ×2 (05:27→16:07)
[2017-11-16] MEDS: NS 1000 ML 1,000 ML IV SCH (05:37)
[2017-11-16] MEDS: GLUCOPHAGE PO SCH ×2 (06:07→16:30)
[2017-11-16 06:28] LABS: BASOPHILS % (AUTO) 0.4 % (0.2-1.0); EOSINOPHILS # (AUTO) 0.1 x10^3/uL (0.0-0.2); EOSINOPHILS % (AUTO) 1.7 % (0.9-2.9); HEMATOCRIT 28.5 % (42.0-54.0); HEMOGLOBIN 9.7 g/dL (13.5-18.0); LYMPHOCYTES # (AUTO) 1.3 X10^3/uL (1.3-2.9); MEAN CORPUSCULAR HEMOGLOBIN 27.8 pg (27.0-34.0); MEAN CORPUSCULAR VOLUME 81.8 fL (80.0-100.0); MONOCYTES # (AUTO) 0.6 x10^3/uL (0.3-0.8); MONOCYTES % (AUTO) 8.1 % (0.0-13.0); NEUTROPHILS # (AUTO) 5.2 x10^3/uL (2.2-4.8); NEUTROPHILS % (AUTO) 71.8 % (42.0-75.0); PLATELET COUNT 236 X10^3/uL (150.0-450.0); RED BLOOD COUNT 3.49 X10^6/uL (4.7-6.0); RED CELL DISTRIBUTION WIDTH 17.2 % (11.6-16.5); WHITE BLOOD COUNT 7.2 X10^3/uL (3.6-10.0)
[2017-11-16 06:43] LABS: ALANINE AMINOTRANSFERASE 26 Units/L (12-78); ALBUMIN 1.7 g/dL (3.4-5.0); ALKALINE PHOSPHATASE 144 Units/L (46-116); ASPARTATE AMINO TRANSFERASE 28 Units/L (15-37); BLOOD UREA NITROGEN 5 mg/dL (7-18); CALCIUM 8.5 mg/dL (8.5-10.1); CARBON DIOXIDE 29.7 mmol/L (21-32); CHLORIDE 106 mmol/L (98-107); COR CA(FOR HYPOALB) 10.3 mg/dL (8.5-10.1); COR NA(FOR HYPERGLY) 142 mmol/L (136-145); CREATININE 0.62 mg/dL (0.70-1.30); SODIUM 141 mmol/L (136-145); TOTAL PROTEIN 6.5 g/dL (6.4-8.2); eGFR NON BLACK RACES > 60 (>60)
[2017-11-16] MEDS: LOVENOX INJ 30 MG SYR SC SCH ×2 (09:00→20:47)
[2017-11-16] MEDS: CELEXA PO SCH (09:00)
[2017-11-16] MEDS: ROCEPHIN 1 GRAM IV PREMIX 1 G/50 ML IV.SOLN. IV SCH (09:00)
[2017-11-16] MEDS: LASIX PO SCH (09:00)
[2017-11-16] MEDS: ISOSORBIDE DINITRATE PO SCH ×2 (09:00→20:47)
[2017-11-16] MEDS: PATIENT'S HOME MEDICATION PO SCH ×2 (09:00→20:49)
[2017-11-16] MEDS: COREG TAB 3.125 MG PO SCH ×2 (09:00→20:47)
[2017-11-16] MEDS: PROTONIX INJ 40 MG VIAL IVP SCH ×2 (09:00→20:48)
[2017-11-16] MEDS: K-DUR TAB 20 MEQ PO SCH (09:00)
[2017-11-16] MEDS: SINEMET (PLAIN) 25/100 MG PO SCH ×2 (09:00→20:46)
[2017-11-16] MEDS: FOLIC ACID TAB 1 MG PO SCH (09:00)
[2017-11-16] MEDS: ANTIVERT TAB 25 MG PO SCH (09:00)
[2017-11-16] MEDS: ASPIRIN EC 81 MG PO SCH (10:11)
[2017-11-16] MEDS: HumuLIN R SUBCUT PRN ×3 (12:15→20:49)
--- NOTE | 2017-11-16 17:56 | PCM.PROG ---
Progress Note - Subjective Subjective: 72 WM ER ADMISSION AFTER PRESENTING WITH CO AMS DUE TO COMPLICATIONS WITH STAGE IV PANCREATIC CANCER. PT HAS DIFFUSE JAUNDICE . PT HAS FAMILY AT BEDSIDE. PT IS CURRENTLY ON NASAL CANULA WITH INCREASED ALERTNESS, TOLERATED DIET ADVANCEMENT, CO MILD INCREASE IN NAUSEA THIS AM, SPOUSE STATES HE HAS BEEN EATING MORE, PT INSTRUCTED TO RESTRICT DIET WITH NAUSEA. RENAL FUNCTION IMPROVING, CALM IMPROVED RESP DISTRESS. PT CO ABDOMINAL PAIN THIS AM, MORPHINE IV ORDERED PRN. BLOOD CULTURES POSITIVE, CURRENTLY SENSATIVE TO IV ATBX REGIMEN. FAMILY MET WITH [facility], PT WILL DC HOME WITH HOSPICE AFTER TREATMENT OF ACUTE ILLNESS PER FAMILY'S REQUEST TO COMPLETE IV ATBX REGIMEN - Past Medical Family Social History Past Med/Fam/Surg Hx: No changes since H&P Allergies: Allergies No Known Drug Allergies Allergy (Verified 11/05/17 07:56) - Review of Systems ROS: No change since H&P - Vital Signs and I&O's Vital Signs: Temperature 98.5 F Pulse Rate [Right Brachial] 69 Pulse Rate [Left Brachial] 70 Pulse Rate 80 Respiratory Rate 20 Blood Pressure [Left Arm] 121/57 Blood Pressure [Right Arm] 133/80 Blood Pressure 120/70 O2 Sat by Pulse Oximetry 100 Intake and Output: Intake & Output 11/14/17 11/15/17 11/16/17 11/17/17 11:59 11:59 11:59 11:59 Intake Total 3710 / 3710 3040 / 3040 3039 / 3039 900 / 900 Output Total 3375 / 3375 3700 / 3700 2700 / 2700 700 / 700 Balance 335 / 335 -660 / -660 339 / 339 200 / 200 - Physical Exam Oriented: Person Eyes: Other (SCLERA JAUNDICE) Ear: Normal Nose: Normal Throat: Dry Respiratory: Diminished Cardiovascular: Tachycardia, Edema : Normal Auscultation: Bowel Sounds: Decreased Tenderness: Diffuse Skin: Decreased Turgur, Other (SEVERE DIFFUSE JAUNDICE) Musculoskeletal: Motor Deficit, Instability Mood Description: Sad Affect: Quiet Speech Pattern: Clear, Appropriate - Laboratory and Diagnostics Result Diagrams: 11/16/17 05:32 11/16/17 05:32 Labs: 11/07/17 13:54 Urine,Clean Catch Urine Culture - Final 11/06/17 13:35 Stool Stool Culture - Final 11/06/17 13:35 Stool - Final 11/06/17 04:41 Blood Blood Culture - Final Klebsiella Pneumoniae 11/06/17 03:40 Blood Blood Culture - Final Klebsiella Pneumoniae Laboratory WBC 7.2 X10^3/uL (3.6-10.0) 11/16/17 05:32 RBC 3.49 X10^6/uL (4.7-6.0) L 11/16/17 05:32 Hgb 9.7 g/dL (13.5-18.0) L 11/16/17 05:32 Hct 28.5 % (42.0-54.0) L 11/16/17 05:32 MCV 81.8 fL (80.0-100.0) 11/16/17 05:32 MCH 27.8 pg (27.0-34.0) 11/16/17 05:32 MCHC 34.0 g/dL (33.0-35.0) 11/16/17 05:32 RDW 17.2 % (11.6-16.5) H 11/16/17 05:32 Plt Count 236 X10^3/uL (150.0-450.0) 11/16/17 05:32 Plt Count Comment Decreased (ADEQUATE) 11/08/17 04:35 MPV 8.0 fL (7.4-11.0) 11/16/17 05:32 Neut % (Auto) 71.8 % (42.0-75.0) 11/16/17 05:32 Lymph % (Auto) 18.0 % (21.0-51.0) L 11/16/17 05:32 [place] % (Auto) 8.1 % (0.0-13.0) 11/16/17 05:32 Eos % (Auto) 1.7 % (0.9-2.9) 11/16/17 05:32 Baso % (Auto) 0.4 % (0.2-1.0) 11/16/17 05:32 Neut # (Auto) 5.2 x10^3/uL (2.2-4.8) H 11/16/17 05:32 Lymph # (Auto) 1.3 X10^3/uL (1.3-2.9) 11/16/17 05:32 [place] # (Auto) 0.6 x10^3/uL (0.3-0.8) 11/16/17 05:32 Eos # (Auto) 0.1 x10^3/uL (0.0-0.2) 11/16/17 05:32 Baso # (Auto) 0.0 X10^3/uL (0.0-0.1) 11/16/17 05:32 Absolute Nucleated RBC 0.0 /100WBC 11/16/17 05:32 Total Counted 100 11/08/17 04:35 Neutrophils % (Manual) 76 % (39-76) 11/08/17 04:35 Lymphocytes % (Manual) 20 % (13-43) 11/08/17 04:35 Monocytes % (Manual) 4 % (4-9) 11/08/17 04:35 Plt Morphology Comment Normal (NORMAL) 11/08/17 04:35 RBC Morphology Normal (NORMAL) 11/08/17 04:35 Sodium 141 mmol/L (136-145) 11/16/17 05:32 Corrected Sodium 142 mmol/L (136-145) 11/16/17 05:32 Potassium 3.6 mmol/L (3.5-5.1) 11/16/17 05:32 Chloride 106 mmol/L (98-107) 11/16/17 05:32 Carbon Dioxide 29.7 mmol/L (21-32) 11/16/17 05:32 BUN 5 mg/dL (7-18) L 11/16/17 05:32 Creatinine 0.62 mg/dL (0.70-1.30) L 11/16/17 05:32 Est GFR (MDRD) Af Amer > 60 (>60) 11/16/17 05:32 Est GFR (MDRD) Non-Af > 60 (>60) 11/16/17 05:32 Glucose 139 mg/dL (65-99) H 11/16/17 05:32 POC Glucose (mg/dL) 245 mg/dL (65-99) H 11/16/17 11:15 Calcium 8.5 mg/dL (8.5-10.1) 11/16/17 05:32 Corrected Calcium 10.3 mg/dL (8.5-10.1) H 11/16/17 05:32 Magnesium 1.7 mg/dL (1.7-2.9) 11/12/17 04:41 Total Bilirubin 0.90 mg/dL (0.2-1.0) 11/16/17 05:32 AST 28 Units/L (15-37) 11/16/17 05:32 ALT 26 Units/L (12-78) 11/16/17 05:32 Alkaline Phosphatase 144 Units/L (46-116) H 11/16/17 05:32 Ammonia < 10 umol/L (11-32) L 11/05/17 08:55 Total Protein 6.5 g/dL (6.4-8.2) 11/16/17 05:32 Albumin 1.7 g/dL (3.4-5.0) L 11/16/17 05:32 Globulin 4.8 g/dL (2.5-4.5) H 11/16/17 05:32 Albumin/Globulin Ratio 0.4 Ratio (1.1-2.1) L 11/16/17 05:32 Specimen Type Random urine 11/05/17 08:09 Urine Color [place] (YELLOW) 11/05/17 08:09 Urine Appearance Clear (CLEAR) 11/05/17 08:09 Urine pH 7.0 (5.0 - 8.0) 11/05/17 08:09 Ur Specific [place] 1.005 (1.000-1.030) 11/05/17 08:09 Urine Protein 2+ (NEGATIVE) 11/05/17 08:09 Urine Glucose (UA) 4+ (NEGATIVE) 11/05/17 08:09 Urine Ketones Negative (NEGATIVE) 11/05/17 08:09 Urine Occult Blood Negative (NEGATIVE) 11/05/17 08:09 Urine Nitrite Negative (NEGATIVE) 11/05/17 08:09 Urine Bilirubin 1+ (NEGATIVE) 11/05/17 08:09 Urine Urobilinogen 3+ (NORMAL) 11/05/17 08:09 Ur Leukocyte Esterase 1+ (NEGATIVE) 11/05/17 08:09 Urine RBC 0-2 /HPF (NONE SEEN) 11/05/17 08:09 Urine WBC 0-2 /HPF (NONE SEEN) 11/05/17 08:09 Ur Squamous Epith Cells Rare /HPF (NEGATIVE) 11/05/17 08:09 Urine Bacteria Negative /HPF (NEGATIVE) 11/05/17 08:09 Urine Mucus Few /HPF (NEGATIVE) 11/05/17 08:09 Ur Culture Indicated? No/not indicated 11/05/17 08:09 Stool for White Cells Positive (NEGATIVE) A 11/06/17 13:37 Stl C. diff Tox B Gene Negative (NEGATIVE) 11/06/17 13:36 Stl C. diff 027-NAP1-BI Negative (NEGATIVE) 11/06/17 13:36 - Plan (1) Klebsiella pneumoniae sepsis Status: Acute Plan: IV ATBX, PICC LINE PLACEMENT. WILL ARRANGE FOR 14 DAYS IV ATBX AT HOME UPON D/C. CASE MANAGEMENT TO ARRANGE IN HOME CARE, DME (2) Pancreatic cancer Status: Acute Plan: SUPPORTIVE CARE, COMFORT MEASURES. CONSULT [facility]. RESP THERAPY PAIN CONTROL, NAUSEA CONTROL. IV ROCEPHIN, CULTURES PENDING (3) Fever Status: Acute (4) Pancreatic mass Status: Acute (5) Mental status alteration Status: Acute Qualifiers: Altered mental status type: transient alteration of awareness Qualified Code(s): R40.4 - Transient alteration of awareness (6) Generalized weakness Status: Acute (7) Hypertension Status: Chronic Qualifiers: Hypertension type: essential hypertension Qualified Code(s): I10 - Essential (primary) hypertension (8) Diabetes type 2, uncontrolled Status: Chronic (9) History of CVA (cerebrovascular accident) Status: Chronic
[2017-11-16] MEDS: LEVAQUIN PREMIX IV 750 MG 750 MG/150 ML BAG IV SCH (20:45)
[2017-11-16] MEDS: COLACE CAP 100 MG PO SCH (20:46)
[2017-11-16] MEDS: SNACK - Diabetic Appropriate PO SCH (20:46)
[2017-11-16] MEDS: MILK OF MAGNESIA PO SCH (20:50)
[2017-11-16] MEDS: ARICEPT TAB 10 MG PO SCH (20:51)
[2017-11-16] MEDS ORDERED: BUTT CREAM (COMPOUND) TOP PRN (21:00)
[2017-11-17] MEDS: NS 1000 ML 1,000 ML IV SCH ×3 (01:00→21:15)
[2017-11-17] MEDS ORDERED: GLUCOPHAGE ONE ×2 (05:08→16:38)
[2017-11-17 05:37] LABS: BASOPHILS % (AUTO) 0.5 % (0.2-1.0); EOSINOPHILS # (AUTO) 0.1 x10^3/uL (0.0-0.2); EOSINOPHILS % (AUTO) 1.9 % (0.9-2.9); HEMATOCRIT 29.2 % (42.0-54.0); HEMOGLOBIN 9.6 g/dL (13.5-18.0); LYMPHOCYTES # (AUTO) 1.2 X10^3/uL (1.3-2.9); LYMPHOCYTES % (AUTO) 21.5 % (21.0-51.0); MEAN CORPUSCULAR HEMOGLOBIN 27.4 pg (27.0-34.0); MEAN CORPUSCULAR VOLUME 83.1 fL (80.0-100.0); MEAN PLATELET VOLUME 8.1 fL (7.4-11.0); MONOCYTES # (AUTO) 0.5 x10^3/uL (0.3-0.8); MONOCYTES % (AUTO) 8.2 % (0.0-13.0); NEUTROPHILS # (AUTO) 3.8 x10^3/uL (2.2-4.8); NEUTROPHILS % (AUTO) 67.9 % (42.0-75.0); PLATELET COUNT 232 X10^3/uL (150.0-450.0); RED BLOOD COUNT 3.52 X10^6/uL (4.7-6.0); RED CELL DISTRIBUTION WIDTH 17.8 % (11.6-16.5); WHITE BLOOD COUNT 5.6 X10^3/uL (3.6-10.0)
[2017-11-17 05:48] LABS: ALANINE AMINOTRANSFERASE 22 Units/L (12-78); ALBUMIN 1.7 g/dL (3.4-5.0); ALKALINE PHOSPHATASE 143 Units/L (46-116); ASPARTATE AMINO TRANSFERASE 22 Units/L (15-37); BLOOD UREA NITROGEN 6 mg/dL (7-18); CALCIUM 8.7 mg/dL (8.5-10.1); CARBON DIOXIDE 27.6 mmol/L (21-32); CHLORIDE 107 mmol/L (98-107); COR CA(FOR HYPOALB) 10.5 mg/dL (8.5-10.1); COR NA(FOR HYPERGLY) 141 mmol/L (136-145); CREATININE 0.63 mg/dL (0.70-1.30); SODIUM 140 mmol/L (136-145); eGFR NON BLACK RACES > 60 (>60)
[2017-11-17] MEDS: GLUCOPHAGE PO SCH ×2 (06:11→16:44)
[2017-11-17] MEDS: ISOSORBIDE DINITRATE PO SCH ×2 (09:07→21:11)
[2017-11-17] MEDS: LASIX PO SCH (09:07)
[2017-11-17] MEDS: K-DUR TAB 20 MEQ PO SCH (09:08)
[2017-11-17] MEDS: CELEXA PO SCH (09:08)
[2017-11-17] MEDS: FOLIC ACID TAB 1 MG PO SCH (09:08)
[2017-11-17] MEDS: PROTONIX INJ 40 MG VIAL IVP SCH ×2 (09:08→21:11)
[2017-11-17] MEDS: COREG TAB 3.125 MG PO SCH ×2 (09:09→21:12)
[2017-11-17] MEDS: ANTIVERT TAB 25 MG PO SCH (09:09)
[2017-11-17] MEDS: ASPIRIN EC 81 MG PO SCH (09:09)
[2017-11-17] MEDS: ROCEPHIN 1 GRAM IV PREMIX 1 G/50 ML IV.SOLN. IV SCH (09:10)
[2017-11-17] MEDS: PATIENT'S HOME MEDICATION PO SCH ×2 (09:11→21:15)
[2017-11-17] MEDS: SINEMET (PLAIN) 25/100 MG PO SCH ×2 (09:12→21:11)
[2017-11-17] MEDS: LOVENOX INJ 30 MG SYR SC SCH ×2 (09:12→21:13)
[2017-11-17] MEDS: HumuLIN R SUBCUT PRN ×3 (12:57→21:28)
--- NOTE | 2017-11-17 13:46 | PCM.PROG ---
Progress Note - Progress Note for Day of Date of Exam: 11/17/17 - Subjective Subjective: 72 WM ER ADMISSION AFTER PRESENTING WITH CO AMS DUE TO COMPLICATIONS WITH STAGE IV PANCREATIC CANCER. PT HAS DIFFUSE JAUNDICE . PT HAS FAMILY AT BEDSIDE. PT IS CURRENTLY ON NASAL CANULA WITH INCREASED ALERTNESS, TOLERATED DIET ADVANCEMENT, CO MILD INCREASE IN NAUSEA THIS AM, SPOUSE STATES HE HAS BEEN EATING MORE, PT INSTRUCTED TO RESTRICT DIET WITH NAUSEA. RENAL FUNCTION IMPROVING, CALM IMPROVED RESP DISTRESS. PT CO ABDOMINAL PAIN THIS AM, MORPHINE IV ORDERED PRN. BLOOD CULTURES POSITIVE, CURRENTLY SENSATIVE TO IV ATBX REGIMEN. FAMILY MET WITH [facility], PT WILL DC HOME WITH HOSPICE AFTER TREATMENT OF ACUTE ILLNESS PER FAMILY'S REQUEST TO COMPLETE IV ATBX REGIMEN - Past Medical Family Social History Past Med/Fam/Surg Hx: No changes since H&P Allergies: Allergies No Known Drug Allergies Allergy (Verified 11/05/17 07:56) - Review of Systems ROS: No change since H&P - Vital Signs and I&O's Vital Signs: Temperature 97.8 F Pulse Rate [Right Brachial] 80 Pulse Rate [Left Brachial] 70 Pulse Rate 73 Respiratory Rate 20 Blood Pressure [Left Arm] 135/73 Blood Pressure [Right Arm] 133/80 Blood Pressure 120/70 O2 Sat by Pulse Oximetry 100 Intake and Output: Intake & Output 11/15/17 11/16/17 11/17/17 11/18/17 11:59 11:59 11:59 11:59 Intake Total 3040 / 3040 3039 / 3039 1979 / 1979 Output Total 3700 / 3700 2700 / 2700 1470 / 1470 Balance -660 / -660 339 / 339 510 / 510 - Physical Exam Oriented: Person Eyes: Other (SCLERA JAUNDICE) Ear: Normal Nose: Normal Throat: Dry Respiratory: Diminished Cardiovascular: Tachycardia, Edema : Normal Auscultation: Bowel Sounds: Decreased Tenderness: Diffuse Skin: Decreased Turgur, Other (SEVERE DIFFUSE JAUNDICE) Musculoskeletal: Motor Deficit, Instability Mood Description: Sad Affect: Quiet Speech Pattern: Clear, Appropriate - Laboratory and Diagnostics Result Diagrams: 11/17/17 04:45 11/17/17 04:45 Labs: 11/07/17 13:54 Urine,Clean Catch Urine Culture - Final 11/06/17 13:35 Stool Stool Culture - Final 11/06/17 13:35 Stool - Final 11/06/17 04:41 Blood Blood Culture - Final Klebsiella Pneumoniae 11/06/17 03:40 Blood Blood Culture - Final Klebsiella Pneumoniae Laboratory WBC 5.6 X10^3/uL (3.6-10.0) 11/17/17 04:45 RBC 3.52 X10^6/uL (4.7-6.0) L 11/17/17 04:45 Hgb 9.6 g/dL (13.5-18.0) L 11/17/17 04:45 Hct 29.2 % (42.0-54.0) L 11/17/17 04:45 MCV 83.1 fL (80.0-100.0) 11/17/17 04:45 MCH 27.4 pg (27.0-34.0) 11/17/17 04:45 MCHC 33.0 g/dL (33.0-35.0) 11/17/17 04:45 RDW 17.8 % (11.6-16.5) H 11/17/17 04:45 Plt Count 232 X10^3/uL (150.0-450.0) 11/17/17 04:45 Plt Count Comment Decreased (ADEQUATE) 11/08/17 04:35 MPV 8.1 fL (7.4-11.0) 11/17/17 04:45 Neut % (Auto) 67.9 % (42.0-75.0) 11/17/17 04:45 Lymph % (Auto) 21.5 % (21.0-51.0) 11/17/17 04:45 [place] % (Auto) 8.2 % (0.0-13.0) 11/17/17 04:45 Eos % (Auto) 1.9 % (0.9-2.9) 11/17/17 04:45 Baso % (Auto) 0.5 % (0.2-1.0) 11/17/17 04:45 Neut # (Auto) 3.8 x10^3/uL (2.2-4.8) 11/17/17 04:45 Lymph # (Auto) 1.2 X10^3/uL (1.3-2.9) L 11/17/17 04:45 [place] # (Auto) 0.5 x10^3/uL (0.3-0.8) 11/17/17 04:45 Eos # (Auto) 0.1 x10^3/uL (0.0-0.2) 11/17/17 04:45 Baso # (Auto) 0.0 X10^3/uL (0.0-0.1) 11/17/17 04:45 Absolute Nucleated RBC 0.0 /100WBC 11/17/17 04:45 Total Counted 100 11/08/17 04:35 Neutrophils % (Manual) 76 % (39-76) 11/08/17 04:35 Lymphocytes % (Manual) 20 % (13-43) 11/08/17 04:35 Monocytes % (Manual) 4 % (4-9) 11/08/17 04:35 Plt Morphology Comment Normal (NORMAL) 11/08/17 04:35 RBC Morphology Normal (NORMAL) 11/08/17 04:35 Sodium 140 mmol/L (136-145) 11/17/17 04:45 Corrected Sodium 141 mmol/L (136-145) 11/17/17 04:45 Potassium 3.5 mmol/L (3.5-5.1) 11/17/17 04:45 Chloride 107 mmol/L (98-107) 11/17/17 04:45 Carbon Dioxide 27.6 mmol/L (21-32) 11/17/17 04:45 BUN 6 mg/dL (7-18) L 11/17/17 04:45 Creatinine 0.63 mg/dL (0.70-1.30) L 11/17/17 04:45 Est GFR (MDRD) Af Amer > 60 (>60) 11/17/17 04:45 Est GFR (MDRD) Non-Af > 60 (>60) 11/17/17 04:45 Glucose 157 mg/dL (65-99) H 11/17/17 04:45 POC Glucose (mg/dL) 204 mg/dL (65-99) H 11/17/17 11:08 Calcium 8.7 mg/dL (8.5-10.1) 11/17/17 04:45 Corrected Calcium 10.5 mg/dL (8.5-10.1) H 11/17/17 04:45 Magnesium 1.7 mg/dL (1.7-2.9) 11/12/17 04:41 Total Bilirubin 0.80 mg/dL (0.2-1.0) 11/17/17 04:45 AST 22 Units/L (15-37) 11/17/17 04:45 ALT 22 Units/L (12-78) 11/17/17 04:45 Alkaline Phosphatase 143 Units/L (46-116) H 11/17/17 04:45 Ammonia < 10 umol/L (11-32) L 11/05/17 08:55 Total Protein 6.0 g/dL (6.4-8.2) L 11/17/17 04:45 Albumin 1.7 g/dL (3.4-5.0) L 11/17/17 04:45 Globulin 4.3 g/dL (2.5-4.5) 11/17/17 04:45 Albumin/Globulin Ratio 0.4 Ratio (1.1-2.1) L 11/17/17 04:45 Specimen Type Random urine 11/05/17 08:09 Urine Color [place] (YELLOW) 11/05/17 08:09 Urine Appearance Clear (CLEAR) 11/05/17 08:09 Urine pH 7.0 (5.0 - 8.0) 11/05/17 08:09 Ur Specific [place] 1.005 (1.000-1.030) 11/05/17 08:09 Urine Protein 2+ (NEGATIVE) 11/05/17 08:09 Urine Glucose (UA) 4+ (NEGATIVE) 11/05/17 08:09 Urine Ketones Negative (NEGATIVE) 11/05/17 08:09 Urine Occult Blood Negative (NEGATIVE) 11/05/17 08:09 Urine Nitrite Negative (NEGATIVE) 11/05/17 08:09 Urine Bilirubin 1+ (NEGATIVE) 11/05/17 08:09 Urine Urobilinogen 3+ (NORMAL) 11/05/17 08:09 Ur Leukocyte Esterase 1+ (NEGATIVE) 11/05/17 08:09 Urine RBC 0-2 /HPF (NONE SEEN) 11/05/17 08:09 Urine WBC 0-2 /HPF (NONE SEEN) 11/05/17 08:09 Ur Squamous Epith Cells Rare /HPF (NEGATIVE) 11/05/17 08:09 Urine Bacteria Negative /HPF (NEGATIVE) 11/05/17 08:09 Urine Mucus Few /HPF (NEGATIVE) 11/05/17 08:09 Ur Culture Indicated? No/not indicated 11/05/17 08:09 Stool for White Cells Positive (NEGATIVE) A 11/06/17 13:37 Stl C. diff Tox B Gene Negative (NEGATIVE) 11/06/17 13:36 Stl C. diff 027-NAP1-BI Negative (NEGATIVE) 11/06/17 13:36 - Plan (1) Klebsiella pneumoniae sepsis Status: Acute Plan: IV ATBX, PICC LINE PLACEMENT. WILL ARRANGE FOR 14 DAYS IV ATBX AT HOME UPON D/C. CASE MANAGEMENT TO ARRANGE IN HOME CARE, DME (2) Pancreatic cancer Status: Acute Plan: SUPPORTIVE CARE, COMFORT MEASURES. CONSULT [facility]. RESP THERAPY PAIN CONTROL, NAUSEA CONTROL. IV ROCEPHIN, CULTURES PENDING (3) Fever Status: Acute (4) Pancreatic mass Status: Acute (5) Mental status alteration Status: Acute Qualifiers: Altered mental status type: transient alteration of awareness Qualified Code(s): R40.4 - Transient alteration of awareness (6) Generalized weakness Status: Acute (7) Hypertension Status: Chronic Qualifiers: Hypertension type: essential hypertension Qualified Code(s): I10 - Essential (primary) hypertension (8) Diabetes type 2, uncontrolled Status: Chronic (9) History of CVA (cerebrovascular accident) Status: Chronic
[2017-11-17] MEDS: LEVAQUIN PREMIX IV 750 MG 750 MG/150 ML BAG IV SCH (20:08)
[2017-11-17] MEDS: SNACK - Diabetic Appropriate PO SCH (20:08)
[2017-11-17] MEDS: ARICEPT TAB 10 MG PO SCH (21:12)
[2017-11-17] MEDS: COLACE CAP 100 MG PO SCH (21:12)
[2017-11-17] MEDS: MILK OF MAGNESIA PO SCH (21:14)
[2017-11-18] MEDS ORDERED: GLUCOPHAGE ONE ×2 (05:02→16:32)
[2017-11-18 05:34] LABS: BASOPHILS # (AUTO) 0.1 X10^3/uL (0.0-0.1); BASOPHILS % (AUTO) 1.1 % (0.2-1.0); EOSINOPHILS # (AUTO) 0.2 x10^3/uL (0.0-0.2); EOSINOPHILS % (AUTO) 1.5 % (0.9-2.9); HEMATOCRIT 31.8 % (42.0-54.0); HEMOGLOBIN 10.6 g/dL (13.5-18.0); LYMPHOCYTES # (AUTO) 2.2 X10^3/uL (1.3-2.9); LYMPHOCYTES % (AUTO) 18.3 % (21.0-51.0); MEAN CORPUSCULAR HEMOGLOBIN 27.6 pg (27.0-34.0); MEAN CORPUSCULAR HGB CONC 33.3 g/dL (33.0-35.0); MEAN CORPUSCULAR VOLUME 83.1 fL (80.0-100.0); MEAN PLATELET VOLUME 8.4 fL (7.4-11.0); MONOCYTES % (AUTO) 8.3 % (0.0-13.0); NEUTROPHILS # (AUTO) 8.6 x10^3/uL (2.2-4.8); NEUTROPHILS % (AUTO) 70.8 % (42.0-75.0); PLATELET COUNT 237 X10^3/uL (150.0-450.0); RED BLOOD COUNT 3.83 X10^6/uL (4.7-6.0); RED CELL DISTRIBUTION WIDTH 18.1 % (11.6-16.5)
[2017-11-18 05:50] LABS: ALANINE AMINOTRANSFERASE 15 Units/L (12-78); ALBUMIN 1.9 g/dL (3.4-5.0); ALKALINE PHOSPHATASE 142 Units/L (46-116); ASPARTATE AMINO TRANSFERASE 37 Units/L (15-37); BLOOD UREA NITROGEN 6 mg/dL (7-18); CALCIUM 8.7 mg/dL (8.5-10.1); CARBON DIOXIDE 27.1 mmol/L (21-32); CHLORIDE 104 mmol/L (98-107); COR CA(FOR HYPOALB) 10.4 mg/dL (8.5-10.1); CREATININE 0.56 mg/dL (0.70-1.30); SODIUM 140 mmol/L (136-145); TOTAL PROTEIN 6.7 g/dL (6.4-8.2); eGFR NON BLACK RACES > 60 (>60)
[2017-11-18 05:59] LABS: WHITE BLOOD COUNT 14.4 X10^3/uL (3.6-10.0)
[2017-11-18 06:00] LABS: PLATELET MORPHOLOGY COMMENT NORMAL (NORMAL)
[2017-11-18] MEDS: GLUCOPHAGE PO SCH ×2 (06:10→16:44)
[2017-11-18] MEDS: ASPIRIN EC 81 MG PO SCH (09:00)
[2017-11-18] MEDS: K-DUR TAB 20 MEQ PO SCH (09:00)
[2017-11-18] MEDS: LOVENOX INJ 30 MG SYR SC SCH ×2 (09:00→22:05)
[2017-11-18] MEDS: ISOSORBIDE DINITRATE PO SCH ×2 (09:00→22:05)
[2017-11-18] MEDS: COREG TAB 3.125 MG PO SCH ×2 (09:00→22:03)
[2017-11-18] MEDS: FOLIC ACID TAB 1 MG PO SCH (09:00)
[2017-11-18] MEDS: LASIX PO SCH (09:00)
[2017-11-18] MEDS: CELEXA PO SCH (09:00)
--- NOTE | 2017-11-18 09:25 | RAD ---
History: CHF, COPD, pancreatic cancer, comparison 11/11/2017 Study: Portable chest Findings: Portable AP semi-erect chest labeled 9:03 a.m. shows the cardiac silhouette to be enlarged. 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 The pulmonary vasculature appears at upper limits normal. There is some opacity in the left base which may be due to fluid or consolidation. Minor linear opaci ty in the region of the middle lobe is seen laterally suggestive of atelectasis. The right-sided PICC remains in place. Impression: 1. Left basilar opacity which may reflect consolidation or fluid. 2. Linear opacity right middle lobe most compatible with atelectasis. 3. No overt CHF. 4. The left-sided dual lead cardiac pacer is unchanged in appearance. Reported By:
[2017-11-18] MEDS: ANTIVERT TAB 25 MG PO SCH (09:59)
[2017-11-18] MEDS: NS 1000 ML 1,000 ML IV SCH (10:01)
[2017-11-18] MEDS: PATIENT'S HOME MEDICATION PO SCH ×2 (10:05→22:16)
[2017-11-18] MEDS: ROCEPHIN 1 GRAM IV PREMIX 1 G/50 ML IV.SOLN. IV SCH (10:06)
[2017-11-18] MEDS: SINEMET (PLAIN) 25/100 MG PO SCH ×2 (10:06→22:04)
[2017-11-18] MEDS: PROTONIX INJ 40 MG VIAL IVP SCH ×2 (10:06→22:06)
[2017-11-18] MEDS: NORCO 5/325 MG TAB PO PRN (10:14)
[2017-11-18] MEDS: HumuLIN R SUBCUT PRN ×3 (11:39→22:07)
--- NOTE | 2017-11-18 13:38 | PCM.PROG ---
Progress Note - Progress Note for Day of Date of Exam: 11/18/17 - Subjective Subjective: 72 WM ER ADMISSION AFTER PRESENTING WITH CO AMS DUE TO COMPLICATIONS WITH STAGE IV PANCREATIC CANCER. PT HAS DIFFUSE JAUNDICE . PT HAS FAMILY AT BEDSIDE. PT IS CURRENTLY ON NASAL CANULA WITH INCREASED ALERTNESS, TOLERATED DIET ADVANCEMENT, CO MILD INCREASE IN NAUSEA THIS AM, SPOUSE STATES HE HAS BEEN EATING MORE, PT INSTRUCTED TO RESTRICT DIET WITH NAUSEA. RENAL FUNCTION IMPROVING, CALM IMPROVED RESP DISTRESS. PT CO ABDOMINAL PAIN THIS AM, MORPHINE IV ORDERED PRN. BLOOD CULTURES POSITIVE, CURRENTLY SENSATIVE TO IV ATBX REGIMEN. FAMILY MET WITH [facility], PT WILL DC HOME WITH HOSPICE AFTER TREATMENT OF ACUTE ILLNESS PER FAMILY'S REQUEST TO COMPLETE IV ATBX REGIMEN. CXR THIS AM, LASIX 20MG IV X 1 DOSE - Past Medical Family Social History Past Med/Fam/Surg Hx: No changes since H&P Allergies: Allergies No Known Drug Allergies Allergy (Verified 11/05/17 07:56) - Review of Systems ROS: No change since H&P - Vital Signs and I&O's Vital Signs: Temperature 97.7 F Pulse Rate [Right Brachial] 76 Pulse Rate [Left Brachial] 70 Pulse Rate 76 Respiratory Rate 18 Blood Pressure [Left Arm] 110/69 Blood Pressure [Right Arm] 133/80 Blood Pressure 120/70 O2 Sat by Pulse Oximetry 100 Intake and Output: Intake & Output 11/16/17 11/17/17 11/18/17 11/19/17 11:59 11:59 11:59 11:59 Intake Total 3039 / 3039 1979 / 1979 1770 / 1770 Output Total 2700 / 2700 1470 / 1470 2825 / 2825 Balance 339 / 339 510 / 510 -1055 / -1055 - Physical Exam Oriented: Person Eyes: Other (SCLERA JAUNDICE) Ear: Normal Nose: Normal Throat: Dry Respiratory: Diminished Cardiovascular: Tachycardia, Edema : Normal Auscultation: Bowel Sounds: Decreased Tenderness: Diffuse Skin: Decreased [place], Other (SEVERE DIFFUSE JAUNDICE) Musculoskeletal: Motor Deficit, Instability Mood Description: Sad Affect: Quiet Speech Pattern: Clear, Appropriate - Laboratory and Diagnostics Result Diagrams: 11/18/17 05:00 11/18/17 05:00 Labs: 11/07/17 13:54 Urine,Clean Catch Urine Culture - Final 11/06/17 13:35 Stool Stool Culture - Final 11/06/17 13:35 Stool - Final 11/06/17 04:41 Blood Blood Culture - Final Klebsiella Pneumoniae 11/06/17 03:40 Blood Blood Culture - Final Klebsiella Pneumoniae Laboratory WBC 14.4 X10^3/uL (3.6-10.0) H D 11/18/17 05:00 RBC 3.83 X10^6/uL (4.7-6.0) L 11/18/17 05:00 Hgb 10.6 g/dL (13.5-18.0) L 11/18/17 05:00 Hct 31.8 % (42.0-54.0) L 11/18/17 05:00 MCV 83.1 fL (80.0-100.0) 11/18/17 05:00 MCH 27.6 pg (27.0-34.0) 11/18/17 05:00 MCHC 33.3 g/dL (33.0-35.0) 11/18/17 05:00 RDW 18.1 % (11.6-16.5) H 11/18/17 05:00 Plt Count 237 X10^3/uL (150.0-450.0) 11/18/17 05:00 Plt Count Comment Adequate (ADEQUATE) 11/18/17 05:00 MPV 8.4 fL (7.4-11.0) 11/18/17 05:00 Neut % (Auto) 70.8 % (42.0-75.0) 11/18/17 05:00 Lymph % (Auto) 18.3 % (21.0-51.0) L 11/18/17 05:00 [place] % (Auto) 8.3 % (0.0-13.0) 11/18/17 05:00 Eos % (Auto) 1.5 % (0.9-2.9) 11/18/17 05:00 Baso % (Auto) 1.1 % (0.2-1.0) H 11/18/17 05:00 Neut # (Auto) 8.6 x10^3/uL (2.2-4.8) H 11/18/17 05:00 Lymph # (Auto) 2.2 X10^3/uL (1.3-2.9) 11/18/17 05:00 [place] # (Auto) 1.0 x10^3/uL (0.3-0.8) H 11/18/17 05:00 Eos # (Auto) 0.2 x10^3/uL (0.0-0.2) 11/18/17 05:00 Baso # (Auto) 0.1 X10^3/uL (0.0-0.1) 11/18/17 05:00 Absolute Nucleated RBC 0.1 /100WBC 11/18/17 05:00 Total Counted 100 11/08/17 04:35 Neutrophils % (Manual) 76 % (39-76) 11/08/17 04:35 Lymphocytes % (Manual) 20 % (13-43) 11/08/17 04:35 Monocytes % (Manual) 4 % (4-9) 11/08/17 04:35 Plt Morphology Comment Normal (NORMAL) 11/18/17 05:00 RBC Morphology Normal (NORMAL) 11/18/17 05:00 Sodium 140 mmol/L (136-145) 11/18/17 05:00 Corrected Sodium TNP 11/18/17 05:00 Potassium 4.2 mmol/L (3.5-5.1) 11/18/17 05:00 Chloride 104 mmol/L (98-107) 11/18/17 05:00 Carbon Dioxide 27.1 mmol/L (21-32) 11/18/17 05:00 BUN 6 mg/dL (7-18) L 11/18/17 05:00 Creatinine 0.56 mg/dL (0.70-1.30) L 11/18/17 05:00 Est GFR (MDRD) Af Amer > 60 (>60) 11/18/17 05:00 Est GFR (MDRD) Non-Af > 60 (>60) 11/18/17 05:00 Glucose 105 mg/dL (65-99) H 11/18/17 05:00 POC Glucose (mg/dL) 265 mg/dL (65-99) H 11/18/17 10:58 Calcium 8.7 mg/dL (8.5-10.1) 11/18/17 05:00 Corrected Calcium 10.4 mg/dL (8.5-10.1) H 11/18/17 05:00 Magnesium 1.7 mg/dL (1.7-2.9) 11/12/17 04:41 Total Bilirubin 1.10 mg/dL (0.2-1.0) H 11/18/17 05:00 AST 37 Units/L (15-37) 11/18/17 05:00 ALT 15 Units/L (12-78) 11/18/17 05:00 Alkaline Phosphatase 142 Units/L (46-116) H 11/18/17 05:00 Ammonia < 10 umol/L (11-32) L 11/05/17 08:55 Total Protein 6.7 g/dL (6.4-8.2) 11/18/17 05:00 Albumin 1.9 g/dL (3.4-5.0) L 11/18/17 05:00 Globulin 4.8 g/dL (2.5-4.5) H 11/18/17 05:00 Albumin/Globulin Ratio 0.4 Ratio (1.1-2.1) L 11/18/17 05:00 Specimen Type Random urine 11/05/17 08:09 Urine Color [place] (YELLOW) 11/05/17 08:09 Urine Appearance Clear (CLEAR) 11/05/17 08:09 Urine pH 7.0 (5.0 - 8.0) 11/05/17 08:09 Ur Specific [place] 1.005 (1.000-1.030) 11/05/17 08:09 Urine Protein 2+ (NEGATIVE) 11/05/17 08:09 Urine Glucose (UA) 4+ (NEGATIVE) 11/05/17 08:09 Urine Ketones Negative (NEGATIVE) 11/05/17 08:09 Urine Occult Blood Negative (NEGATIVE) 11/05/17 08:09 Urine Nitrite Negative (NEGATIVE) 11/05/17 08:09 Urine Bilirubin 1+ (NEGATIVE) 11/05/17 08:09 Urine Urobilinogen 3+ (NORMAL) 11/05/17 08:09 Ur Leukocyte Esterase 1+ (NEGATIVE) 11/05/17 08:09 Urine RBC 0-2 /HPF (NONE SEEN) 11/05/17 08:09 Urine WBC 0-2 /HPF (NONE SEEN) 11/05/17 08:09 Ur Squamous Epith Cells Rare /HPF (NEGATIVE) 11/05/17 08:09 Urine Bacteria Negative /HPF (NEGATIVE) 11/05/17 08:09 Urine Mucus Few /HPF (NEGATIVE) 11/05/17 08:09 Ur Culture Indicated? No/not indicated 11/05/17 08:09 Stool for White Cells Positive (NEGATIVE) A 11/06/17 13:37 Stl C. diff Tox B Gene Negative (NEGATIVE) 11/06/17 13:36 Stl C. diff [id number] Negative (NEGATIVE) 11/06/17 13:36 - Plan (1) Klebsiella pneumoniae sepsis Status: Acute Plan: IV ATBX, PICC LINE PLACEMENT. WILL ARRANGE FOR 14 DAYS IV ATBX AT HOME UPON D/C. CASE MANAGEMENT TO ARRANGE IN HOME CARE, DME (2) Pancreatic cancer Status: Acute Plan: SUPPORTIVE CARE, COMFORT MEASURES. CONSULT [facility]. RESP THERAPY PAIN CONTROL, NAUSEA CONTROL. IV ROCEPHIN, CULTURES PENDING (3) Fever Status: Acute (4) Pancreatic mass Status: Acute (5) Mental status alteration Status: Acute Qualifiers: Altered mental status type: transient alteration of awareness Qualified Code(s): R40.4 - Transient alteration of awareness (6) Generalized weakness Status: Acute (7) Hypertension Status: Chronic Qualifiers: Hypertension type: essential hypertension Qualified Code(s): I10 - Essential (primary) hypertension (8) Diabetes type 2, uncontrolled Status: Chronic (9) History of CVA (cerebrovascular accident) Status: Chronic
[2017-11-18] MEDS ORDERED: LASIX IVP SCH (14:00)
[2017-11-18] MEDS: MILK OF MAGNESIA PO SCH (22:03)
[2017-11-18] MEDS: COLACE CAP 100 MG PO SCH (22:03)
[2017-11-18] MEDS: ARICEPT TAB 10 MG PO SCH (22:04)
[2017-11-18] MEDS: SNACK - Diabetic Appropriate PO SCH (22:07)
[2017-11-18] MEDS: LEVAQUIN PREMIX IV 750 MG 750 MG/150 ML BAG IV SCH (22:16)
[2017-11-19] MEDS ORDERED: GLUCOPHAGE ONE (05:36)
[2017-11-19] MEDS: GLUCOPHAGE PO SCH (06:09)
[2017-11-19 06:31] LABS: BASOPHILS # (AUTO) 0.1 X10^3/uL (0.0-0.1); BASOPHILS % (AUTO) 0.7 % (0.2-1.0); EOSINOPHILS # (AUTO) 0.1 x10^3/uL (0.0-0.2); EOSINOPHILS % (AUTO) 0.5 % (0.9-2.9); HEMATOCRIT 31.7 % (42.0-54.0); HEMOGLOBIN 10.5 g/dL (13.5-18.0); LYMPHOCYTES % (AUTO) 7.4 % (21.0-51.0); MEAN CORPUSCULAR HEMOGLOBIN 27.7 pg (27.0-34.0); MEAN CORPUSCULAR HGB CONC 33.2 g/dL (33.0-35.0); MEAN CORPUSCULAR VOLUME 83.2 fL (80.0-100.0); MEAN PLATELET VOLUME 7.9 fL (7.4-11.0); MONOCYTES # (AUTO) 0.6 x10^3/uL (0.3-0.8); MONOCYTES % (AUTO) 4.9 % (0.0-13.0); NEUTROPHILS # (AUTO) 11.3 x10^3/uL (2.2-4.8); NEUTROPHILS % (AUTO) 86.5 % (42.0-75.0); PLATELET COUNT 242 X10^3/uL (150.0-450.0); RED BLOOD COUNT 3.81 X10^6/uL (4.7-6.0); RED CELL DISTRIBUTION WIDTH 18.3 % (11.6-16.5); WHITE BLOOD COUNT 13.1 X10^3/uL (3.6-10.0)
[2017-11-19 07:04] LABS: ALANINE AMINOTRANSFERASE 34 Units/L (12-78); ALKALINE PHOSPHATASE 222 Units/L (46-116); ASPARTATE AMINO TRANSFERASE 113 Units/L (15-37); BLOOD UREA NITROGEN 7 mg/dL (7-18); CALCIUM 9.1 mg/dL (8.5-10.1); CARBON DIOXIDE 27.6 mmol/L (21-32); CHLORIDE 103 mmol/L (98-107); COR CA(FOR HYPOALB) 10.7 mg/dL (8.5-10.1); COR NA(FOR HYPERGLY) 141 mmol/L (136-145); CREATININE 0.72 mg/dL (0.70-1.30); SODIUM 140 mmol/L (136-145); TOTAL PROTEIN 6.7 g/dL (6.4-8.2); eGFR NON BLACK RACES > 60 (>60)
[2017-11-19 08:24] VITALS: BP 130/63
[2017-11-19] MEDS: ROCEPHIN 1 GRAM IV PREMIX 1 G/50 ML IV.SOLN. IV SCH (09:18)
[2017-11-19] MEDS: ASPIRIN EC 81 MG PO SCH (09:19)
[2017-11-19] MEDS: ISOSORBIDE DINITRATE PO SCH (09:19)
[2017-11-19] MEDS: LASIX PO SCH (09:20)
[2017-11-19] MEDS: K-DUR TAB 20 MEQ PO SCH (09:20)
[2017-11-19] MEDS: PROTONIX INJ 40 MG VIAL IVP SCH (09:20)
[2017-11-19] MEDS: FOLIC ACID TAB 1 MG PO SCH (09:20)
[2017-11-19] MEDS: CELEXA PO SCH (09:20)
[2017-11-19] MEDS: PATIENT'S HOME MEDICATION PO SCH (09:21)
[2017-11-19] MEDS: ANTIVERT TAB 25 MG PO SCH (09:21)
[2017-11-19] MEDS: SINEMET (PLAIN) 25/100 MG PO SCH (09:24)
[2017-11-19] MEDS: COREG TAB 3.125 MG PO SCH (09:24)
[2017-11-19] MEDS: LOVENOX INJ 30 MG SYR SC SCH (09:25)
[2017-11-19] MEDS: NORCO 5/325 MG TAB PO PRN (10:02)
== END 2017-11-19 12:10 | disposition hospice, home (50) | DRG 435 ==
LOC: MED/SURG 08:00 → ER 08:00 → MED/SURG 16:10
PROVIDERS: ADMIT Obstetrics & Gynecology Obstetrics; ATTEND Internal Medicine
DX: I50.9 Heart failure, unspecified; I25.10 Atherosclerotic heart disease of native coronary artery without angina pectoris; R53.1 Weakness; C25.7 Malignant neoplasm of other parts of pancreas; C79.89 Secondary malignant neoplasm of other specified sites; R17 Unspecified jaundice; K21.9 Gastro-esophageal reflux disease without esophagitis; J01.30 Acute sphenoidal sinusitis, unspecified; E11.65 Type 2 diabetes mellitus with hyperglycemia; E87.1 Hypo-osmolality and hyponatremia; Z66 Do not resuscitate; B96.1 Klebsiella pneumoniae [K. pneumoniae] as the cause of diseases classified elsewhere; E78.2 Mixed hyperlipidemia; Z86.73 Personal history of transient ischemic attack (TIA), and cerebral infarction without residual deficits; A41.89 Other specified sepsis; I10 Essential (primary) hypertension
CPT/HCPCS: 36415; 36569; 70450; 71010; 71045; 71250; 80053; 81001; 82140; 83630; 83735; 84132; 85025; 87040; 87045; 87077; 87086; 87186; 87427; 87449; 87493; 87899; 92526; 92610; 94640; 94760; 96365; 96367; 96372; 97110; 97163; 97167; 97530; 99283; A4222; C9113; G0378; J0696; J1650; J1815; J1940; J1956; J3475; J3480; J3490; J7030; J7050; J7620; J8499